=== PATIENT | male | born 1960 | race Caucasian/White ===

== ENCOUNTER 2025-01-05 17:29 | Inpatient (IN) | payer MEDICARE, SELFPAY ==
[2025-01-05] VITALS (30 sets, daily range): BP systolic 136–255; BP diastolic 70–127
[2025-01-05 12:20] LABS: % Basophils 0.9 % (0-2); % Eosinophils 4.6 % (0-6); % Immature Granulocytes 0.3 % (0-0.5); % Lymphocytes 21.1 % (20.5-51.1); % Monocytes 6.5 % (1.7-9.3); % Neutrophils 66.6 % (42.2-75.2); Absolute Basophils 0.1 10^3/uL (0-0.2); Absolute Eosinophils 0.3 10^3/uL (0-0.7); Absolute Lymphocytes 1.4 10^3/uL (1.2-3.4); Absolute Monocytes 0.4 10^3/uL (0.1-0.6); Absolute Neutrophils 4.3 10^3/uL (1.4-6.5); Hematocrit 41.5 % (39.0-52.0); Hemoglobin 14.1 g/dL (13.0-18.0); Mean Corpuscular Hgb 29.7 pg (27.0-31.0); Mean Corpuscular Volume 87.6 fL (80.0-94.0); Mean Platelet Volume 10.7 fL (7.4-10.4); Nucleated Red Blood Cells % 0 % (-); Platelet Count 291 10^3/uL (130-400); Red Blood Cell Count 4.74 10^6/uL (4.70-6.10); Red Cell Dist. Width 15.2 % (11.5-14.5); White Blood Cell Count 6.5 10^3/uL (4.8-10.8)
[2025-01-05 12:36] LABS: ALT (SGPT) 23 U/L (0-50); AST (SGOT) 24 U/L (17-59); Albumin 4.4 g/dl (3.5-5.0); Alkaline Phosphatase 91 U/L (38-126); Blood Urea Nitrogen 18 mg/dl (9-20); Calcium 10.2 mg/dl (8.4-10.2); Carbon Dioxide 32 mmol/L (22-30); Chloride 104 mmol/L (98-107); Glucose 105 mg/dl (70-99); Potassium 4.1 mmol/L (3.5-5.1); Sodium 144 mmol/L (135-145); Total Bilirubin 0.7 mg/dl (0.2-1.3); eGFR > 60.00
--- NOTE | 2025-01-05 15:07 | ED.GENMED ---
History of Present Illness
General
Chief Complaint: Failure to Thrive
Source: patient and family (Sons state he has had expressive aphasia for a little while commenting he had a stroke)
Exam Limitations: none
Time Seen by Provider: 01/05/25 14:52
Nursing documentation reviewed up to this point in time: agreed with
History of Present Illness
History of Present Illness:
64 yo male presents to the emergency department c/o declining health and cognition for the past several months, worse over the past several days. His son thinks he had a stroke. He is having trouble moving his right arm. He has not seen a doctor
in 10 to 12 years.
If applicable-neuro sx onset
Onset of symptoms known: No
Time pt last seen normal is known: No
Past History
Past History
ED Past Medical History: None
ED Past Surgical History: Orthopedic (back) and Tonsilectomy
Social History
Tobacco: Former smoker
Alcohol: None
Drug: None
Living: alone
Employment: Retired
Review of Systems
Review of Systems
Allergies reviewed?: Yes
All Other Systems: Not applicable
Constitutional: Reports no symptoms
EENT: Reports no symptoms
Respiratory: Reports no symptoms
Cardiac: Reports no symptoms
ABD/GI: Reports no symptoms
: Reports no symptoms
Musculoskeletal: Reports no symptoms
Skin: Reports no symptoms
Neurological: Reports weakness and other (difficulty speaking)
Endocrine: Reports no symptoms
Hematologic/Lymphatic: Reports no symptoms
Psychiatric: Reports no symptoms
Phy Exam
Physical Exam
Physical Exam:
Physical Exam
General: Blood pressure 214/115
Neck: supple. no meningeal signs. normal posterior pharynx
Heart: s1/s2 regular rate and rhythm, no murmur. equal radial
pulses.
HEENT: Pupils equal round reactive to light, EOMI
Lungs: no acute respiratory distress. clear bilaterally
Abdomen: normal bowel sounds. not tender. no CVAT
Neuro: alert and oriented to person and place. Right arm weakness, resting tremor right arm
Skin: no rash
Psychiatric: well kept. interactive and cooperative
Extremities: no edema. no calf tenderness. negative homans. good distal pulses
Course
Orders/Labs/Results
Orders:
Orders
01/05/25
Electrocardiogram (*1) Stat
Comment: ALREADY DONE
01/05/25 12:11
CMP [Comprehensive Metabolic Panel] Urgent
Complete Blood Count/With Diff Urgent
Folate Urgent
Comment: ADD WEI
Glycohemoglobin (HgbA1c) Urgent
TSH Reflex To Free T4 Urgent
Comment: ADD ON
Vitamin B12 Urgent
Comment: ADD ON
01/05/25 14:53
CT Head W/o Iv Contrast Urgent
Comment:
Reason For Exam: expressive aphasia
01/05/25 15:19
Electrocardiogram (*1) Urgent
Reason for Study: Hypertension, Benign
EKG- Treatment ONCE
01/05/25 15:23
Urinalysis Reflex To Culture Urgent
Date Specimen was Collected: 01/05/25
Time Specimen was Collected: 15:18
01/05/25 16:17
HydrALAZINE [Apresoline] 20 mg PO NOW STA
01/05/25 16:49
CT Head & Neck Angio W/wo IV Routine
Comment:
Reason For Exam: L MCA infarct
01/05/25 17:00
Aspirin Chewable [Low Strength Aspirin] 81 mg PO DAILY
01/05/25 17:04
Admit/Transfer Patient As Directed
Co-Sign Provider:
Level of Care: Inpatient admission
Assign to:: ICU
Physician / Group: Leonardo Og
Diagnosis: Hypertensive emergency; acute/subacute CVA
Reason for Hospitalization: Hypertensive emergency; acute/subacute CVA
Expected length of stay greater than two midnights?: Yes
ELOS- Estimated Length of Stay in days: 3
I certify the patient meets the requirements for IP care: Yes
PRN Pain Medication Management As Directed
May give lesser potent ordered pain med per pt: Yes
preference::
Protocol:: Medication orders for pain may be administered in a
manner that supports deferring to patient preference
when the pt is:
- Requesting an ordered lesser potent pain medication.
Least to most potent pain medications are defined
as: acetaminophen < NSAID < tramadol < opioids
(morphine, oxycodone, hydromorphone).
- Requesting a lesser dose of the same medication IF
ORDERED.
- Requesting a less intrusive route of administration
if both routes are prescribed by the provider (PO <
IV).
01/05/25 17:05
Code Status As Directed
Resuscitation Status: Full Code
01/05/25 17:08
Add On- LAB Routine
Tests Added?: TSH; T4
01/05/25 17:10
Aspirin Chewable [Low Strength Aspirin] 324 mg PO NOW STA
Nicardipine 40 mg/200 ml [Cardene] 40 mg in 200 ml IV NOW
Initial dose in mg/hr, then titrate:: 5
Titrate to keep:: SBP 140 - 160 mmHg
Titrate by mg/hr:: 2.5 mg/hr
Frequency of titrations (minutes):: 5-15 minutes
Maximum dose in mg/hr:: 15
Begin to taper infusion when:: Remained at goal for 2hrs
Taper by mg/hr:: 2.5 mg/hr
Frequency of taper (minutes) if patient maintains goal:: every 15-30 minutes
Taper to off?: Yes
If infusion off & no longer maintaining goal:: Contact Provider
01/05/25 19:33
Acetaminophen [Tylenol/Feverall] 650 mg RECTAL Q4HPRN PRN
Acetaminophen [Tylenol] 650 mg PO Q4HPRN PRN
Atorvastatin [Lipitor] 40 mg PO QPM
Enoxaparin Sodium [Lovenox] 40 mg SC QPM
01/05/25 19:33
Case Management Consult ONCE
Case Management Consult: Discharge Planning
Comment: stroke/tia
DIETARY IP CONSULT Routine
Reason for Consult: stroke/TIA
NEUROLOGY CONSULT Urgent
Consulting Provider: Di Arauz
Was physician already notified: Yes
Quality Assurance Engineer Urgent
Urinalysis Routine
Activity As Directed
Activity Level: Out of Bed-Early Mobility
NIH Stroke Scale As Directed
Directions: Per protocol
Comment: every shift and with any change in condition or mental status
Neurological Checks As Directed
Frequency: q4h
Additional Instructions:: q4h x 24h upon admission to the floor, then qshift & with any change in condition
and mental status
Patient Education As Directed
Type: Stroke education packet
Comment: provide to patient and family
Swallow Screening CVA/TIA ONLY As Directed
Comment: NPO until swallowing screening completed
If patient FAILS swallow screening:: NPO, Speech Therapy consult, Aspiration Precautions
If patient PASSES swallow screening, diet:: Sodium, 2 Gram
Vital Signs As Directed
Frequency: Per unit guidelines
Ot Eval And Treat Routine
Pt Eval And Treat Routine
Activity Level: As Tolerated
Speech Therapy Eval & Treat Routine
DX Deep Vein Thrombosis Video Routine
01/06/25 06:00
Echo 2D MMode Color/Doppler IN AM
Reason for Study: hypertensive emergency
Cardiovascular Evaluation IN AM
Complete Blood Count/No Diff IN AM
US Abdominal Aorta IN AM
Comment:
Reason For Exam: smoking;HTN emergency;intermittent abdominal pain
Abnormal Lab Results
01/05/25
12:11
RDW 15.2 H %
(11.5-14.5)
MPV 10.7 H fL
(7.4-10.4)
Carbon Dioxide 32 H mmol/L
(22-30)
Glucose 105 H mg/dl
(70-99)
01/05/25 12:11
01/05/25 12:11
Vital Signs
Initial and Last Documented VS:
Initial Vital Signs
Temp Pulse Resp BP Pulse Ox
98.3 F 72 20 214/115 97
01/05/25 11:59 01/05/25 11:59 01/05/25 11:59 01/05/25 11:59 01/05/25 11:59
Last Documented Vital Signs
Temp Pulse Resp BP Pulse Ox
97.9 F 82 10 174/92 97
01/05/25 16:17 01/05/25 19:15 01/05/25 19:15 01/05/25 19:15 01/05/25 19:15
MDM/Problems Addressed
Differential Diagnosis Includes:
CVA, Parkinson's, UTI
MDM/Problems Addressed:
64-year-old male with accelerated hypertension, CVA, likely Parkinson's. Admit to hospitalist for further workup. Froilan osorio initiated
Chronic conditions affecting care: HTN
*Radiology
Radiology exam reviewed: radiology read reviewed (CT head shows right frontoparietal infarct)
*Pulse Oximetry
Patient hypoxic: no
*EKG
Interpreted by ED Provider?: Yes
EKG Intrepretation Date: 01/05/25
EKG Intrepretation Time: 16:14
Interpretation: abnormal
Comparison EKG: changes noted
Heart Rate: 74
Rate: normal
Rhythm: sinus
Nickerson: normal axis
Interval: normal interval
QRS Pattern: normal QRS
Ischemia: T-wave inversion
*Machine Tool Designer Interpretation
Rate: normal
Interpretation: normal
Heart Rate: 75
Rhythm: sinus
*Critical Care Note
Total Time (30-74mins, 75-104mins- exclusive of procedures): 30
comment:
Critical care statement: A total of 30 minutes of critical care time was provided for this patient. This includes management of unstable vital signs, evaluation of the patient at bedside, reviewing the patient's pertinent medical records, discussion
with consultants, review of old EKGs and review of pertinent medical records. This time with separate from time utilized to perform the aforementioned documented procedures
Patient Management
Social determinants of health affecting care: Living situation
Discussion with other providers: Hospitalist
Escalation/DeEscalation of care consider admission/obs:
admit indicated
ED Attending Note
-
Portions of this chart may have been created with voice recognition software.� Occasional wrong word or��sound alike� substitutions may have occurred due to the inherent limitations of voice recognition software.
Discharge Plan
Departure
Patient Disposition: Admit
Date of Disposition: 01/05/25
Time of Disposition: 16:24
Admit to: IMU
Presentation/result/management discussed w/ accepting MD/DO: Hospitalist
Patient with high blood pressure during this ER visit?: Yes
Condition: Fair
Discharge Problem:
Acute CVA (cerebrovascular accident), Accelerated hypertension
Interventions
Interventions:
*General Assessment Last Done: 01/05/25 12:05
*Neglect/Abuse Screening Last Done: 01/05/25 15:41
*ED- Fall Risk Assessment Last Done: 01/05/25 15:41
[2025-01-05 15:46] LABS: Urine Albumin Negative (Neg - Trace); Urine Bilirubin Negative (Negative); Urine Character Clear (Clear); Urine Color Yellow; Urine Glucose Negative (Negative); Urine Ketone Negative (Negative); Urine Leukocyte Negative (Negative); Urine Nitrite Negative (Negative); Urine Occult Blood Negative (Negative); Urine Urobilinogen Negative (Neg - 1+)
[2025-01-05] MEDS: APRESOLINE 20 MG PO (16:25)
--- NOTE | 2025-01-05 16:44 | CON.NEURO ---
Consultation
Order
Date of Consultation: 01/05/25
Requesting Provider: Chester Kelley DO
Reason for Consult: Stroke
Neurology Consultation Note.
HPI: This is a 64-year-old RH man who presented to [facility] on 01/05/2025 with progressive cognitive and language dysfunction.
He has been experiencing gradual in onset progressive expressive aphasia for approximately one year, with worsening symptoms since his snf in June,.
Mr. Rosas has had a progressive ambulatory decline (shuffling gait, imbalance, falls) with intermittent right arm/hand resting tremor for at least a year and a half. His son has been driving and managing his finances for the last 2 years at his
request.
His sister has been helping with cooking. The patient finally 'let us(sons) bring him in' today when his sister left for family emergency
ER VS: 214/115-255/110, 72, afebrile
EKG: NSR, QTc Int : 417 ms
PDMP:none
Labs: Glucose�105, normal sodium, creatinine, WBCs, platelets.
CT head wo contrast-generalized atrophy, left MCA territory hypodensity
PMH: No prior medical care
PSH: Lumbar laminectomy
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
FH: DM
All:NKDA
ROS: Negative for headache, change in vision, positive for resting right hand tremor. Negative for hallucinations
General: Well developed. In no acute distress.
Cardio: Regular rate and rhythm without murmur. Extremities are without cyanosis or edema.
Neuro:
Mental Status: Alert, oriented to self, person. Severe nonfluent expressive aphasia. Follows simple requests consistently.
Cranial Nerves: Pupils are equally round and reactive to light. EOMs full. Visual nielson full to confrontation. No ptosis. No nystagmus. V1-V3 intact to light touch and pinprick bilaterally, symmetric. Face symmetric. Normal hearing AU. The
palate elevated well. SCMs and traps 5/5. Tongue midline. No dysarthria.
Motor: Normal bulk and tone. No pronator or arm drift. Strength 5/5 throughout. No clonus.
Reflexes: 2+ throughout the upper extremities and 3+ knees. Plantar responses flexor bilaterally.
Sensory: Limited exam due to aphasia
Coordination: Intermittent right hand resting tremor. No dysmetria
Gait: deferred
Assessment and Plan:
I. Parkinsonism, likely vascular
II. Progressive nonfluent aphasia.
III. Hypertensive urgency
IV. Left MCA territory hypodensity. Subacute versus chronic infarct
-Continue Telemetry monitoring
-Please obtain CTA head and neck
-Start ASA 81 mg QD
-Please check B12, TSH, HbA1C, LDL.
-PT.
-DVT prophylaxis.
I personally reviewed all radiology and labs along with past medical records pertinent to current medical problems. Total time spent in patient care is 60 minutes.
Thank you for allowing us to participate in the care of this patient. We will continue to follow. Please do not hesitate to contact us with any questions or concerns.
Subjective/Objective
Subjective Data
Date of Service: January 05, 2025
Objective Data
Vital Signs
Temp Pulse Resp BP Pulse Ox
36.6 C 71 16 255/110 98
01/05/25 16:17 01/05/25 16:25 01/05/25 16:17 01/05/25 16:25 01/05/25 16:17
Lab Results
01/05/25 12:11
01/05/25 12:11
Sodium 144 mmol/L (135-145) 01/05/25 12:11
Potassium 4.1 mmol/L (3.5-5.1) 01/05/25 12:11
BUN 18 mg/dl (9-20) 01/05/25 12:11
Glucose 105 mg/dl (70-99) H 01/05/25 12:11
Calcium 10.2 mg/dl (8.4-10.2) 01/05/25 12:11
Patient Allergies
No Known Allergies Allergy (Unverified 01/05/25 12:02)
Vital Signs and Labs
-
Vital Signs and Labs:
Vital Signs
Temp Pulse Resp BP Pulse Ox
36.6 C 71 16 255/110 98
01/05/25 16:17 01/05/25 16:25 01/05/25 16:17 01/05/25 16:25 01/05/25 16:17
Lab Results
01/05/25 12:11
01/05/25 12:11
Sodium 144 mmol/L (135-145) 01/05/25 12:11
Potassium 4.1 mmol/L (3.5-5.1) 01/05/25 12:11
BUN 18 mg/dl (9-20) 01/05/25 12:11
Glucose 105 mg/dl (70-99) H 01/05/25 12:11
Calcium 10.2 mg/dl (8.4-10.2) 01/05/25 12:11
[2025-01-05] MEDS: LOW STRENGTH ASPIRIN PO (17:18)
[2025-01-05] MEDS: LOW STRENGTH ASPIRIN 324 MG PO (17:24)
[2025-01-05] MEDS: CARDENE 200 IV ×2 (17:37→19:51)
--- NOTE | 2025-01-05 17:55 | HPS.HSE ---
Addendum entered and electronically signed by Leonardo Og MD 01/05/25 22:00:
64M no hx presenting with progressive cognitive decline and speech changes that has been ongoing of the last 2 years. Now found to have concerning finding on CT of subacute CVA along with a blood pressure of >230.
Subacute CVA with concern for Primary expressive (per Neuro) and Parkinson (seborrhoic dermatitis and resting pill roll tremor)
-MRI/MRA
-Asa
-HIStatin
-Obtain A1c and Lipid profile
-Neuro consult
HTN Emergency
-Recieved oral agents in the ED
-Strted on Cardene gtt with SBP/MAP reduction of 25% within 24hours
-Start low dose lisinopril and HCTZ
-Check 2d echo
-Check UA for protein
?Intention reported per son
-If BP still uncontrolled can trial low dose propanolol
LVH on EKG
-Likely related to long standing uncontrolled HTN
-Check 2d echo
Smoking hx - active
-Discussed cessation
-Give NRT
-Abdominal Ultraosund to R/o AAA
Original Note:
Family Physician
-
Family Physician: * NONE
Chief Complaint
-
Aphasia, per sons
History of Present Illness
Michael Rosas, 64-year-old male, who has not seen a physician in years is brought in by his sons for at least a year of expressive aphasia, worsening tremors, balancing and gait issues, recurrent falls and progressive cognitive decline. In the ED, he
was found to have blood pressure in 250s/110s and was given hydralazine PO. CT head consistent with acute/subacute CVA. Neurology saw in the ED; no indication for TNK. He is also a smoker and has complained of occasional abdominal pain generalized
for the past few years.
Medical History
Past Medical History
Past Medical History: Reports Other (chronic back pain; tobacco use disorder)
Past Surgical History: Reports Other (spine surgery)
Social History
Tobacco: Smoker (previous pack a day; 2-3 cigs per week now)
Alcohol: Occasional
Drug: None
Employment: Retired
Family History
Family History: Not pertinent
Allergies / Home Medications
Allergies reflects when Allergies were last updated in [facility] [employer].
Home Medications with original date entered in [employer]
Allergy/Medication List:
Allergies
Allergy/AdvReac Type Severity Reaction Status Date / Time
No Known Allergies Allergy Unverified 01/05/25 12:02
Home Medications
naproxen 220 mg-diphenhydramine 25 mg tablet (Aleve PM) 2 tab PO HS 01/05/25
naproxen sodium 220 mg tablet (Aleve) 440 mg PO BIDPRN PRN mild pain 01/05/25
Review of Systems
-
History Source: Patient
Constitutional: Reports No Symptoms
EENT: Reports No Symptoms
Respiratory: Reports No Symptoms
Cardiac: Reports No Symptoms
Abdomen/GI: Reports No Symptoms
: Reports No Symptoms
Musculoskeletal: Reports No Symptoms
Skin: Reports No Symptoms
Neurological: Reports No Symptoms
Endocrine: Reports No Symptoms
Hematologic/Lymphatic: Reports No Symptoms
Psych: Reports No Symptoms
Physical Exam
Vital Signs
Vital Signs
Temp Pulse Resp BP Pulse Ox
97.9 F 74 16 220/117 98
01/05/25 16:17 01/05/25 17:38 01/05/25 17:38 01/05/25 17:38 01/05/25 17:38
Physical Exam
General: No Apparent Distress and Comfortable
HEENT: NormoCephalic, Anicteric, Moist mucous membranes and No Ptosis
Respiratory: Clear and Non Labored Respirations
Cardiac: S1/S2 and Regular Rhythm; No Rub or Gallop
GI: Soft, Non Tender, Non Distended and No Hepatosplenomegaly
Genito-urinary: No costovertebral tender
Musculoskeletal: No Clubbing, No Cyanosis and No Edema
Skin: Warm, Dry, IV/Catheter Site and Other (excoriations generalized, changes consistent with seborrheic dermatitis)
Neuro: Awake, Alert, Oriented and Tremors (resting and intention tremor; pill-rolling tremor)
Hematologic/Lymphatic: No Lymphadenopathy
Psych: Calm and Anxious
Laboratory Results
-
01/05/25 12:11
01/05/25 12:11
Laboratory Results
Total Bilirubin 0.7 mg/dl (0.2-1.3) 01/05/25 12:11
AST 24 U/L (17-59) 01/05/25 12:11
ALT 23 U/L (0-50) 01/05/25 12:11
Alkaline Phosphatase 91 U/L (38-126) 01/05/25 12:11
Impression/Plan
-
Hypertensive emergency
- Status-post hydralazine 20 mg PO in ED.
- Nicardipine drip to keep SBP 180-200 mmHg in the first 24 hours.
- Start hydrochlorothiazide and lisinopril.
- Goal of lowering BP by only 25% in the first 24 hours.
- Suspect hypertension has been a chronic issue, and anticipate requiring a multi-drug regimen.
- Check echocardiogram and abdominal aorta ultrasound.
- Admit to the ICU for nicardipine drip management.
Subacute/chronic cerebrovascular accident
Expressive aphasia, likely secondary to above
- Neurology saw him in the ED.
- Start aspirin and high-intensity statin.
- MR without contrast in AM.
- Lipid panel, TSH with T4, A1c and B12 pending.
Suspected Parkinsonian disorder
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
- Needs further outpatient evaluation.
- Likely responsible for increased falls of late.
Tobacco use disorder
- Affects all aspects of health.
- Nicotine patch if needed.
Chronic back pain
- Analgesia as needed.
Thromboprophylaxis
- Enoxaparin.
Code status
- Full code.
- Medical POA: Kamaljit (son).
[2025-01-05 18:21] LABS: TSH Reflex To Free T4 1.98 uIU/ml (0.47-4.68)
[2025-01-05 19:36] LABS: Folate 9.6 ng/ml (2.76-20); Vitamin B12 249 pg/ml (239-931)
--- NOTE | 2025-01-05 19:45 | PTCARENOTE ---
Rec'd pt from ER via stretcher accomp by FARM FACILITY MANAGER, NIH done w/ FARM FACILITY MANAGER- NIH 2, pt awake, oriented, cooperative, slight exp aphasia, SINA at 3mm, arms tremulous, anxious, sons at bedside, Sinus rhythm cardene gtt started for bp 213/99- see flow sheet for
titrations-goal SBP 180-200, weak distal pulses, no edema, RA, lungs clear, sat 96, + bowel sounds,no bm, abdsoft/nontender,sharon fluids, #25 condom cath applied
--- NOTE | 2025-01-05 19:49 | PTCARENOTE ---
Pt transported to ICU by this RN in ed stretcher, monitored with family to ICU. report called prior to, to Mira ROJAS and additional verbal report provided at bedside. NIH preformed by receiving RN. plan of care continues to be followed.
[2025-01-05 19:54] LABS: Glucose - Point of Care 111 mg/dl (70-99)
[2025-01-05] MEDS: LIPITOR 40 MG PO (20:11)
[2025-01-05] MEDS: ZESTRIL 5 MG PO (20:11)
[2025-01-05] MEDS: ORETIC 12.5 MG PO (20:11)
[2025-01-05] MEDS: LOVENOX 40 MG SC (20:11)
[2025-01-05 20:22] LABS: Phosphorus 4.4 mg/dl (2.5-4.5)
[2025-01-05 20:28] LABS: INR 1.04; PT 13.9 Sec (11.4-14.6)
[2025-01-05 20:29] LABS: APTT 30.9 Sec (23.4-35.0)
--- NOTE | 2025-01-05 20:45 | PTCARENOTE ---
To CT for CT head/ neck angio via bed accomp by self
--- NOTE | 2025-01-05 21:15 | PTCARENOTE ---
returned from CT
2129 cardene gtt off for bp 162/82- K SYEDA Jones aware- will cont to monitor
[2025-01-05 21:46] LABS: Urine Albumin Negative (Neg - Trace); Urine Bilirubin Negative (Negative); Urine Character Clear (Clear); Urine Color Straw; Urine Glucose Negative (Negative); Urine Ketone Negative (Negative); Urine Leukocyte Negative (Negative); Urine Nitrite Negative (Negative); Urine Occult Blood Negative (Negative); Urine Urobilinogen Negative (Neg - 1+)
[2025-01-05] MEDS: MELATONIN 5 MG PO (22:21)
[2025-01-05 22:54] LABS: Protein/creatinine Ratio 0.6; Urine Protein 9 mg/dl
[2025-01-05] MEDS: NSS 500 IV (23:48)
--- NOTE | 2025-01-05 23:53 | PTCARENOTE ---
sys reviewed, José Miguel Jones NP aware of bp, 500ml nss bolus hung per order, no changes in neuro assessment
[2025-01-06] VITALS (31 sets, daily range): BP systolic 156–193; BP diastolic 84–161; PULSE 87–100; O2SAT 94–97; BMI 19.6
[2025-01-06 03:34] LABS: Hematocrit 42.3 % (39.0-52.0); Mean Corp Hgb Conc. 35.5 g/dL (33.0-37.0); Mean Corpuscular Volume 84.6 fL (80.0-94.0); Mean Platelet Volume 10.3 fL (7.4-10.4); Platelet Count 282 10^3/uL (130-400); Red Cell Dist. Width 15.1 % (11.5-14.5); White Blood Cell Count 7.7 10^3/uL (4.8-10.8)
--- NOTE | 2025-01-06 03:37 | PTCARENOTE ---
sys reviewed, neuro unch
[2025-01-06 03:56] LABS: ALT (SGPT) 21 U/L (0-50); AST (SGOT) 26 U/L (17-59); Albumin 3.8 g/dl (3.5-5.0); Alkaline Phosphatase 96 U/L (38-126); Blood Urea Nitrogen 13 mg/dl (9-20); Calcium 9.9 mg/dl (8.4-10.2); Carbon Dioxide 28 mmol/L (22-30); Chloride 104 mmol/L (98-107); Estimated Creatinine Clearance 86 ml/min; Glucose 105 mg/dl (70-99); HDL Cholesterol 69 mg/dl; LDL Cholesterol, Calculated 167 mg/dl; Potassium 3.8 mmol/L (3.5-5.1); Sodium 140 mmol/L (135-145); Total Bilirubin 0.8 mg/dl (0.2-1.3); Total Cholesterol 254 mg/dl (50-199); Total Protein 6.6 g/dl (6.3-8.2); Triglyceride 90 mg/dl (10-149); Very Low Density Lipoprotein 18 mg/dl (0-30); eGFR > 60.00
--- NOTE | 2025-01-06 08:20 | CON.INTV ---
Consultation
Consultation Request
Date/Time Consultation Requested: 01/05/20251739
Date/Time Consultation Performed: 01/06/2025817
Requesting Provider: Dr. Whatley
Performing Provider: Dr. Taylor
Reason for Consultation: HTN crisis on cardene drip
Medical History
-
Chief Complaint: Difficulty speaking with physical and cognitive decline
History of Present Illness:
64-year-old male with a past medical history of chronic back pain and tobacco use disorder who presents with difficulty answering questions and declining physical + cognitive health. Patient has not seen a doctor in the past 10-12 years. Family is
noticed this cognitive decline with speech changes over the last 2 years. Initially in the ER he was afebrile to 98.3 �F, pulse rate 72, respiratory rate 20, BP 214/115 and saturating 97% on room air. SBP sheldon to as high as 255 mmHg. Initial labs
showed Hb 14.[address] head showed suspected acute/subacute infarcts in the left frontal parietal lobe. CTA head/neck showed no significant vascular occlusion, aneurysm or dissection. CXR showed no acute cardiopulmonary process.
He was given aspirin 324 mg X1 + hydralazine in the ER and then required Cardene drip. He was then admitted to the ICU for further care and Site Head services consulted for additional management/recommendations.
When I saw the patient this morning, he was resting in a chair no acute distress. His son, Kamaljit, was at bedside and all questions were answered. Patient's heart rate was 86, BP 193/121 and saturating 94% on room air. Patient says he feels okay,
denying ROSALES, chest pain, abdominal pain, nausea, fevers or chills.
PMHx: Chronic back pain, tobacco use disorder
PSHx: Spine surgery
Past Medical History
Past Medical History: Other (Above as per HPI)
Past Surgical History: Other (Above as per HPI)
Social History
Tobacco: Smoker (Previously smoked 1 PPD; now 2 to 3 cigarettes last week)
Alcohol: Occasional
Drug: None
Employment: Retired
Family History
Family History: Reviewed & Not Pertinent
Allergies / Home Medications
Allergies
Allergy/AdvReac Type Severity Reaction Status Date / Time
No Known Allergies Allergy Unverified 01/05/25 12:02
Home Medications
�Medication �Instructions �Recorded �Confirmed �Last Taken �Type
naproxen 220 mg-diphenhydramine 25 2 tab PO HS 01/05/25 01/05/25 Unknown History
mg tablet (Aleve PM)
naproxen sodium 220 mg tablet 440 mg PO BIDPRN PRN mild pain 01/05/25 01/05/25 Unknown History
(Aleve)
Review of Systems
-
History Source: Patient
All other systems: Negative unless noted
Vitals / Labs / Diagnostic Testing
Vital Signs
Temp Pulse Resp BP Pulse Ox
98.1 F 63 14 156/90 96
01/06/25 07:30 01/06/25 06:00 01/06/25 06:00 01/06/25 06:00 01/06/25 06:00
Lab Data
01/06/25 03:22
01/06/25 03:22
Laboratory Results
01/05/25
20:06
PT 13.9
INR 1.04
APTT 30.9
Diagnostic Testing:
Physical Exam
-
HEENT: Normocephalic and Anicteric
Cardiovascular: S1/S2 and Peripheral Edema (negative)
Respiratory: Wheeze (negative), Rales (negative), Rhonchi (negative) and Non-Labored Respirations
GI: Soft, Non Distended, Non Tender and Normal Bowel Sounds
Neurology: AO x 3 and Tremors (negative)
Skin: Warm and Dry
General: Respiratory Distress (negative), Comfortable, Fever (negative), Chills (negative) and Other (Chronically ill appearing/deconditioned)
Assessment
-
Assessment: 64-year-old male with a past medical history of chronic back pain and tobacco use disorder who presents with difficulty answering questions and declining physical + cognitive health. Patient has not seen a doctor in the past 10-12
years. Family is noticed this cognitive decline with speech changes over the last 2 years. Initially in the ER he was afebrile to 98.3 �F, pulse rate 72, respiratory rate 20, BP 214/115 and saturating 97% on room air. SBP sheldon to as high as 255
mmHg. Initial labs showed Hb 14.[address] head showed suspected acute/subacute infarcts in the left frontal parietal lobe. CTA head/neck showed no significant vascular occlusion, aneurysm or dissection. CXR showed no acute
cardiopulmonary process. He was given aspirin 324 mg X1 + hydralazine in the ER and then required Cardene drip. He was then admitted to the ICU for further care and Site Head services consulted for additional management/recommendations.
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
Impression:
#Hypertensive crisis requiring Cardene drip --> now discontinued
#Hypercholesterolemia
#Active tobacco use disorder
#Progressive expressive aphasia with cognitive decline and progressive ambulatory dysfunction likely due to subacute left MCA infarct with parkinsonism
#Chronic back pain
Plan:
- Patient was admitted to the ICU, required Cardene drip which has been off since the evening of 01/05
- Lower SBP by 25% over the first 24 hours the goal SBP for today until 4 PM is 170-190, then can lower further from there to goal SBP<140-160mmHg
- Start PO anti-hypertensives to assure pt stays off cardene gtt
- Neurology consulted and recommendations appreciated
- MRI brain pending
- Neurology wants patient to be on baby aspirin once daily
- PT/OT/AIR CHIPPER
- Lipitor started given LDL is 167 (goal LDL<70)
- Patient has a low B12 level despite it being in normal range; would check MMA and homocysteine levels
- Hospitalist team has started supplemental B12
- Maintain SpO2 >90-94% using supplemental O2 if needed
- Aspiration precautions
- prn nebulized bronchodilators - not currently bronchospastic
- Nicotine patch
- Incentive spirometer encouraged 10x per hour for at least 4 hrs a day
- Outpatient PFTs to assess for an obstructive or restrictive lung defect
- Maintain MAP>65
- Replete electrolytes with K>4, Mg>2
- Maintain euglycemia with goal BG 140-180
- Trend H/H and transfuse if needed to keep Hb>7g/dL; keep plt>100k
- DVT ppx: [facility]
Outpatient pulmonary office evaluation will be arranged for lung cancer screening given his significant tobacco use history.
Patient is now stable to be downgraded to telemetry. No additional recommendations at this time. Site Head/Pulmonary service will now sign off. Thank you for allowing us to be involved in the care of this patient. Please reconsult if there are
any additional questions/concerns, or if patient's respiratory status deteriorates.
Data:
CT head 01/05/2025: Possible small areas of acute/subacute infarcts in the left frontoparietal lobe. MRI would be of greater sensitivity.
CTA Head/Neck 01/05/2025: No significant vascular occlusion, aneurysm or dissection.
--- NOTE | 2025-01-06 09:00 | PTCARENOTE ---
Rec'd pt at 0700- Neuro check and NIH completed with offgoing shift. Rec't pt awake alert and overall oriented resting in bed. Converstation is appropriate but pt still with some expressive aphasia especially when asking how old his is, the month or
his birthdate. NIH is a 3.Speech is clear. Smile is even. Tongue protrudes midline. NOLAND. Pt with resting arm tremors. Denies pain. Denies dizziness or headache. Skin is pink wm and dry. Respirs are unlabored on RA with sats of 97%. BS are clear.
Monitor SR. VS as documented. + pulses. No edema. Abd is soft with + BS. Denies nausea. #[address] and pt voiding yellow urine. Capped ints intact L and R arms sites wnl. Pt able to help reposition himself. Plan of care reviewed with
pt. Call puente in reach.
[2025-01-06] MEDS: LOW STRENGTH ASPIRIN 81 MG PO (09:33)
[2025-01-06] MEDS: ORETIC 12.5 MG PO (09:33)
[2025-01-06] MEDS: ZESTRIL 5 MG PO (09:33)
--- NOTE | 2025-01-06 09:55 | W.PN.NEURO.1 ---
Today's Communication / Plan
-
.
Subjective/Objective
Subjective Data
Date of Service: January 06, 2025
Neurology follow-up note
24-hour events: Blood pressure has improved. Afebrile.
Mr. Rosas reports no complaints. He denies headache, change in vision or strength.
Brain MRI is pending
Labs: Vitamin B12�249, TSH�normal
CT head wo contrast-generalized atrophy, left MCA territory hypodensity
CTA head and neck�no hemodynamically significant stenosis
PMH: No prior medical care
PSH: Lumbar laminectomy
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
FH: DM
All:NKDA
ROS: Negative for headache, change in vision, positive for resting right hand tremor. Negative for hallucinations
General: Well developed. In no acute distress.
Cardio: Regular rate and rhythm without murmur. Extremities are without cyanosis or edema.
Neuro:
Mental Status: Alert, oriented to self, person. nonfluent expressive aphasia (slightly improved). Follows simple requests consistently.
Cranial Nerves: Pupils are equally round and reactive to light. EOMs full. Visual nielson full to confrontation. No ptosis. No nystagmus. V1-V3 intact to light touch and pinprick bilaterally, symmetric. Face symmetric. Normal hearing AU. The
palate elevated well. SCMs and traps 5/5. Tongue midline. No dysarthria.
Motor: Normal bulk and tone. No pronator or arm drift. Strength 5/5 throughout. No clonus.
Reflexes: 2+ throughout the upper extremities and 3+ knees. Plantar responses flexor bilaterally.
Sensory: Limited exam due to aphasia
Coordination: Intermittent right hand resting tremor. No dysmetria
Gait: deferred
Assessment and Plan:
I. Parkinsonism, likely vascular
II. Progressive nonfluent aphasia.
III. Hypertensive urgency
IV. Left MCA territory hypodensity. Subacute versus chronic infarct
V. Vitamin B12 insufficiency
-Continue Telemetry monitoring
-Continue ASA 81 mg QD
-Start cyanocobalamin 1000 mcg once a day
-Will follow-up brain MRI result
-DVT prophylaxis.
I personally reviewed all radiology and labs along with past medical records pertinent to current medical problems. Total time spent in patient care is 35 minutes.
Thank you for allowing us to participate in the care of this patient. We will continue to follow. Please do not hesitate to contact us with any questions or concerns
Objective Data
Vital Signs
Temp Pulse Resp BP Pulse Ox
36.7 C 63 14 156/90 96
01/06/25 07:30 01/06/25 06:00 01/06/25 06:00 01/06/25 06:00 01/06/25 06:00
Lab Results
01/06/25 03:22
01/06/25 03:22
PT 13.9 Sec (11.4-14.6) 01/05/25 20:06
INR 1.04 01/05/25 20:06
APTT 30.9 Sec (23.4-35.0) 01/05/25 20:06
Sodium 140 mmol/L (135-145) 01/06/25 03:22
Potassium 3.8 mmol/L (3.5-5.1) 01/06/25 03:22
BUN 13 mg/dl (9-20) 01/06/25 03:22
Glucose 105 mg/dl (70-99) H 01/06/25 03:22
Calcium 9.9 mg/dl (8.4-10.2) 01/06/25 03:22
Phosphorus 4.4 mg/dl (2.5-4.5) 01/05/25 12:11
LDL Cholesterol, Calc 167 mg/dl 01/06/25 03:22
Vitamin B12 249 pg/ml (239-931) 01/05/25 12:11
Patient Allergies
No Known Allergies Allergy (Unverified 01/05/25 12:02)
Vital Signs and Labs
-
Vital Signs and Labs:
Vital Signs
Temp Pulse Resp BP Pulse Ox
36.7 C 63 14 156/90 96
01/06/25 07:30 01/06/25 06:00 01/06/25 06:00 01/06/25 06:00 01/06/25 06:00
Lab Results
01/06/25 03:22
01/06/25 03:22
PT 13.9 Sec (11.4-14.6) 01/05/25 20:06
INR 1.04 01/05/25 20:06
APTT 30.9 Sec (23.4-35.0) 01/05/25 20:06
Sodium 140 mmol/L (135-145) 01/06/25 03:22
Potassium 3.8 mmol/L (3.5-5.1) 01/06/25 03:22
BUN 13 mg/dl (9-20) 01/06/25 03:22
Glucose 105 mg/dl (70-99) H 01/06/25 03:22
Calcium 9.9 mg/dl (8.4-10.2) 01/06/25 03:22
Phosphorus 4.4 mg/dl (2.5-4.5) 01/05/25 12:11
LDL Cholesterol, Calc 167 mg/dl 01/06/25 03:22
Vitamin B12 249 pg/ml (239-931) 01/05/25 12:11
Medications
-
Medications:
Generic Name Dose Route Start Last Admin
Trade Name Freq PRN Reason Stop Dose Admin
Acetaminophen 650 mg 01/05/25 19:33
Acetaminophen 650 Mg Rectal Suppository RECTAL 02/02/25 19:32
Q4HPRN PRN
ROSALES, mild pain, or temp >100.4F
Acetaminophen 650 mg 01/05/25 19:33
Acetaminophen 325 Mg Tablet PO 02/02/25 19:32
Q4HPRN PRN
ROSALES, mild pain, or temp >100.4F
Aspirin 81 mg 01/05/25 17:00 01/06/25 09:33
Aspirin 81 Mg Chewable Tablet PO 02/02/25 16:59 81 mg
DAILY MARTIN Administration
Atorvastatin Calcium 40 mg 01/05/25 19:33 01/05/25 20:11
Atorvastatin (Lipitor) 40 Mg Tablet PO 02/02/25 19:32 40 mg
QPM MARTIN Administration
Cyanocobalamin 1,000 mcg 01/06/25 09:00
Cyanocobalamin 1,000 Mcg Tablet PO 02/03/25 08:59
DAILY MARTIN
Enoxaparin Sodium 40 mg 01/05/25 20:00 01/05/25 20:11
Enoxaparin Sodium 40 Mg/0.4 Ml Syringe SC 02/02/25 19:59 40 mg
QPM MARTIN Administration
Hydrochlorothiazide 12.5 mg 01/05/25 20:00 01/06/25 09:33
Hydrochlorothiazide 12.5 Mg Tablet PO 02/02/25 19:59 12.5 mg
BID MARTIN Administration
Nicardipine/Sodium Chloride 40 mg in 200 mls @ 0 mls/hr 01/05/25 19:33 01/05/25 19:51
Cardene IV 200 mls
PER PROTOCOL MARTIN Administration
Protocol
Per Protocol
Lisinopril 5 mg 01/05/25 20:00 01/06/25 09:33
Lisinopril 5 Mg Tablet PO 02/02/25 19:59 5 mg
BID MARTIN Administration
Melatonin 5 mg 01/05/25 22:00 01/05/25 22:21
Melatonin 5 Mg Tablet PO 02/02/25 21:59 5 mg
HS MARTIN Administration
Sodium Chloride 0 flush 01/05/25 20:00
Sodium Chloride 0.9% (Flush) Syringe IV 02/02/25 19:59
PER PROTOCOL MARTIN
Home Medications
-
Home Medications
naproxen 220 mg-diphenhydramine 25 mg tablet (Aleve PM) 2 tab PO HS 01/05/25
naproxen sodium 220 mg tablet (Aleve) 440 mg PO BIDPRN PRN mild pain 01/05/25
--- NOTE | 2025-01-06 10:00 | PTCARENOTE ---
ECHO done. Pt resting. VS as documented. AM meds given as ordered at 0935
[2025-01-06 10:25] LABS: Glycohemoglobin (HgbA1c) 5.5 % (4.0-5.6)
[2025-01-06 10:27] LABS: Vitamin B12 262 pg/ml (239-931)
--- NOTE | 2025-01-06 11:07 | PTCARENOTE ---
US of aorta being done currently. BP is elevated in the 160-190's despite am meds. Will update Dr. Og. No other changes
--- NOTE | 2025-01-06 11:22 | CM ---
Addendum entered by Tee Ruelas 01/06/25 16:07:
PT and OT evaluations noted -rehab level of care recommended. CM discussed it with the pt and son Kamaljit and they requested [facility].
A referral to [facility] made
Original Note:
CM following rte: discharge planning.
Reviewed pt's chart, met with pt.
Pt is a 64 year old male, admitted with primary dx of TIA/CVA. CT head consistent with acute/subacute CVA. Per sons, pt has been experiencing for the past 2 years expressive aphasia, worsening tremors, balancing and gait issues, recurrent falls and
progressive cognitive decline.
Pt reports he lives alone 2SH, 1 step to enter, has 2 sons. 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 No DME, VN or SNF history.
PT, OT and ST will evaluate the pt to determine a level of care at discharge.
PCP: pt stated he does not have PCP.
Pharmacy: [facility]
D/C plan: uncertain at this time. Awaiting PT/OT/D -ST recommendations.
CM will follow with discharge plan updates as hospitalization progresses
--- NOTE | 2025-01-06 11:24 | W.PN.HOSP.TC ---
Today's Communication/Plan
-
* Echocardiogram, abdominal aorta ultrasound, and MR brain W/O contrast today.
* Transfer to telemetry.
* Optimize PO antihypertensives.
Assessment / Plan
Assessment / Plan
Assessment
Michael Rosas, 64-year-old male, who has not seen a physician in years is brought in by his sons for at least a year of expressive aphasia, worsening tremors, balancing and gait issues, recurrent falls and progressive cognitive decline. In the ED, he
was found to have blood pressure in 250s/110s and was given hydralazine PO. CT head consistent with acute/subacute CVA. Neurology saw in the ED; no indication for TNK. He is also a smoker and has complained of occasional abdominal pain generalized
for the past few years.
Impression and plan
Hypertensive emergency
- Status-post hydralazine 20 mg PO in ED, and nicardipine drip in the ICU.
- Increase hydrochlorothiazide and lisinopril dosing.
- Goal SBP of 140-160 after 4 PM today.
- Suspect hypertension has been a chronic issue, and anticipate requiring a multi-drug regimen.
- Echocardiogram and abdominal aorta ultrasound today.
- Transfer to telemetry.
- Anticipate requiring additional antihypertensive agents.
- Needs to establish with a primary; will discuss options, including the residency clinic.
Subacute/chronic cerebrovascular accident
Expressive aphasia, likely secondary to above
- Neurology saw him in the ED.
- Continue aspirin and high-intensity statin indefinitely.
- MR without contrast today.
- TSH normal, LDL 167 (not at goal of <70).
Elevated ejection fraction
Stage I diastolic dysfunction
- Would recommend a repeat echocardiogram as outpatient eventually.
- Discuss with primary.
Suspected Parkinsonian disorder
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
- Needs further outpatient evaluation.
- Likely responsible for increased falls of late.
- Will need pharmacotherapy, and neurology consultation as outpatient.
B12 deficiency
- Replete with 1000 mg PO daily for now.
Tobacco use disorder
- Affects all aspects of health.
- Nicotine patch if needed.
Chronic back pain
- Analgesia as needed.
Thromboprophylaxis
- Enoxaparin.
Code status
- Full code.
- Medical POA: Kamaljit (son).
Anticipated Discharge: Within 24 hours
Subjective/Interval History
-
Date of Service: January 06, 2025
Stable overnight. Feeling better.
Objective Data
-
Labs:
Laboratory Results
01/06/25
03:22
WBC 7.7
Hgb 15.0
Hct 42.3
Plt Count 282
Sodium 140
Potassium 3.8
Chloride 104
Carbon Dioxide 28
BUN 13
Creatinine 0.7
Glucose 105 H
Calcium 9.9
Total Bilirubin 0.8
AST 26
ALT 21
Alkaline Phosphatase 96
Vital Signs:
Vital Signs
Temp Pulse Resp BP Pulse Ox
97.5 F 90 16 192/108 96
01/06/25 11:21 01/06/25 11:00 01/06/25 11:00 01/06/25 11:00 01/06/25 11:00
I&O
01/05/25 01/06/25 01/07/25
06:59 06:59 06:59
Intake Total 612.5 / 612.5 0 / 0
Output Total 1850 / 185
Balance -1237.5 / -1237.5 0 / 0
Review of Systems
-
History Source: Patient
Constitutional: Reports No Symptoms
EENT: Reports No Symptoms Reported
Respiratory: Reports No Symptoms
Cardiac: Reports No Symptoms
Abdomen/GI: Reports No Symptoms
Genitourinary: Reports No Symptoms
Musculoskeletal: Reports No Symptoms
Skin: Reports No Symptoms
Neuro: Reports No Symptoms
Endocrine: Reports No Symptoms
Hematologic / Lymphatic: Reports No Symptoms
Allergy / Immunology: Reports No Symptoms
Physical Exam
-
General: No Apparent Distress and Comfortable
HEENT: Normocephalic, Atraumatic, Moist Mucous Membranes, Anicteric and No Ptosis
Respiratory: Clear to Auscultation and Non Labored Respirations
Cardiac: Regular Rhythm and S1/S2
GI: Soft, Nontender, Nondistended and No Hepatosplenomegaly
Genito-urinary: No Costovertebral Tender
Musculoskeletal: No Clubbing, No Cyanosis and No Edema
Skin: Warm, Dry and IV Access / Catheter Site
Neuro: Awake, Alert, Oriented, No Motor Deficits and No Sensory Deficits
Hematologic / Lymphatic: No Lymphadenopathy
Psych: Calm
--- NOTE | 2025-01-06 11:30 | PTCARENOTE ---
Pt anxious and c/o being uncomfortable in the bed. Assisted oob to the chair with assist of 1. Gait is weak and a little unsteady/shaky. Chair alarm placed and pt reminded that he needs to use the call puente if he wants to stand up. Wanted to keep
the condom cath on. Skin care given. Pt did own mouth care. Visitor in with pt.
--- NOTE | 2025-01-06 12:00 | PTCARENOTE ---
Pt on toilet then BSC - had large brown BM on BSC. Assessment overall is unchanged. Overall conversation is appropriate but still has some expressive aphasia. Needs direction for some activity - especially when assisting to the bathroom for bsc.
Very shaky with his gait. VS as documented. Son in to see pt and updated. Call puente in reach
[2025-01-06] MEDS: VITAMIN B-12 1000 MCG PO (13:39)
--- NOTE | 2025-01-06 14:00 | PTCARENOTE ---
PT/OT and speech all in to see pt. Eating lunch currently. Report called to the 3rd floor will transfer pt after he finishes lunch.
[2025-01-06 14:03] LABS: NT-proBNP 441 pg/ml
--- NOTE | 2025-01-06 15:20 | PTCARENOTE ---
Pt transferred via wheelchair to RM 336-2- Neuro check and NIH completed with 3 Gordo RN
--- NOTE | 2025-01-06 15:55 | PTOTSP ---
WELFARE DIRECTOR Evaluations
Patient with dysphagia risk factors (i.e., CVA, Parkinsonism) but oral/pharyngeal swallowing suspected to be WFL to continue regular, thin liquid diet.
QAB overall =7.64 concerning for a mild aphasia with expressive language deficits greater than receptive language deficits.
Mild hypophonia/hypokinetic dysarthria.
Recommend:
1. Regular, Thin
2. General aspiration and reflux precautions
3. Speech/language cognitive evaluation and tx at the acute care level and after D/C
[2025-01-06] MEDS: LIPITOR 40 MG PO (18:25)
[2025-01-06] MEDS: LOVENOX 40 MG SC (18:25)
--- NOTE | 2025-01-06 18:32 | PTCARENOTE ---
Resident doctor following patient made aware of patients blood pressure upon admission 192/113, no new orders. Son at bedside. Bed and chair alarm in place. NIH 3. Denies pain/discomfort. No attempts to ambulate without assistance. Call puente within
reach.
[2025-01-06] MEDS: MELATONIN 5 MG PO (21:04)
[2025-01-06] MEDS: NORVASC 5 MG PO (21:04)
[2025-01-06] MEDS: ORETIC 25 MG PO (21:05)
[2025-01-06] MEDS: ZESTRIL 10 MG PO (21:05)
[2025-01-07] VITALS (7 sets, daily range): BP systolic 135–171; BP diastolic 87–104; PULSE 85; O2SAT 93
[2025-01-07 06:39] LABS: Blood Urea Nitrogen 20 mg/dl (9-20); Calcium 10.9 mg/dl (8.4-10.2); Carbon Dioxide 30 mmol/L (22-30); Chloride 98 mmol/L (98-107); Estimated Creatinine Clearance 59 ml/min; Glucose 98 mg/dl (70-99); Potassium 4.3 mmol/L (3.5-5.1); Sodium 138 mmol/L (135-145); eGFR > 60.00
[2025-01-07] MEDS: VITAMIN B-12 1000 MCG PO (08:17)
[2025-01-07] MEDS: ORETIC 25 MG PO ×2 (08:17→20:33)
[2025-01-07] MEDS: NORVASC 5 MG PO ×2 (08:17→20:32)
[2025-01-07] MEDS: LOW STRENGTH ASPIRIN 81 MG PO (08:17)
[2025-01-07] MEDS: ZESTRIL 10 MG PO ×2 (08:17→20:33)
--- NOTE | 2025-01-07 09:20 | W.PN.NEURO.1 ---
Addendum entered and electronically signed by Leonardo Og MD 01/08/25 13:46:
NAD, sitting in bedside chair
Scleral Anicteric
MMM
No JVD
CTABL
RRR, S1/S2
Soft, NT, ND, BS+
Warm, Dry
AAOx3
Calm
Uncontrolled hypertension
Now improved
Received lisinopril hydrochlorothiazide and Norvasc
-Developed SAMIR
-Hydrochlorothiazide discontinued
-Lisinopril dosing reduced
CVA
-ASA and Statin
?Parkinson
-Neuro started Sinemet
SAMIR
-Can expect a 30 to 40% increase in renal function started on CATHLEEN inhibitor/HCTZ
-Renal bladder ultrasound with Doppler
-Avoid nephrotoxins hypotension
-Monitor urinary output
-IV fluids
Hypercalcemia
-IV fluids
-Vitamin D level
-Pending PTH
B12 insufficiency
-Continue B12 supplementation
Dispo: [facility] once renal function stable
Original Note:
Today's Communication / Plan
-
.
Subjective/Objective
Subjective Data
Date of Service: January 07, 2025
Neurology follow-up note
Mr. Rosas reports no complaints. He continues to be hypertensive. No reports of headaches, change in vision or strength. Continues to have right hand and arm resting tremor.
He denies headache, change in vision or strength.
Brain MRI is pending
Labs: Vitamin B12�249, TSH�normal
CT head wo contrast-generalized atrophy, left MCA territory hypodensity
CTA head and neck�no hemodynamically significant stenosis
PMH: No prior medical care
PSH: Lumbar laminectomy
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
FH: DM
All:NKDA
ROS: Negative for headache, change in vision, positive for resting right hand tremor. Negative for hallucinations
General: Well developed. In no acute distress.
Cardio: Regular rate and rhythm without murmur. Extremities are without cyanosis or edema.
Neuro:
Mental Status: Alert, oriented to self, person. Nonfluent expressive aphasia (stable). Follows simple requests consistently.
Cranial Nerves: Pupils are equally round and reactive to light. EOMs full. Visual nielson full to confrontation. No ptosis. No nystagmus. V1-V3 intact to light touch and pinprick bilaterally, symmetric. Face symmetric. Normal hearing AU. The
palate elevated well. SCMs and traps 5/5. Tongue midline. No dysarthria.
Motor: Normal bulk and tone. No pronator or arm drift. Strength 5/5 throughout. No clonus.
Reflexes: 2+ throughout the upper extremities and 3+ knees. Plantar responses flexor bilaterally.
Sensory: Limited exam due to aphasia
Coordination: Intermittent right hand resting tremor. No dysmetria
Gait: deferred
Assessment and Plan:
I. Parkinsonism, likely vascular
II. Progressive nonfluent aphasia.
III. Hypertensive urgency
IV. Left MCA territory hypodensity. Subacute versus chronic infarct
V. Vitamin B12 insufficiency
-Continue Telemetry monitoring
-Continue ASA 81 mg QD
Continue cyanocobalamin 1000 mcg once a day
-Will follow-up brain MRI result
-DVT prophylaxis.
I personally reviewed all radiology and labs along with past medical records pertinent to current medical problems. Total time spent in patient care is 35 minutes.
Thank you for allowing us to participate in the care of this patient. We will continue to follow. Please do not hesitate to contact us with any questions or concerns
Objective Data
Vital Signs
Temp Pulse Resp BP Pulse Ox
36.4 C 82 16 160/103 97
01/07/25 07:33 01/07/25 08:17 01/07/25 07:33 01/07/25 08:17 01/07/25 07:33
Lab Results
01/06/25 03:22
01/07/25 05:33
PT 13.9 Sec (11.4-14.6) 01/05/25 20:06
INR 1.04 01/05/25 20:06
APTT 30.9 Sec (23.4-35.0) 01/05/25 20:06
Sodium 138 mmol/L (135-145) 01/07/25 05:33
Potassium 4.3 mmol/L (3.5-5.1) 01/07/25 05:33
BUN 20 mg/dl (9-20) 01/07/25 05:33
Glucose 98 mg/dl (70-99) 01/07/25 05:33
Calcium 10.9 mg/dl (8.4-10.2) H 01/07/25 05:33
Phosphorus 4.4 mg/dl (2.5-4.5) 01/05/25 12:11
Bro-N-Ygdujurioyg Pept 441 pg/ml 01/06/25 03:22
LDL Cholesterol, Calc 167 mg/dl 01/06/25 03:22
Vitamin B12 262 pg/ml (239-931) 01/06/25 03:22
Patient Allergies
No Known Allergies Allergy (Unverified 01/05/25 12:02)
Vital Signs and Labs
-
Vital Signs and Labs:
Vital Signs
Temp Pulse Resp BP Pulse Ox
36.4 C 82 16 160/103 97
01/07/25 07:33 01/07/25 08:17 01/07/25 07:33 01/07/25 08:17 01/07/25 07:33
Lab Results
01/06/25 03:22
01/07/25 05:33
PT 13.9 Sec (11.4-14.6) 01/05/25 20:06
INR 1.04 01/05/25 20:06
APTT 30.9 Sec (23.4-35.0) 01/05/25 20:06
Sodium 138 mmol/L (135-145) 01/07/25 05:33
Potassium 4.3 mmol/L (3.5-5.1) 01/07/25 05:33
BUN 20 mg/dl (9-20) 01/07/25 05:33
Glucose 98 mg/dl (70-99) 01/07/25 05:33
Calcium 10.9 mg/dl (8.4-10.2) H 01/07/25 05:33
Phosphorus 4.4 mg/dl (2.5-4.5) 01/05/25 12:11
Bde-A-Adoqynyyoyl Pept 441 pg/ml 01/06/25 03:22
LDL Cholesterol, Calc 167 mg/dl 01/06/25 03:22
Vitamin B12 262 pg/ml (239-931) 01/06/25 03:22
Medications
-
Medications:
Generic Name Dose Route Start Last Admin
Trade Name Freq PRN Reason Stop Dose Admin
Acetaminophen 650 mg 01/05/25 19:33
Acetaminophen 325 Mg Tablet PO 02/02/25 19:32
Q4HPRN PRN
ROSALES, mild pain, or temp >100.4F
Amlodipine Besylate 5 mg 01/06/25 20:00 01/07/25 08:17
Amlodipine 5 Mg Tablet PO 02/03/25 19:59 5 mg
BID MARTIN Administration
Aspirin 81 mg 01/05/25 17:00 01/07/25 08:17
Aspirin 81 Mg Chewable Tablet PO 02/02/25 16:59 81 mg
DAILY MARTIN Administration
Atorvastatin Calcium 40 mg 01/05/25 19:33 01/06/25 18:25
Atorvastatin (Lipitor) 40 Mg Tablet PO 02/02/25 19:32 40 mg
QPM MARTIN Administration
Cyanocobalamin 1,000 mcg 01/06/25 13:00 01/07/25 08:17
Cyanocobalamin 1,000 Mcg Tablet PO 02/03/25 12:59 1,000 mcg
DAILY MARTIN Administration
Enoxaparin Sodium 40 mg 01/05/25 20:00 01/06/25 18:25
Enoxaparin Sodium 40 Mg/0.4 Ml Syringe SC 02/02/25 19:59 40 mg
QPM MARTIN Administration
Hydralazine HCl 10 mg 01/06/25 18:36
Hydralazine 20 Mg/Ml Vial IV 02/03/25 18:35
Q4HPRN PRN
ONLY for SBP >200
Hydrochlorothiazide 25 mg 01/06/25 20:00 01/07/25 08:17
Hydrochlorothiazide 25 Mg Tablet PO 02/03/25 19:59 25 mg
BID MARTIN Administration
Lisinopril 10 mg 01/06/25 20:00 01/07/25 08:17
Lisinopril 10 Mg Tablet PO 02/03/25 19:59 10 mg
BID MARTIN Administration
Melatonin 5 mg 01/05/25 22:00 01/06/25 21:04
Melatonin 5 Mg Tablet PO 02/02/25 21:59 5 mg
HS MARTIN Administration
Sodium Chloride 0 flush 01/05/25 20:00
Sodium Chloride 0.9% (Flush) Syringe IV 02/02/25 19:59
PER PROTOCOL MARTIN
Home Medications
-
Home Medications
naproxen 220 mg-diphenhydramine 25 mg tablet (Aleve PM) 2 tab PO HS 01/05/25
naproxen sodium 220 mg tablet (Aleve) 440 mg PO BIDPRN PRN mild pain 01/05/25
--- NOTE | 2025-01-07 11:24 | W.PN.HOSP.TC ---
Addendum entered and electronically signed by Leonardo Og MD 01/07/25 15:21:
continue antihyeprtensives
pt rec snf, he is agreeable
outpt neuro follow up
will encourage fluid intake for the hypercalcemia
-check ionized, vit d and pth tomorrow AM
Original Note:
Today's Communication/Plan
-
* MR today.
* Continue antihypertensives.
* SBP goal >140-160.
* Pending SNF placement.
Assessment / Plan
Assessment / Plan
Assessment
Michael Rosas, 64-year-old male, who has not seen a physician in years is brought in by his sons for at least a year of expressive aphasia, worsening tremors, balancing and gait issues, recurrent falls and progressive cognitive decline. In the ED, he
was found to have blood pressure in 250s/110s and was given hydralazine PO. CT head consistent with acute/subacute CVA. Neurology saw in the ED; no indication for TNK. He is also a smoker and has complained of occasional abdominal pain generalized
for the past few years.
Impression and plan
Hypertensive emergency
- Status-post hydralazine 20 mg PO in ED, and nicardipine drip in the ICU.
- Continue hydrochlorothiazide, lisinopril and amlodipine; can augment dosing based on renal function.
- Goal SBP of >140-160.
- Suspect hypertension has been a chronic issue, and anticipate requiring a multi-drug regimen.
- Echocardiogram and abdominal aorta ultrasound today.
- Transfer to telemetry.
- Will be establishing with me at our residency practice.
Subacute/chronic cerebrovascular accident
Expressive aphasia, likely secondary to above
- Neurology saw him in the ED.
- Continue aspirin and high-intensity statin indefinitely.
- MR without contrast today.
- TSH normal, LDL 167 (not at goal of <70).
- SNF for rehab; pending placement.
Elevated ejection fraction
Stage I diastolic dysfunction
- Would recommend a repeat echocardiogram as outpatient eventually.
- Discuss with primary.
Suspected Parkinsonian disorder
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
- Needs further outpatient evaluation.
- Likely responsible for increased falls of late.
- SNF for rehab; pending placement.
- Will need pharmacotherapy, and neurology consultation as outpatient.
B12 deficiency
- Replete with 1000 mg PO daily for now.
Tobacco use disorder
- Affects all aspects of health.
- Nicotine patch if needed.
Chronic back pain
- Analgesia as needed.
Thromboprophylaxis
- Enoxaparin.
Code status
- Full code.
- Medical POA: Kamaljit (son).
Anticipated Discharge: 24 - 48 hours
Subjective/Interval History
-
Date of Service: January 07, 2025
Stable overnight.
Objective Data
-
Labs:
Laboratory Results
01/07/25
05:33
Sodium 138
Potassium 4.3
Chloride 98
Carbon Dioxide 30
BUN 20
Creatinine 1.0
Glucose 98
Calcium 10.9 H
Vital Signs:
Vital Signs
Temp Pulse Resp BP Pulse Ox
98.4 F 86 14 167/104 99
01/07/25 10:35 01/07/25 10:35 01/07/25 10:35 01/07/25 10:35 01/07/25 10:35
I&O
01/06/25 01/07/25 01/08/25
06:59 06:59 06:59
Intake Total 612.5 / 612.5 250 / 250
Output Total 1850 / 1850 625 / 625
Balance -1237.5 / -1237.5 -375 / -375
Review of Systems
-
History Source: Patient
Constitutional: Reports No Symptoms
EENT: Reports No Symptoms Reported
Respiratory: Reports No Symptoms
Cardiac: Reports No Symptoms
Abdomen/GI: Reports No Symptoms
Genitourinary: Reports No Symptoms
Musculoskeletal: Reports No Symptoms
Skin: Reports No Symptoms
Neuro: Reports No Symptoms
Endocrine: Reports No Symptoms
Hematologic / Lymphatic: Reports No Symptoms
Allergy / Immunology: Reports No Symptoms
Physical Exam
-
General: No Apparent Distress and Comfortable
HEENT: Normocephalic, Atraumatic, Moist Mucous Membranes, Anicteric and No Ptosis
Respiratory: Clear to Auscultation and Non Labored Respirations
Cardiac: Regular Rhythm and S1/S2
GI: Soft, Nontender, Nondistended and No Hepatosplenomegaly
Genito-urinary: No Costovertebral Tender
Musculoskeletal: No Clubbing, No Cyanosis and No Edema
Skin: Warm, Dry and IV Access / Catheter Site
Neuro: Awake, Alert, Oriented, No Motor Deficits and No Sensory Deficits
Hematologic / Lymphatic: No Lymphadenopathy
Psych: Calm
[2025-01-07] MEDS: SINEMET 25-100 0.5 TABLET PO ×2 (16:53→20:34)
[2025-01-07] MEDS: LOVENOX 40 MG SC (16:53)
[2025-01-07] MEDS: LIPITOR 40 MG PO (16:53)
[2025-01-07] MEDS: MELATONIN 5 MG PO (20:34)
[2025-01-08] VITALS (7 sets, daily range): BP systolic 113–138; BP diastolic 65–99; PULSE 71; O2SAT 96
[2025-01-08 05:38] LABS: Ionized Calcium 1.22 mMOL/L (1.15-1.33)
[2025-01-08 06:42] LABS: Blood Urea Nitrogen 36 mg/dl (9-20); Calcium 10.7 mg/dl (8.4-10.2); Carbon Dioxide 30 mmol/L (22-30); Chloride 98 mmol/L (98-107); Estimated Creatinine Clearance 42 ml/min; Glucose 100 mg/dl (70-99); Potassium 3.8 mmol/L (3.5-5.1); Sodium 137 mmol/L (135-145); eGFR 55.78
[2025-01-08 06:58] LABS: Vitamin D, 25-OH*** 14.9 ng/mL (30-80)
[2025-01-08] MEDS: SINEMET 25-100 0.5 TABLET PO ×3 (07:59→21:11)
[2025-01-08] MEDS: VITAMIN B-12 1000 MCG PO (07:59)
[2025-01-08] MEDS: NORVASC 5 MG PO ×2 (07:59→19:53)
[2025-01-08] MEDS: LOW STRENGTH ASPIRIN 81 MG PO (07:59)
[2025-01-08] MEDS: ORETIC 25 MG PO (07:59)
[2025-01-08] MEDS: ZESTRIL PO ×2 (08:04→19:53)
[2025-01-08] MEDS: NSS 1000 IV (10:15)
--- NOTE | 2025-01-08 11:54 | W.PN.HOSP.TC ---
Addendum entered and electronically signed by Leonardo Og MD 01/08/25 13:48:
NAD, sitting in bedside chair
Scleral Anicteric
MMM
No JVD
CTABL
RRR, S1/S2
Soft, NT, ND, BS+
Warm, Dry
AAOx3
Calm
Uncontrolled hypertension
Now improved
Received lisinopril hydrochlorothiazide and Norvasc
-Developed SAMIR
-Hydrochlorothiazide discontinued
-Lisinopril dosing reduced
CVA
-ASA and Statin
?Parkinson
-Neuro started sinemet
SAMIR
-Can expect a 30 to 40% increase in renal function started on CATHLEEN inhibitor/HCTZ
-Renal bladder ultrasound with Doppler
-Avoid nephrotoxins hypotension
-Monitor urinary output
-IV fluids
Hypercalcemia
-IV fluids
-Vitamin D level
-Pending PTH
B12 insufficiency
-Continue B12 supplemenation
Dispo: [facility] once renal function stable
Original Note:
Today's Communication/Plan
-
* US renal artery.
* Encourage oral hydration.
* Stop HCTZ; reduce lisinopril.
* Pending placement.
Assessment / Plan
Assessment / Plan
Assessment
Michael Rosas, 64-year-old male, who has not seen a physician in years is brought in by his sons for at least a year of expressive aphasia, worsening tremors, balancing and gait issues, recurrent falls and progressive cognitive decline. In the ED, he
was found to have blood pressure in 250s/110s and was given hydralazine PO. CT head consistent with acute/subacute CVA. Neurology saw in the ED; no indication for TNK. He is also a smoker and has complained of occasional abdominal pain generalized
for the past few years.
Impression and plan
Hypertensive emergency
- Status-post hydralazine 20 mg PO in ED, and nicardipine drip in the ICU.
- Continue lisinopril and amlodipine; stop hydrochlorothiazide per below.
- Goal SBP of <140-160.
- Suspect hypertension has been a chronic issue, and anticipate requiring a multi-drug regimen.
- Echocardiogram and abdominal aorta ultrasound today.
- Monitor on telemetry.
- Will be establishing with me at our residency practice.
Subacute/chronic cerebrovascular accident
Expressive aphasia, likely secondary to above
- Neurology saw him in the ED.
- Continue aspirin and high-intensity statin indefinitely.
- MR without contrast today.
- TSH normal, LDL 167 (not at goal of <70).
- Acute rehab vs. SNF for rehab; pending placement.
Acute kidney injury
- Some amount of worsening of renal function is expected with initiation of CATHLEEN/ARB (up-to 30%, and that is over the first few days-a couple of weeks).
- The acute bump can possibly be from high-dose initiation (especially with concomitant HCTZ), ATN from relative hypotension (a combination of both), and less likely from an anatomical issue.
- Will check a renal artery US.
- Reduce lisinopril dosing to 5 mg; discontinue hydrochlorothiazide.
- Encourage oral hydration; gentle IV hydration with 1 bag NSS.
- Follow BMP.
Elevated ejection fraction
Stage I diastolic dysfunction
- Would recommend a repeat echocardiogram as outpatient eventually.
- Discuss with primary.
Suspected Parkinsonian disorder
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
- Needs further outpatient evaluation.
- Likely responsible for increased falls of late.
- SNF for rehab; pending placement.
- Will need pharmacotherapy, and neurology consultation as outpatient.
B12 deficiency
- Replete with 1000 mg PO daily for now.
Tobacco use disorder
- Affects all aspects of health.
- Nicotine patch if needed.
Chronic back pain
- Analgesia as needed.
Thromboprophylaxis
- Enoxaparin.
Code status
- Full code.
- Medical POA: Kamaljit (son).
Anticipated Discharge: Within 24 hours
Subjective/Interval History
-
Date of Service: January 08, 2025
No complaints overnight. Doing well.
Objective Data
-
Labs:
Laboratory Results
01/08/25 01/08/25
05:23 16:00
Sodium 137 Cancelled
Potassium 3.8 Cancelled
Chloride 98 Cancelled
Carbon Dioxide 30 Cancelled
BUN 36 H Cancelled
Creatinine 1.4 H Cancelled
Glucose 100 H Cancelled
Calcium 10.7 H Cancelled
Vital Signs:
Vital Signs
Temp Pulse Resp BP Pulse Ox
98 F 73 14 113/65 97
01/08/25 11:05 01/08/25 11:05 01/08/25 11:05 01/08/25 11:05 01/08/25 11:05
I&O
01/07/25 01/08/25 01/09/25
06:59 06:59 06:59
Intake Total 250 / 250 1020 / 1020
Output Total 625 / 625 450 / 450
Balance -375 / -375 570 / 570
Review of Systems
-
History Source: Patient
Constitutional: Reports No Symptoms
EENT: Reports No Symptoms Reported
Respiratory: Reports No Symptoms
Cardiac: Reports No Symptoms
Abdomen/GI: Reports No Symptoms
Genitourinary: Reports No Symptoms
Musculoskeletal: Reports No Symptoms
Skin: Reports No Symptoms
Neuro: Reports No Symptoms
Endocrine: Reports No Symptoms
Hematologic / Lymphatic: Reports No Symptoms
Allergy / Immunology: Reports No Symptoms
Physical Exam
-
General: No Apparent Distress and Comfortable
HEENT: Normocephalic, Atraumatic, Moist Mucous Membranes, Anicteric and No Ptosis
Respiratory: Clear to Auscultation and Non Labored Respirations
Cardiac: Regular Rhythm and S1/S2
GI: Soft, Nontender, Nondistended and No Hepatosplenomegaly
Genito-urinary: No Costovertebral Tender
Musculoskeletal: No Clubbing, No Cyanosis and No Edema
Skin: Warm, Dry and IV Access / Catheter Site
Neuro: Awake, Alert, Oriented, No Motor Deficits and No Sensory Deficits
Hematologic / Lymphatic: No Lymphadenopathy
Psych: Calm
--- NOTE | 2025-01-08 12:10 | PTOTSP ---
Speech Therapy Cognitive Screen:
Given acute/subacute CVA with progressive cognitive decline, the SLUMS was administered. Pt earned an adjusted score of 5/24, indicative of significant cognitive deficits per parameters of this assessment. Of note, 2 subtests of SLUMS not
administered d/t pt inability to write. He demonstrated deficits in orientation, mathematical problem solving, verbal fluency, STM, digit recall reverse order (working memory), and story recall.
Pt would benefit from ongoing services at acute care level and following d/c to target functional cognitive skills given level of independence [employer]UE[employer]PECT[employer].
--- NOTE | 2025-01-08 13:17 | W.PN.NEURO.1 ---
Today's Communication / Plan
-
.
Subjective/Objective
Subjective Data
Date of Service: January 08, 2025
Neurology follow-up note
Mr. Rosas believes that his right hand tremor is slightly better following initiation of Sinemet. No reports of nausea.
Brain MRI�moderate to severe T2/FLAIR white matter hyperintensities, advanced for the patient's age. No evidence of acute infarcts.
PMH: No prior medical care
PSH: Lumbar laminectomy
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
FH: DM
All:NKDA
ROS: Negative for headache, change in vision, positive for resting right hand tremor. Negative for hallucinations
General: Well developed. In no acute distress.
Cardio: Regular rate and rhythm without murmur. Extremities are without cyanosis or edema.
Neuro:
Mental Status: Alert, oriented to self, person. Nonfluent expressive aphasia (stable). Follows simple requests consistently.
Cranial Nerves: Pupils are equally round and reactive to light. EOMs full. Visual nielson full to confrontation. No ptosis. No nystagmus. V1-V3 intact to light touch and pinprick bilaterally, symmetric. Face symmetric. Normal hearing AU. The
palate elevated well. SCMs and traps 5/5. Tongue midline. No dysarthria.
Motor: Normal bulk and tone. No pronator or arm drift. Strength 5/5 throughout. No clonus.
Reflexes: 2+ throughout the upper extremities and 3+ knees. Plantar responses flexor bilaterally.
Sensory: Limited exam due to aphasia
Coordination: Intermittent right hand resting tremor. No dysmetria
Gait: deferred
Assessment and Plan:
I. Parkinsonism/encephalopathy. LBD?
II. Multifactorial encephalopathy (vascular, neurodegenerative)
III. Vitamin B12 insufficiency
IV. Cervical DJD
-Continue Telemetry monitoring
-Continue ASA 81 mg QD
-Titrate Sinemet to 1 tablet 3 times a day in 2-3 days
-Continue cyanocobalamin 1000 mcg once a day
-Will follow-up brain MRI result
-Outpatient neurology follow-up
-Please recall neurology services any questions or concerns
I personally reviewed all radiology and labs along with past medical records pertinent to current medical problems. Total time spent in patient care is 35 minutes.
Thank you for allowing us to participate in the care of this patient. We will continue to follow. Please do not hesitate to contact us with any questions or concerns
Objective Data
Vital Signs
Temp Pulse Resp BP Pulse Ox
36.6 C 73 14 113/65 97
01/08/25 11:05 01/08/25 11:05 01/08/25 11:05 01/08/25 11:05 01/08/25 11:05
Lab Results
01/06/25 03:22
01/08/25 16:00
PT 13.9 Sec (11.4-14.6) 01/05/25 20:06
INR 1.04 01/05/25 20:06
APTT 30.9 Sec (23.4-35.0) 01/05/25 20:06
Sodium Cancelled 01/08/25 16:00
Potassium Cancelled 01/08/25 16:00
BUN Cancelled 01/08/25 16:00
Glucose Cancelled 01/08/25 16:00
Calcium Cancelled 01/08/25 16:00
Phosphorus 4.4 mg/dl (2.5-4.5) 01/05/25 12:11
Xzj-A-Uskosctsure Pept 441 pg/ml 01/06/25 03:22
LDL Cholesterol, Calc 167 mg/dl 01/06/25 03:22
Vitamin B12 262 pg/ml (239-931) 01/06/25 03:22
Patient Allergies
No Known Allergies Allergy (Unverified 01/05/25 12:02)
Vital Signs and Labs
-
Vital Signs and Labs:
Vital Signs
Temp Pulse Resp BP Pulse Ox
36.6 C 73 14 113/65 97
01/08/25 11:05 01/08/25 11:05 01/08/25 11:05 01/08/25 11:05 01/08/25 11:05
Lab Results
01/06/25 03:22
01/08/25 16:00
PT 13.9 Sec (11.4-14.6) 01/05/25 20:06
INR 1.04 01/05/25 20:06
APTT 30.9 Sec (23.4-35.0) 01/05/25 20:06
Sodium Cancelled 01/08/25 16:00
Potassium Cancelled 01/08/25 16:00
BUN Cancelled 01/08/25 16:00
Glucose Cancelled 01/08/25 16:00
Calcium Cancelled 01/08/25 16:00
Phosphorus 4.4 mg/dl (2.5-4.5) 01/05/25 12:11
Ydi-C-Uodnqjgzaim Pept 441 pg/ml 01/06/25 03:22
LDL Cholesterol, Calc 167 mg/dl 01/06/25 03:22
Vitamin B12 262 pg/ml (239-931) 01/06/25 03:22
Medications
-
Medications:
Generic Name Dose Route Start Last Admin
Trade Name Freq PRN Reason Stop Dose Admin
Acetaminophen 650 mg 01/05/25 19:33
Acetaminophen 325 Mg Tablet PO 02/02/25 19:32
Q4HPRN PRN
ROSALES, mild pain, or temp >100.4F
Amlodipine Besylate 5 mg 01/06/25 20:00 01/08/25 07:59
Amlodipine 5 Mg Tablet PO 02/03/25 19:59 5 mg
BID MARTIN Administration
Aspirin 81 mg 01/05/25 17:00 01/08/25 07:59
Aspirin 81 Mg Chewable Tablet PO 02/02/25 16:59 81 mg
DAILY MARTIN Administration
Atorvastatin Calcium 40 mg 01/05/25 19:33 01/07/25 16:53
Atorvastatin (Lipitor) 40 Mg Tablet PO 02/02/25 19:32 40 mg
QPM MARTIN Administration
Carbidopa/Levodopa 0.5 tablet 01/07/25 16:00 01/08/25 07:59
Carbidopa (25 Mg)/Levodopa (100 Mg) Regular Release Tablet PO 02/04/25 15:59 0.5 tablet
TID MARTIN Administration
Cyanocobalamin 1,000 mcg 01/06/25 13:00 01/08/25 07:59
Cyanocobalamin 1,000 Mcg Tablet PO 02/03/25 12:59 1,000 mcg
DAILY MARTIN Administration
Enoxaparin Sodium 40 mg 01/05/25 20:00 01/07/25 16:53
Enoxaparin Sodium 40 Mg/0.4 Ml Syringe SC 02/02/25 19:59 40 mg
QPM MARTIN Administration
Hydralazine HCl 10 mg 01/06/25 18:36
Hydralazine 20 Mg/Ml Vial IV 02/03/25 18:35
Q4HPRN PRN
ONLY for SBP >200
Sodium Chloride 1,000 mls @ 80 mls/hr 01/08/25 08:15 01/08/25 10:15
Nss IV 01/08/25 20:20 1,000 mls
[id number] MARTIN Administration
Lisinopril 5 mg 01/08/25 11:27
Lisinopril 10 Mg Tablet PO 02/03/25 19:59
BID MARTIN
Melatonin 5 mg 01/05/25 22:00 01/07/25 20:34
Melatonin 5 Mg Tablet PO 02/02/25 21:59 5 mg
HS MARTIN Administration
Sodium Chloride 0 flush 01/05/25 20:00
Sodium Chloride 0.9% (Flush) Syringe IV 02/02/25 19:59
PER PROTOCOL MARTIN
Home Medications
-
Home Medications
naproxen 220 mg-diphenhydramine 25 mg tablet (Aleve PM) 2 tab PO HS sleep 01/05/25
naproxen sodium 220 mg tablet (Aleve) 440 mg PO BIDPRN PRN mild pain 01/05/25
--- NOTE | 2025-01-08 15:53 | CM ---
Rosangela Pa can accept at [facility] Sat if medically stable.
amalia pa rep [phone].
[facility]
report [phone]
fax [phone] [facility]
[2025-01-08] MEDS: LOVENOX 40 MG SC (17:07)
[2025-01-08] MEDS: LIPITOR 40 MG PO (17:07)
[2025-01-08] MEDS: MELATONIN 5 MG PO (21:11)
[2025-01-09 07:25] LABS: Hematocrit 44.8 % (39.0-52.0); Hemoglobin 15.6 g/dL (13.0-18.0); Mean Corp Hgb Conc. 34.8 g/dL (33.0-37.0); Mean Corpuscular Hgb 29.7 pg (27.0-31.0); Mean Corpuscular Volume 85.2 fL (80.0-94.0); Platelet Count 280 10^3/uL (130-400); Red Blood Cell Count 5.26 10^6/uL (4.70-6.10); Red Cell Dist. Width 14.9 % (11.5-14.5); White Blood Cell Count 6.6 10^3/uL (4.8-10.8)
[2025-01-09 07:40] LABS: Blood Urea Nitrogen 38 mg/dl (9-20); Calcium 10.7 mg/dl (8.4-10.2); Carbon Dioxide 28 mmol/L (22-30); Chloride 99 mmol/L (98-107); Estimated Creatinine Clearance 54 ml/min; Glucose 91 mg/dl (70-99); Potassium 4.2 mmol/L (3.5-5.1); Sodium 138 mmol/L (135-145); eGFR > 60.00
[2025-01-09 07:48] VITALS: BP 118/80
[2025-01-09] MEDS: LOW STRENGTH ASPIRIN 81 MG PO (08:20)
[2025-01-09] MEDS: SINEMET 25-100 0.5 TABLET PO (08:20)
[2025-01-09] MEDS: VITAMIN B-12 1000 MCG PO (08:21)
[2025-01-09] MEDS: NORVASC 5 MG PO (08:21)
[2025-01-09] MEDS: ZESTRIL 5 MG PO (08:21)
[2025-01-09 09:14] LABS: Intact PTH 12.9 pg/ml (13.6-85.8)
--- NOTE | 2025-01-09 09:30 | CM ---
Per attening pt is med stable for dc.
Spoke with [facility] ph # [phone], OK to accept today. REPORT # is [phone].
Transport requested for 1pm pick out hand.
Nursing aware. Spoke with Kd Mari on phone, aware and in agreement.
Discharge dispo: [facility] at 1pm today.
--- NOTE | 2025-01-09 11:15 | W.PN.HOSP.TC ---
Today's Communication/Plan
-
dc mos rehab
Assessment / Plan
Assessment / Plan
NAD, sitting in bedside chair
Scleral Anicteric
MMM
No JVD
CTABL
RRR, S1/S2
Soft, NT, ND, BS+
Warm, Dry
AAOx3
Calm
Uncontrolled hypertension
Now improved
Received lisinopril hydrochlorothiazide and Norvasc
-Developed SAMIR
-Hydrochlorothiazide discontinued
-Lisinopril dosing reduced
CVA
-ASA and Statin
?Parkinson
-Neuro started sinemet
SAMIR, at baseline
-Can expect a 30 to 40% increase in renal function started on CATHLEEN inhibitor/HCTZ
-Renal bladder ultrasound with Doppler
-Avoid nephrotoxins hypotension
-Monitor urinary output
Hypercalcemia
-IV fluids
-Vitamin D level
-Pending PTH
B12 insufficiency
-Continue B12 supplementation
Dispo: [facility]
More than 30 minutes spent in discharge including
Final examination of the patient
Summarizing hospital stay
Instructions for continuing care to all relevant caregivers
Preparation of discharge records, prescriptions, and referral forms
Total time spent (in minutes):33mins
Anticipated Discharge: Today
Subjective/Interval History
-
Date of Service: January 09, 2025
Seen and examined. No new complaints. No acute overnight events.
Objective Data
-
Labs:
Laboratory Results
01/09/25
06:50
WBC 6.6
Hgb 15.6
Hct 44.8
Plt Count 280
Sodium 138
Potassium 4.2
Chloride 99
Carbon Dioxide 28
BUN 38 H
Creatinine 1.1
Glucose 91
Calcium 10.7 H
Vital Signs:
Vital Signs
Temp Pulse Resp BP Pulse Ox
97.6 F 69 22 118/80 99
01/09/25 07:48 01/09/25 07:48 01/09/25 07:48 01/09/25 07:48 01/09/25 07:48
I&O
01/08/25 01/09/25 01/10/25
06:59 06:59 06:59
Intake Total 1020 / 1020 1440 / 1440
Output Total 450 / 450 675 / 675
Balance 570 / 570 765 / 765
--- NOTE | 2025-01-09 11:24 | W.DCSUMMARY ---
Discharge Summary
Discharge Data
Date of Admission: 01/05/25
Date of Discharge: 01/09/25
-
Pending Results: No
Hospital Course
64 M with no pmhx
Presented with progressive cognitive decline and speech changes that has been ongoing of the last 2 years. Now found to have concerning finding on CT of acute/subacute CVA in the left frontoparietal lobe along with a blood pressure of >230.
Admitted to ICU started on a Cardene drip along with oral antihypertensives. Evaluated by neurology concerned that there could be a new onset of Parkinson's/Lewy body dementia therefore started on Sinemet. Additionally, neurology was concerned
about primary expressive aphasia and will need continued outpatient speech therapy. Was evaluated by physical therapy recommended ARU with DC to [facility].
Hospitalization was complicated by a slight bump in renal function however the day of discharge was 1.1 coming down to baseline after adjustments were made to antihypertensives and was provided with some IV fluids.
Discharge Plan
-
Patient Disposition: Acute Rehab Facility
Discharge Diagnosis/Procedures: Hypertensive crisis
Subacute CVA
Parkinson
Condition: Good
Diet: As tolerated
Activity: As tolerated
Driving Restrictions: No driving
Activity Restrictions/Additional Instructions:
Presented with progressive cognitive decline and speech changes that has been ongoing of the last 2 years. Now found to have concerning finding on CT of acute/subacute CVA in the left frontoparietal lobe along with a blood pressure of >230.
Admitted to ICU started on a Cardene drip along with oral antihypertensives. Evaluated by neurology concerned that there could be a new onset of Parkinson's/Lewy body dementia therefore started on Sinemet. Additionally, neurology was concerned
about primary expressive aphasia and will need continued outpatient speech therapy. Was evaluated by physical therapy recommended SNF.
Hospitalization was complicated by a slight bump in renal function however the day of discharge was 1.19 coming down to baseline after adjustments were made to antihypertensives and was provided with some IV fluids.
Referrals:
Andrés Taylor MD [Active] - in four to six weeks (To discuss lung cancer screening given significant tobacco smoking history; check full PFTs on day of office visit)
Di Arauz MD [Active] - in two weeks
NONE,* [Family Provider] -
Prescriptions:
New
atorvastatin 40 mg Tablet
40 mg PO QPM Qty: 30 0RF
cyanocobalamin (vitamin B-12) [Vitamin B-12] 1,000 mcg Tablet
1,000 mcg PO DAILY Qty: 30 0RF
amlodipine 5 mg Tablet
5 mg PO BID Qty: 30 0RF
lisinopril 10 mg Tablet
5 mg PO BID Qty: 60 0RF
aspirin 81 mg Tablet,Chewable
81 mg PO DAILY Qty: 30 0RF
carbidopa-levodopa 25-100 mg Tablet
0.5 tab PO TID Qty: 90 0RF
melatonin 5 mg Tablet
5 mg PO HS Qty: 30 0RF
Discontinued
naproxen sodium [Aleve] 220 mg Tablet
440 mg PO BIDPRN PRN (Reason: mild pain)
Aleve PM 220-25 mg Tablet
2 tab PO HS
Discharge Orders:
Discharge Patient (As Directed); Ordered 01/09/25
Ordered By: Leonardo Og
Discharge Date and Time
Print Language: BANGLADESHI
[2025-01-09 12:30] VITALS: BP 126/74
[2025-01-09 12:58] VITALS: BP 136/74
== END 2025-01-09 13:18 | DRG 56 ==
LOC: 3 WEST ACU 17:29
PROVIDERS: Emergency Medicine; Student in an Organized Health Care Education/Training Program; ADMITTING PHYSICIAN Hospitalist; CONSULT PHYSICIAN Internal Medicine Critical Care Medicine; CONSULT PHYSICIAN Psychiatry & Neurology Neurology; EMERGENCY PHYSICIAN Emergency Medicine
DX: G21.4 Vascular parkinsonism (principal); I63.512 Cerebral infarction due to unspecified occlusion or stenosis of left middle cerebral artery; I16.1 Hypertensive emergency; N17.9 Acute kidney failure, unspecified; R47.01 Aphasia; I10 Essential (primary) hypertension; G89.29 Other chronic pain; E78.00 Pure hypercholesterolemia, unspecified; E83.52 Hypercalcemia; E53.8 Deficiency of other specified B group vitamins; R62.7 Adult failure to thrive; L21.9 Seborrheic dermatitis, unspecified; F17.200 Nicotine dependence, unspecified, uncomplicated; Z79.82 Long term (current) use of aspirin
CPT/HCPCS: 70450; 70496; 70498; 70551; 71045; 76770; 80048; 80053; 80061; 81003; 82306; 82330; 82570; 82607; 82746; 82962; 83036; 83735; 83880; 83970; 84100; 84156; 84443; 85025; 85027; 85610; 85730; 92507; 92523; 92610; 93005; 93306; 93975; 97116; 97163; 97167; 97535; 99291; Q9967

== ENCOUNTER 2025-06-25 12:41 | Inpatient (IN) | payer MEDICARE, SELFPAY ==
[2025-06-25] VITALS (9 sets, daily range): BP systolic 94–128; BP diastolic 57–78; BMI 17.9; BMI 18.4
--- NOTE | 2025-06-25 10:12 | EDRN ---
Dr. Stanton in room w/pt at this time.
--- NOTE | 2025-06-25 10:13 | ED.GENMED ---
History of Present Illness
General
Chief Complaint: Failure to Thrive
Source: patient
Exam Limitations: none
Time Seen by Provider: 06/25/25 10:12
Nursing documentation reviewed up to this point in time: agreed with
History of Present Illness
History of Present Illness:
65-year-old male with a past medical history of hypertension, prior stroke with reportedly mild residual right-sided weakness and dysphagia, chronic back pain, concern for Parkinson's disease as well who presents to the ER with his son for
evaluation of increasing fatigue and failure to thrive. Patient had recent stroke and was in [facility] about 6 months ago and released home where he currently lives independently and is able to ambulate according to son and perform most of his
ADLs. Son does help with groceries and food. Son says that over the past few days patient has had very poor appetite�son says that he has brought him food every day but patient not eating. He has had increasing weakness and fatigue and son says
that he has had multiple minor falls. Fortunately no serious injuries�patient is insistent that he did not hit his head at any point and denies headache, neck pain, back pain, rib pain or pain in his extremities. He is on aspirin but no other
blood thinners. Son was concerned with worsening functional state and brought him to the ER for assessment. He has had a mild cough recently. Patient denies feeling short of breath. No recent fever noted. No vomiting or diarrhea noted. No
abdominal discomfort noted. No other acute complaints.
Past History
Past History
ED Past Medical History: None
ED Past Surgical History: Orthopedic (back) and Tonsilectomy
Social History
Tobacco: Former smoker
Alcohol: None
Drug: None
Living: alone
Employment: Retired
Review of Systems
Review of Systems
All Other Systems: ROS reviewed and negative except as documented in HPI and ROS
Constitutional: Reports fatigue; Denies fever
Respiratory: Reports cough; Denies trouble breathing
Cardiac: Denies chest pain
ABD/GI: Reports anorexia; Denies abdominal pain, nausea, vomiting or diarrhea
: Denies flank pain
Musculoskeletal: Denies neck pain or back pain
Neurological: Reports weakness (Generalized); Denies headache or numbness
Phy Exam
Physical Exam
Physical Exam:
General: Awake, alert, generally unkempt but not in distress
Head: Normocephalic, atraumatic
Eyes: Conjunctiva normal, pupils equal round and reactive to light bilaterally
Throat: Airway intact, handling secretions
Neck: Trachea midline, no cervical spine tenderness
Back: No signs of trauma the back or flank and no tenderness in the thoracic or lumbar spine
Lungs: Breath sounds somewhat diminished at the lung bases, low normal pulse ox 93%, respiratory rate 18-20
Heart: Tachycardia with regular rhythm, no murmurs, gallops, or rubs; no chest wall tenderness
Abd: Soft, non distended, nontender
Neuro: Speech is generally slow but no dysarthria noted, cranial nerves are grossly intact, motor and sensory appears symmetric throughout
Skin: Minor abrasion of the dorsum of the left hand but no other signs of acute trauma
Extremities: Minor abrasion to the dorsum of the hand but no tenderness in the area and rest of extremities are atraumatic, no pain on passive range of motion of all large joints of the arms and legs; no edema in extremities, equal pulses in all
extremities
Scores
Heart Failure Risk
Heart Failure Risk Score: Not Applicable
Heart Score for Chest Pain Patients
STEMI patient?: Not applicable
Withdrawal Assessment of Alcohol
Withdrawal Assessment Completed?: Not applicable
Sepsis
Sepsis Screening
Sepsis Assessment: Severe Sepsis
Sepsis Screening: Lactate >2mmol/L
Sepsis Screen
Sepsis Screen: Severe Sepsis
Date: 06/25/25
Time: 18:15
Course
Orders/Labs/Results
Orders:
Orders
06/25/25 10:13
Electrocardiogram (*1) Urgent
Reason for Study: Fatigue / Weakness
EKG- Treatment ONCE
06/25/25 10:19
0.9% Sodium Chloride 1000 ml [Nss] 1,000 ml IV BOLUS
06/25/25 10:20
CR Chest Portable - 1 View Urgent
Comment:
Reason For Exam: weakness, hypotension
Reason Study Needs to be Portable: Unable to Transport
06/25/25 10:36
COVID-19 Antigen Urgent
Source: Nasal Swab
CPK [Creatine Phosphokinase] Urgent
Complete Blood Count/With Diff Urgent
Comprehensive Metabolic Panel Urgent
Lactate Level [Lactic Acid] Urgent
Magnesium Urgent
PTT Urgent
Prothrombin Time Urgent
Serum Osmolality Urgent
Comment: ADD VON
TSH Reflex To Free T4 Urgent
Troponin I Urgent
Blood Culture Q30M
JONATHAN Source: Blood/Venous
Specimen Description:
Influenza A+B Rapid Molecular Urgent
JONATHAN Source: Nasal Swab
Specimen Description:
06/25/25 10:46
Blood Culture Q30M
JONATHAN Source: Blood/Venous
Specimen Description:
06/25/25 11:22
Piperacillin/Tazo 3.375 Gram [Zosyn] 3.375 gram in 50 ml IV NOW
06/25/25 11:30
0.9% Sodium Chloride 1000 ml [Nss] 1,000 ml IV 2,000 mls/hr
06/25/25 11:41
Doxycycline Hyclate [Vibramycin] 100 mg 0.9% Sodium Chloride 250 ml [Nss] 250 ml IV NOW
06/25/25 12:11
Urinalysis Reflex To Culture Urgent
Date Specimen was Collected: 06/25/25
Time Specimen was Collected: 12:05
Urine Microscopic Reflex Cult Urgent
06/25/25 12:12
Add On- LAB Routine
Tests Added?: serum osmolality
06/25/25 12:15
0.9% Sodium Chloride 1000 ml [Nss] 1,000 ml IV 75 mls/hr
06/25/25 12:18
Admit/Transfer Patient As Directed
Co-Sign Provider:
Level of Care: Inpatient admission
Assign to:: Telemetry
Physician / Group: cara kearns
Diagnosis: sepsis, PNA
Reason for Telemetry: Medication for Arrhythmia
Date to Stop Telemetry: 06/27/25
Time to Stop Telemetry: 11:00
Reason for Hospitalization: sepsis, PNA
Expected length of stay greater than two midnights?: Yes
ELOS- Estimated Length of Stay in days: 2
I certify the patient meets the requirements for IP care: Yes
PRN Pain Medication Management As Directed
May give lesser potent ordered pain med per pt: Yes
preference::
Protocol:: Medication orders for pain may be administered in a
manner that supports deferring to patient preference
when the pt is:
- Requesting an ordered lesser potent pain medication.
Least to most potent pain medications are defined
as: acetaminophen < NSAID < tramadol < opioids
(morphine, oxycodone, hydromorphone).
- Requesting a lesser dose of the same medication IF
ORDERED.
- Requesting a less intrusive route of administration
if both routes are prescribed by the provider (PO <
IV).
06/25/25 12:20
Code Status As Directed
Resuscitation Status: Do not resuscitate
Reached after discussion with pt or family/Healthcare POA: Yes
06/25/25 12:21
DNR Bracelet Application ONCE
06/25/25 13:42
Urine Creatinine Routine
Date Specimen was Collected: 06/25/25
Time Specimen was Collected: 13:39
Urine Osmolality Random [Osmolality, Random Urine] Routine
Date Specimen was Collected: 06/25/25
Time Specimen was Collected: 13:39
Urine Sodium Routine
Date Specimen was Collected: 06/25/25
Time Specimen was Collected: 13:39
Legionella Urinary Antigen Routine
JONATHAN Source: Urine
Specimen Description:
Strep pneumoniae Antigen Routine
JONATHAN Source: Urine
Specimen Description:
06/25/25 14:58
Acetaminophen [Tylenol] 650 mg PO Q6HPRN PRN
Ipratropium/Albuterol Sulfate [Duoneb] 3 ml INH R Q4HPRN PRN
Ondansetron Injectable [Zofran] 4 mg IV Q6HPRN PRN
Oxycodone [Roxicodone] 5 mg PO Q4HPRN PRN
06/25/25 14:58
EKG [Electrocardiogram (*1)] Routine
Reason for Study: Other
Other Reason for Exam: eleva trop
Respiratory Culture/Gram Stain Urgent
JONATHAN Source: Sputum
Specimen Description:
Activity As Directed
Activity Level: Out of Bed-Early Mobility
Intake/ Output As Directed
Frequency: Per unit guidelines
Vital Signs As Directed
Frequency: Per unit guidelines
Weight As Directed
Frequency: Once
Comment: on admission
Ot Eval And Treat Routine
Pt Eval And Treat Routine
Activity Level: Ambulate
Speech Therapy Eval & Treat Routine
DX Deep Vein Thrombosis Video Routine
06/25/25 16:00
Carbidopa/Levodopa [Sinemet 10-100] 1 tablet PO TID
06/25/25 16:15
Basic Metabolic Panel Routine
Lactic Acid Routine
Troponin I Routine
Vancomycin MRSA PCR Screen Routine
JONATHAN Source: Nose
Specimen Description:
06/25/25 18:00
Atorvastatin [Lipitor] 40 mg PO QPM
Enoxaparin Sodium [Lovenox] 40 mg SC QPM
Piperacillin/Tazo 3.375 Gram [Zosyn] 3.375 gram in 50 ml IV Q6H
06/25/25 20:00
Guaifenesin [Mucinex] 600 mg PO Q12
06/26/25 00:00
Doxycycline Hyclate [Vibramycin] 100 mg 0.9% Sodium Chloride 250 ml [Nss] 250 ml IV Q12H
06/26/25 06:00
B12 [Vitamin B12] IN AM
BMP [Basic Metabolic Panel] IN AM
Complete Blood Count/No Diff IN AM
Creatine Phosphokinase IN AM
Magnesium IN AM
Troponin I IN AM
06/27/25 06:00
Complete Blood Count/No Diff IN AM
Creatine Phosphokinase IN AM
06/27/25 11:00
DC Protocol for Telemetry ONCE
06/28/25 06:00
Complete Blood Count/No Diff IN AM
Creatine Phosphokinase IN AM
06/29/25 06:00
Creatine Phosphokinase IN AM
06/30/25 06:00
Creatine Phosphokinase IN AM
Abnormal Lab Results
06/25/25 06/25/25
10:36 12:11
WBC 21.0 H 10^3/uL
(4.8-10.8)
MCV 77.1 L fL
(80.0-94.0)
MCH 26.7 L pg
(27.0-31.0)
Plt Count 409 H 10^3/uL
(130-400)
Abs Immat Gran (auto) 0.1 H 10^3/uL
(0-0.05)
Absolute Neuts (auto) 19.6 H 10^3/uL
(1.4-6.5)
Absolute Lymphs (auto) 0.4 L 10^3/uL
(1.2-3.4)
Immature Gran % 0.6 H %
(0-0.5)
Neutrophils % 93.4 H %
(42.2-75.2)
Lymphocytes % 2.1 L %
(20.5-51.1)
PT 17.2 H Sec
(11.4-14.6)
APTT 36.5 H Sec
(23.4-35.0)
Sodium 128 L mmol/L
(135-145)
Chloride 94 L mmol/L
(98-107)
Glucose 168 H mg/dl
(70-99)
Serum Osmolality 274 L mOsm/kg
(275-300)
Lactic Acid 3.4 H mmol/L
(0.7-2.0)
AST 101 H U/L
(17-59)
Creatine Kinase 1473 H U/L
(55-170)
Troponin I 0.545 H* ng/ml
Ur Occult Blood Reflex 4+ A
(Negative)
Urine Albumin (Reflex) 2+ A
(Neg - Trace)
06/25/25 10:36
06/25/25 10:36
Vital Signs
Initial and Last Documented VS:
Initial Vital Signs
Temp Pulse Resp BP Pulse Ox
36.6 C 146 18 94/64 93
06/25/25 09:58 06/25/25 09:58 06/25/25 09:58 06/25/25 09:58 06/25/25 09:58
Last Documented Vital Signs
Temp Pulse Resp BP Pulse Ox
36.9 C 85 18 128/71 100
06/25/25 15:52 06/25/25 15:52 06/25/25 15:52 06/25/25 15:52 06/25/25 16:40
MDM/Problems Addressed
Differential Diagnosis Includes:
Wide differential diagnosis includes but not limited to: Dehydration, electrolyte derangement/uremia, anemia, bacterial infection including UTI or pneumonia, viral syndrome
MDM/Problems Addressed:
65-year-old male presents for evaluation of increasing weakness and poor p.o. intake over the past few days. Multiple falls but no serious injuries. Mildly hypotensive blood pressure 94/64, tachycardic heart rate 140s, low normal pulse ox 93% on
room air, no fever, no significant tachypnea or respiratory distress. Physical exam is as noted. Patient brought to room and placed on quality assurance monitor final. Will obtain EKG. Check labs including a CBC and a CMP, lactate and blood cultures, thyroid
studies, coags. Will check urinalysis. Check viral swabs. Will check a chest x-ray. No significant injuries on trauma survey�no indication for emergent trauma imaging. Will provide IV fluid resuscitation. Monitor very closely and plan likely
for admission pending initial assessment and resuscitation.
Labs reviewed: CBC shows leukocytosis to 21; chemistry shows hyponatremia likely hypovolemic. Lactate elevated 3.4. Mild rhabdomyolysis with CPK 1473. COVID and flu swabs negative. Chest x-ray shows left lower lobe pneumonia. Overall clinical
picture concerning for sepsis secondary to pneumonia. Given his history of chronic aspiration should cover for aspiration pneumonia. Will treat with Zosyn and Doxy. Given 30 cc/kg IV fluid bolus. Case discussed with hospitalist for admission.
Chronic conditions affecting care:
Parkinson's, stroke
*Radiology
Radiology exam reviewed: preliminary read by ED provider
*Pulse Oximetry
SaO2: 93
Oxygen Mode of Delivery: Room air
Patient hypoxic: no (93%)
*Critical Care Note
Total Time (30-74mins, 75-104mins- exclusive of procedures): 30
comment:
Critical care statement: A total of 30 minutes of critical care time was provided for this patient. This includes management of unstable vital signs, evaluation of the patient at bedside, frequent reassessment, discussion with
consultants/hospitalist, and review of pertinent medical records. This time was separate from time utilized to perform any aforementioned documented procedures
Data Reviewed
Review of Other/Old Records Reveals: Labs, Records and Discharge Summary
Source: patient, records and family
Patient Management
Social determinants of health affecting care: Living situation (Lives independently)
Discussion with other providers: Hospitalist (Discussed with hospitalist)
Escalation/DeEscalation of care consider admission/obs:
Admission indicated
ED Attending Note
-
Portions of this chart may have been created with voice recognition software.� Occasional wrong word or��sound alike� substitutions may have occurred due to the inherent limitations of voice recognition software.
Discharge Plan
Departure
Patient Disposition: Admit
Date of Disposition: 06/25/25
Time of Disposition: 11:29
Admit to doctor: Adeel
Presentation/result/management discussed w/ accepting MD/DO: Hospitalist
Discharge Problem:
Pneumonia, Sepsis, Rhabdomyolysis
Interventions
Interventions:
*Risk Screen - Suicide Last Done: 06/25/25 16:10
*General Assessment Last Done: 06/25/25 10:02
*Neglect/Abuse Screening Last Done: 06/25/25 10:48
*ED- Fall Risk Assessment Last Done: 06/25/25 10:03
*ED COVID-19 Vaccine History Last Done: 06/25/25 10:03
*Nursing Disposition Last Done: 06/25/25 14:51
Discharge Date and Time
Discharge Date/Time: 06/25/25 14:52
[2025-06-25] MEDS: NSS 1000 IV ×4 (10:35→21:35)
[2025-06-25 10:51] LABS: Hematocrit 40.4 % (39.0-52.0); Hemoglobin 14.0 g/dL (13.0-18.0); Mean Corp Hgb Conc. 34.7 g/dL (33.0-37.0); Mean Corpuscular Volume 77.1 fL (80.0-94.0); Nucleated Red Blood Cells % 0 % (-); Platelet Count 409 10^3/uL (130-400); Red Cell Dist. Width 12.9 % (11.5-14.5)
[2025-06-25 11:01] LABS: INR 1.38; PT 17.2 Sec (11.4-14.6)
[2025-06-25 11:02] LABS: APTT 36.5 Sec (23.4-35.0)
[2025-06-25 11:08] LABS: ALT (SGPT) 11 U/L (0-50); AST (SGOT) 101 U/L (17-59); Albumin 3.6 g/dl (3.5-5.0); Alkaline Phosphatase 104 U/L (38-126); Blood Urea Nitrogen 19 mg/dl (9-20); Calcium 9.2 mg/dl (8.4-10.2); Carbon Dioxide 23 mmol/L (22-30); Chloride 94 mmol/L (98-107); Estimated Creatinine Clearance 56 ml/min; Glucose 168 mg/dl (70-99); Magnesium 1.9 mg/dl (1.6-2.3); Potassium 4.3 mmol/L (3.5-5.1); Sodium 128 mmol/L (135-145); Total Protein 6.7 g/dl (6.3-8.2); eGFR > 60.00
[2025-06-25 11:10] LABS: COVID-19 Antigen Negative (Negative)
[2025-06-25 11:27] LABS: Troponin I 0.545 ng/ml
[2025-06-25] MEDS: ZOSYN 50 IV ×3 (11:32→23:12)
--- NOTE | 2025-06-25 11:34 | EDRN ---
Pt to get a total of 2000 mL and 1000 mL already infused.
--- NOTE | 2025-06-25 11:40 | EDRN ---
Pt attempting urine spec in urinal at this time.
--- NOTE | 2025-06-25 11:55 | HPS.HSE ---
Family Physician
-
Family Physician: Nasra Tipton MD, Resident
Chief Complaint
-
weakness, fall
History of Present Illness
65-year-old male with a past medical history of hypertension, hyperlipidemia, Parkinson's disease, stroke, and dysphagia who presents with weakness. Per son, patient fell out of bed, he could not get up. He started feeling weak for the last few
days, with poor oral intake. He had a stroke in December 2024, and was noted to have dysphagia. He was discharged from [facility] on a regular diet. Son reports that patient complained about difficulty swallowing the last few days. Patient also
complains of a stomachache. Patient denies shortness of breath, denies cough. Denies chest pain. No fever, no vomiting. Patient lives alone, and his son checks in on him.
Medical History
Past Medical History
Past Medical History: Reports Other
Additional Past Medical History:
Chronic back pain
Stroke
Hypertension
Hyperlipidemia
Dysphagia
Past Surgical History: Reports Other (spine surgery)
Social History
Tobacco: Former Smoker (previous pack a day; 2-3 cigs per week now)
Alcohol: None
Drug: None
Employment: Retired
Family History
Family History: Not pertinent
Allergies / Home Medications
Allergies reflects when Allergies were last updated in [facility].
Home Medications with original date entered in [facility]
Allergy/Medication List:
Allergies
Allergy/AdvReac Type Severity Reaction Status Date / Time
No Known Allergies Allergy Verified 06/25/25 09:58
Home Medications Table - record
�Medication �Instructions �Recorded �Confirmed
amlodipine 5 mg tablet 5 mg PO BID #30 tabs 01/09/25 06/25/25
atorvastatin 40 mg tablet 40 mg PO QPM #30 tabs 01/09/25 06/25/25
carbidopa 10 mg-levodopa 100 mg 1 tab PO TID 06/25/25 06/25/25
tablet
lisinopril 5 mg tablet 5 mg PO BID 06/25/25 06/25/25
Review of Systems
-
A 12 point ROS was completed and negative except as noted: Yes
Physical Exam
Vital Signs
Vital Signs
Temp Pulse Resp BP Pulse Ox
97.8 F 89 24 108/75 97
06/25/25 09:58 06/25/25 10:45 06/25/25 10:45 06/25/25 10:21 06/25/25 10:49
Physical Exam
General: No Apparent Distress and Other (Appears weak and disheveled)
HEENT: NormoCephalic, Anicteric and Moist mucous membranes
Respiratory: Decreased Breath Sounds
Cardiac: S1/S2 and Regular Rhythm
GI: Soft, Non Tender, Non Distended and Normal Bowel Sounds
Musculoskeletal: No Clubbing, No Cyanosis and No Edema
Skin: Warm and Dry
Neuro: Awake, Alert and Oriented
Psych: Calm
Laboratory Results
-
06/25/25 10:36
06/25/25 10:36
Laboratory Results
PT 17.2 Sec (11.4-14.6) H 06/25/25 10:36
INR 1.38 06/25/25 10:36
APTT 36.5 Sec (23.4-35.0) H 06/25/25 10:36
Lactic Acid 3.4 mmol/L (0.7-2.0) H 06/25/25 10:36
Total Bilirubin 0.9 mg/dl (0.2-1.3) 06/25/25 10:36
AST 101 U/L (17-59) H 06/25/25 10:36
ALT 11 U/L (0-50) 06/25/25 10:36
Alkaline Phosphatase 104 U/L (38-126) 06/25/25 10:36
Troponin I 0.545 ng/ml H* 06/25/25 10:36
Impression/Plan
-
HPI: 65-year-old male with a past medical history of hypertension, hyperlipidemia, Parkinson's disease, stroke, and dysphagia who presents with weakness. Per son, patient fell out of bed, he could not get up. He started feeling weak for the last
few days, with poor oral intake. He had a stroke in December 2024, and was noted to have dysphagia. He was discharged from [facility] on a regular diet. Son reports that patient complained about difficulty swallowing the last few days. Patient also
complains of a stomachache. Patient denies shortness of breath, denies cough. Denies chest pain. No fever, no vomiting. Patient lives alone, and his son checks in on him.
#Sepsis
#Pneumonia, likely aspiration
Covid/flu neg, urine Legionella/strep antigen negative
Continue Zosyn, doxycycline, follow-up on blood cultures
Add Mucinex and bronchodilators, trend fever and WBC
#History of dysphagia
Seen by [facility], cleared for regular diet with thin liquids
#Hypovolemic hyponatremia
Due to poor oral intake, continue gentle normal saline
#Weakness/mechanical fall
Consult PT/OT
#Rhabdomyolysis
IV fluids, trend CK
#Nonischemic myocardial injury troponin elevation
Due to sepsis and pneumonia, trend troponins
#History of stroke
Continue statin, unclear why he is not on aspirin, will add
#Essential hypertension
Hold home amlodipine 5 mg twice a day, and hold home lisinopril 5 mg twice a day as blood pressure in the ED is soft
#Probable Parkinson's disease
Continue Sinemet
DVT prophylaxis�subcu Lovenox
DNR
Updated son at bedside 06/25
Total time spent to see the patient on the floor, examine the patient, review data and lab results, discuss treatment plan with patient, nursing staff around 77 minutes.
[2025-06-25] MEDS: VIBRAMYCIN 260 MG IV (12:09)
--- NOTE | 2025-06-25 12:20 | EDRN ---
Dr. Rodgers said to stop IV fluid bolus and decrease rate to 75 mL per hour. Done at this time.
[2025-06-25 12:30] LABS: Urine Character Clear (Clear)
[2025-06-25 13:04] LABS: Urine Red Blood Cell 0-2 /HPF (0-2); Urine Urothelial Cell 0-2 /LPF (FEW)
[2025-06-25] MEDS: NSS IV (13:22)
--- NOTE | 2025-06-25 13:36 | EDRN ---
POX 85-88% on RA and pt placed on oxygen at 2lpm via NC at this time.
--- NOTE | 2025-06-25 14:00 | EDRN ---
POX in 80's w/ oxygen increased to 3lpm via NC.
--- NOTE | 2025-06-25 14:48 | EDRN ---
Lactic #2 drawn and sent at this time.
--- NOTE | 2025-06-25 16:35 | PTCARENOTE ---
pt presents from ED via stretcher. pt is AAO*2, dis to time. pt confused unaware of year, month and birthday. difficulty following commands. pt on bed alarm, call puente within the reach. son at the bedside updated. labs & EKG done. plan of care
ongoing.
[2025-06-25 16:41] LABS: Blood Urea Nitrogen 16 mg/dl (9-20); Calcium 8.3 mg/dl (8.4-10.2); Carbon Dioxide 25 mmol/L (22-30); Chloride 97 mmol/L (98-107); Estimated Creatinine Clearance 67 ml/min; Glucose 116 mg/dl (70-99); Potassium 3.6 mmol/L (3.5-5.1); Sodium 130 mmol/L (135-145); eGFR > 60.00
--- NOTE | 2025-06-25 16:43 | PTOTSP ---
Speech-Language Therapy Evaluation
Pt seen for bedside swallow evaluation with son present. Pt at an elevated risk of aspiration given prior stroke (12/2024) with residual right sided weakness and expressive aphasia along with concern for Parkinson's Disease. Pt managed regular solids
and thin liquids with no overt s/sx of aspiration, clear vocal quality, but with mildly increased breath sounds. Pt edu on diet recommendation and general aspiration precautions.�
Recommend:
1. IDDSI 7 Regular Solids, IDDSI 0 Thin liquids
2. Standard aspiration precautions
3. Medication as best tolerated
4. CHIEF CLINICAL DIETITIAN to follow to ensure diet tolerance
[2025-06-25 16:57] LABS: Troponin I 0.626 ng/ml
[2025-06-25] MEDS: LOVENOX 40 MG SC (17:07)
[2025-06-25] MEDS: KCL 20 MEQ PO (17:09)
[2025-06-25] MEDS: LOW STRENGTH ASPIRIN 81 MG PO (17:09)
[2025-06-25] MEDS: LIPITOR 40 MG PO (17:09)
[2025-06-25] MEDS: SINEMET 10-100 1 TABLET PO ×2 (17:15→23:12)
[2025-06-25] MEDS: MUCINEX 600 MG PO (19:48)
[2025-06-26] VITALS (7 sets, daily range): BP systolic 90–112; BP diastolic 52–72; PULSE 90–106; O2SAT 92; BMI 18.4
[2025-06-26] MEDS: VIBRAMYCIN 260 MG IV ×2 (00:23→12:20)
[2025-06-26] MEDS: ZOSYN 50 IV ×4 (05:47→22:54)
[2025-06-26] MEDS: LOW STRENGTH ASPIRIN 81 MG PO (07:52)
[2025-06-26] MEDS: MUCINEX 600 MG PO ×2 (07:53→19:28)
[2025-06-26] MEDS: SINEMET 10-100 1 TABLET PO ×3 (07:53→22:54)
--- NOTE | 2025-06-26 08:59 | W.PN.HOSP.TC ---
Today's Communication/Plan
-
see bold
Assessment / Plan
Assessment / Plan
HPI: 65-year-old male with a past medical history of hypertension, hyperlipidemia, Parkinson's disease, stroke, and dysphagia who presents with weakness. Per son, patient fell out of bed, he could not get up. He started feeling weak for the last
few days, with poor oral intake. He had a stroke in December 2024, and was noted to have dysphagia. [facility]. Son reports that patient complained about difficulty swallowing the last few days. Patient also
complains of a stomachache. Patient denies shortness of breath, denies cough. Denies chest pain. No fever, no vomiting. Patient lives alone, and his son checks in on him.
#Sepsis
#Pneumonia, likely aspiration
#Acute hypoxic respiratory insufficiency
Covid/flu neg, urine Legionella/strep antigen negative
Continue Zosyn/doxycycline D2, follow-up on blood cultures
Continue Mucinex and bronchodilators, trend fever and WBC
Currently requiring 3 L of oxygen, wean as tolerated,
#History of dysphagia
Seen by SPL, cleared for regular diet with thin liquids
#Hypovolemic hyponatremia
TSH normal, f/u am cortisol
Suspect due to poor oral intake
Continue gentle normal saline, fluid restriction, trend sodium
#Weakness/mechanical fall
Patient lives alone, son checks in on him
PT/OT rec STR
#Rhabdomyolysis
Due to fall
IV fluids, trend CK
#Nonischemic myocardial injury troponin elevation
Due to sepsis and pneumonia
#History of stroke
Continue statin, unclear why he is not on aspirin, added upon admission
#Essential hypertension
Hold home amlodipine 5 mg twice a day, and hold home lisinopril 5 mg twice a day as blood pressure is soft
#Probable Parkinson's disease
Continue Sinemet
DVT prophylaxis�subcu Lovenox
DNR
Updated son at bedside 06/25
Total time spent to see the patient on the floor, examine the patient, review data and lab results, discuss treatment plan with patient, nursing staff around 50 minutes.
Physical Exam
General: No Apparent Distress and Other (Appears weak and disheveled)
HEENT: NormoCephalic, Anicteric and Moist mucous membranes
Respiratory: Decreased Breath Sounds
Cardiac: S1/S2 and Regular Rhythm
GI: Soft, Non Tender, Non Distended and Normal Bowel Sounds
Musculoskeletal: No Clubbing, No Cyanosis and No Edema
Skin: Warm and Dry
Neuro: Awake, Alert and Oriented
Psych: Calm
Anticipated Discharge: > 48 hours
Subjective/Interval History
-
Date of Service: June 26, 2025
Patient reports coughing, nonproductive. Denies shortness of breath. No abdominal pain. No fever, no vomiting.
Objective Data
-
Labs:
Laboratory Results
06/26/25
07:57
WBC Pending
Hgb Pending
Hct Pending
Plt Count Pending
Sodium Pending
Potassium Pending
Chloride Pending
Carbon Dioxide Pending
BUN Pending
Creatinine Pending
Glucose Pending
Calcium Pending
Vital Signs:
Vital Signs
Temp Pulse Resp BP Pulse Ox
98.2 F 87 22 95/63 92
06/26/25 07:55 06/26/25 07:55 06/26/25 07:55 06/26/25 07:55 06/26/25 07:55
I&O
06/25/25 06/26/25 06/27/25
06:59 06:59 06:59
Intake Total 120 / 120
Balance 120 / 120
[2025-06-26 09:36] LABS: Hematocrit 38.0 % (39.0-52.0); Hemoglobin 12.7 g/dL (13.0-18.0); Mean Corp Hgb Conc. 33.4 g/dL (33.0-37.0); Mean Corpuscular Volume 79.5 fL (80.0-94.0); Platelet Count 357 10^3/uL (130-400); Red Cell Dist. Width 13.2 % (11.5-14.5)
[2025-06-26 09:57] LABS: Troponin I 0.325 ng/ml
[2025-06-26 09:59] LABS: Blood Urea Nitrogen 16 mg/dl (9-20); Calcium 7.9 mg/dl (8.4-10.2); Carbon Dioxide 22 mmol/L (22-30); Chloride 99 mmol/L (98-107); Estimated Creatinine Clearance 76 ml/min; Glucose 76 mg/dl (70-99); Magnesium 2.0 mg/dl (1.6-2.3); Potassium 3.4 mmol/L (3.5-5.1); Sodium 130 mmol/L (135-145); eGFR > 60.00
[2025-06-26 10:43] LABS: Vitamin B12 269 pg/ml (239-931)
[2025-06-26] MEDS: KCL 40 MEQ PO (12:20)
[2025-06-26 13:00] LABS: Cortisol, Random 48.2 ug/dl
--- NOTE | 2025-06-26 14:42 | CM ---
Patient sleeping. Initial assessment completed with son in room. Patient lives alone in a 2 story home plus basement with B/B on main level, 14 steps to enter home and 11 steps to get to main level. 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
ambulation, does not drive. In the home he has a w/ch, RW, SPC, quad cane and standard walker. He used the DME S/P CVA. In the past he had in-home services for PT and speech. Patient stopped the sessions. Son does not recall the name of agency.
He had no in-home services [employer]. Son assists with food shopping, paying bills and maintaining the property. Does have HC-POA. No VA benefits. No psychiatric hospitalizations. PCP is Dr. Nasra Tipton. Pharmacy is [facility] on [address] in [place].
Discharge POC: Therapy recommendation for SNF. Will need to get preferences.
[2025-06-26] MEDS: NSS 1000 IV (15:02)
[2025-06-26] MEDS: TYLENOL 650 MG PO (15:59)
[2025-06-26] MEDS: LIPITOR 40 MG PO (17:08)
[2025-06-26] MEDS: LOVENOX 40 MG SC (17:08)
[2025-06-27] MEDS: VIBRAMYCIN 260 MG IV ×2 (00:12→11:51)
[2025-06-27] MEDS: ROXICODONE 5 MG PO ×2 (00:18→05:12)
[2025-06-27 03:10] VITALS: BP 103/60
[2025-06-27] MEDS: NSS 1000 IV ×2 (03:49→17:10)
[2025-06-27] MEDS: ZOSYN 50 IV ×3 (05:01→17:11)
[2025-06-27] MEDS: LOW STRENGTH ASPIRIN 81 MG PO (07:27)
[2025-06-27] MEDS: SINEMET 10-100 1 TABLET PO ×3 (07:27→22:08)
[2025-06-27] MEDS: MUCINEX 600 MG PO ×2 (07:27→20:26)
[2025-06-27 07:55] VITALS: BP 144/66
--- NOTE | 2025-06-27 09:06 | W.PN.HOSP.TC ---
Today's Communication/Plan
-
see bold
Assessment / Plan
Assessment / Plan
HPI: 65-year-old male with a past medical history of hypertension, hyperlipidemia, Parkinson's disease, stroke, and dysphagia who presents with weakness. Per son, patient fell out of bed, he could not get up. He started feeling weak for the last
few days, with poor oral intake. He had a stroke in December 2024, and was noted to have dysphagia. [facility]. Son reports that patient complained about difficulty swallowing the last few days. Patient also
complains of a stomachache. Patient denies shortness of breath, denies cough. Denies chest pain. No fever, no vomiting. Patient lives alone, and his son checks in on him.
#Sepsis
#Pneumonia, likely aspiration
#Acute hypoxic respiratory insufficiency
Covid/flu neg, urine Legionella/strep antigen negative, blood cultures NTD
Continue Zosyn/doxycycline D3
Continue Mucinex and bronchodilators, trend fever and WBC
Currently requiring 2 L of oxygen, wean as tolerated, wean as tolerated
#History of dysphagia
Seen by SPL, cleared for regular diet with thin liquids
#Hypovolemic hyponatremia
TSH normal, cortisol normal
Suspect due to poor oral intake
Continue gentle normal saline for 1 more day, fluid restriction, trend sodium
#Weakness/mechanical fall
Patient lives alone, son checks in on him
PT/OT rec STR
Patient declines, but son is trying to convince him to go
#Rhabdomyolysis
Due to fall, CK trending down
IV fluids for 1 more day, trend CK
#Hypokalemia
Magnesium normal, continue to replete, repeat a.m. labs
#Nonischemic myocardial injury troponin elevation
Due to sepsis and pneumonia
#History of stroke
Continue statin, unclear why he is not on aspirin, added upon admission
#Essential hypertension
Hold home amlodipine 5 mg twice a day due to soft BP upon admission
Blood pressure trending up, resume home lisinopril 5 mg twice a day
#Probable Parkinson's disease
Continue Sinemet
DVT prophylaxis�subcu Lovenox
DNR
Updated son 06/27
Total time spent to see the patient on the floor, examine the patient, review data and lab results, discuss treatment plan with patient, nursing staff around 51 minutes.
Physical Exam
General: No Apparent Distress and Other (Appears weak and disheveled)
HEENT: NormoCephalic, Anicteric and Moist mucous membranes
Respiratory: Decreased Breath Sounds
Cardiac: S1/S2 and Regular Rhythm
GI: Soft, Non Tender, Non Distended and Normal Bowel Sounds
Musculoskeletal: No Clubbing, No Cyanosis and No Edema
Neuro: Awake, Alert and Oriented
Anticipated Discharge: 24 - 48 hours
Subjective/Interval History
-
Date of Service: June 27, 2025
Patient denies shortness of breath. He does have a dry cough. Denies nausea, denies vomiting. No abdominal pain. No fever.
Objective Data
-
Labs:
Laboratory Results
06/27/25
08:41
WBC Pending
Hgb Pending
Hct Pending
Plt Count Pending
Vital Signs:
Vital Signs
Temp Pulse Resp BP Pulse Ox
99.7 F 93 20 144/66 98
06/27/25 07:55 06/27/25 07:55 06/27/25 07:55 06/27/25 07:55 06/27/25 07:55
I&O
06/26/25 06/27/25 06/28/25
06:59 06:59 06:59
Intake Total 120 / 120 2049
Balance 120 / 120 2049
[2025-06-27 09:16] LABS: Hematocrit 33.0 % (39.0-52.0); Hemoglobin 11.4 g/dL (13.0-18.0); Mean Corp Hgb Conc. 34.5 g/dL (33.0-37.0); Mean Corpuscular Volume 76.9 fL (80.0-94.0); Platelet Count 295 10^3/uL (130-400); Red Cell Dist. Width 13.4 % (11.5-14.5)
[2025-06-27 09:51] LABS: Blood Urea Nitrogen 15 mg/dl (9-20); Calcium 7.4 mg/dl (8.4-10.2); Carbon Dioxide 20 mmol/L (22-30); Chloride 104 mmol/L (98-107); Estimated Creatinine Clearance 89 ml/min; Glucose 129 mg/dl (70-99); Potassium 3.4 mmol/L (3.5-5.1); Sodium 131 mmol/L (135-145); eGFR > 60.00
[2025-06-27] MEDS: MIRALAX 17 GRAMS PO (11:01)
[2025-06-27] MEDS: KCL 40 MEQ PO ×2 (11:01→17:11)
[2025-06-27 11:15] VITALS: BP 146/77
--- NOTE | 2025-06-27 15:36 | CM ---
Spoke to son, Kamaljit, regarding therapy recommendation for SNF for STR. Placed [employer] lists in patient's room. Kamaljit will visit patient tomorrow and choose at least 5 preferences. Also explained to patient.
[2025-06-27 15:55] VITALS: BP 149/103
[2025-06-27] MEDS: LOVENOX 40 MG SC (17:11)
[2025-06-27] MEDS: LIPITOR 40 MG PO (17:11)
[2025-06-27 19:15] VITALS: BP 106/66
[2025-06-27] MEDS: VIBRAMYCIN 100 MG PO (20:26)
[2025-06-27] MEDS: SENOKOT-S PO (22:08)
[2025-06-27 23:11] VITALS: BP 133/78
[2025-06-28] MEDS: ZOSYN 50 IV ×3 (00:02→12:23)
[2025-06-28] MEDS: ROXICODONE 5 MG PO (02:52)
[2025-06-28 03:18] VITALS: BP 122/71
[2025-06-28] MEDS: NSS 1000 IV (06:04)
[2025-06-28 06:59] LABS: Hematocrit 32.7 % (39.0-52.0); Hemoglobin 11.1 g/dL (13.0-18.0); Mean Corp Hgb Conc. 33.9 g/dL (33.0-37.0); Mean Corpuscular Volume 78.8 fL (80.0-94.0); Platelet Count 324 10^3/uL (130-400); Red Cell Dist. Width 13.6 % (11.5-14.5)
[2025-06-28 07:29] LABS: Blood Urea Nitrogen 14 mg/dl (9-20); Calcium 7.9 mg/dl (8.4-10.2); Carbon Dioxide 21 mmol/L (22-30); Chloride 108 mmol/L (98-107); Estimated Creatinine Clearance 76 ml/min; Glucose 102 mg/dl (70-99); Magnesium 2.2 mg/dl (1.6-2.3); Potassium 4.2 mmol/L (3.5-5.1); Sodium 134 mmol/L (135-145); eGFR > 60.00
[2025-06-28 08:20] VITALS: BP 130/77
[2025-06-28] MEDS: SINEMET 10-100 1 TABLET PO ×3 (09:01→21:01)
[2025-06-28] MEDS: LOW STRENGTH ASPIRIN 81 MG PO (09:01)
[2025-06-28] MEDS: MUCINEX 600 MG PO ×2 (09:01→20:41)
[2025-06-28] MEDS: VIBRAMYCIN 100 MG PO (09:01)
[2025-06-28] MEDS: MIRALAX PO (09:01)
[2025-06-28 09:39] VITALS: BP 138/71; PULSE 87; O2SAT 93
--- NOTE | 2025-06-28 09:57 | CM ---
Addendum entered by Isela Hernandez RN 06/28/25 13:13:
Spoke with Kamaljit he provided SN[facility] picks:[facility].All entered in care port.
As per wire roller will need air mattress. Info Included in referral.
Original Note:
PT OT indicate pt requires SNF at dc.
Prior CM provided PAC data .
Obtained SNF choice and enter in care port.
Pt has medicare.
PLAN To SNf at dc after locating
[2025-06-28 11:45] VITALS: BP 123/73
--- NOTE | 2025-06-28 12:39 | WOUNDNOTE ---
[facility] RN note: Patient admitted with sepsis, pneumonia, rhabdomyolysis, fall at home, poor appetite. Patient lives alone. SNF/rehab planned when discharged.
See H&P for complete history.
PMH: HTN, Parkinson's, CVA, dysphagia, spine surgery.
Wound Location and type/assessment: Patient admitted with: R upper back skin tear, pink with yellow fibrin and local erythema. Slow to xiao sacrum. R lateral ankle blanchable mild red. Heels blanchable red. L hand small dermal skin tear.
Penis/scotal mild MASD. Penis tip denuded skin suspect r/t moisture.
Appetite: poor. Patient is very thin.
Pressure redistribution devices in place: [facility] Air bed. Patient cannot turn self in bed.
Plan: Sacral shaped silicone border foam applied to sacrum. Silicone border foam changed on back. Haley care given. Calazime applied to penis tip by PCT Bradley. Patient turned to R semi side lying position with help from PCT Bradley. Heels off bed with
pillow. Air chair cushion given. Foam dressing maintained on elbows. Protective foam dressing changed on heels. t/c SPD and ordered TruVue lite boots. Discussed with RN Lorena. Instructed son can take air chair cushion for patient on day of
discharge.
Will confirm orders with Dr. Leiva and discussed with RN.
Care plan to be updated and will follow as needed.
Note to case management of equipment requested for discharge: Air mattress.
Recommend follow up at wound care center upon discharge if needed.
--- NOTE | 2025-06-28 13:00 | WOUNDNOTE ---
W[facility] RN note: shannen Hernandez re: recommend an air mattress at SNF. Patient is high risk for a pressure injury (he is very thin, poor appetite, limited mobility).
--- NOTE | 2025-06-28 13:08 | W.PN.HOSP.TC ---
Today's Communication/Plan
-
unasyn
check BNP, DDimer, trop
Echo
Wean off O2
Assessment / Plan
Assessment / Plan
65yo M with cognitive impairment, parkinsons, HTN, HLD, CVA with residual R sided weakness and dysphagia brought by son due to declining status after his recent stroke 6 months ago. Found possible aspiration pneumonia
A/P:
#Acute hypoxic insufficiency probably 2/2 CAP, cannot exclude aspiration
#Leukocytosis
XR showed Hazy opacity within the left lung base suspicious for pneumonia, should not be cause of hypoxia
MRSA screen neg -stop Doxy
switch to Unasyn on 06/28/25
follow CBC
check proBNP, DDImer
wean off O2
#HX of CVA with residual R sided weakness and dysphagia
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
ASA, statin
#Elevated troponin
thought to be 2/2 non-ischemic myocardial injury
cannot exclude 2/2 hypoxia
follow trop
EKG with no overt TWI or ST changes concerning for ACS
Echo
#Cognitive impairment vs dementia
poor historian
#Hyponatremia
suspect 2/2 pulmonary disease
Improved on FR - liberalize fluid intake
cont to follow BMP
#Ambulatory deficiency
PT/OT recommended STR
#Hx of essential HTN, now with episode of hypotension
BP acceptable with cessation of Norvasc
#Rhabdomyolysis
2/2 falls
improved
stop IVF
#microcytic anemia
check iron, TIBC, ferritin
#Relative b12 deficiency
supplement
#HLD
#parkinsons
cont statin, sinemet
DVT ppx Lovenox
DNR/DNI
I have spent at least 56min reviewing chart, test results providing direct patient care
Anticipated Discharge: > 48 hours
Subjective/Interval History
-
Date of Service: June 28, 2025
Objective Data
-
Labs:
Laboratory Results
06/28/25
06:26
WBC 16.2 H
Hgb 11.1 L
Hct 32.7 L
Plt Count 324
Sodium 134 L
Potassium 4.2
Chloride 108 H
Carbon Dioxide 21 L
BUN 14
Creatinine 0.7
Glucose 102 H
Calcium 7.9 L
Vital Signs:
Vital Signs
Temp Pulse Resp BP Pulse Ox
98.2 F 78 20 123/73 94
06/28/25 11:45 06/28/25 11:45 06/28/25 11:45 06/28/25 11:45 06/28/25 11:45
I&O
06/27/25 06/28/25 06/29/25
06:59 06:59 06:59
Intake Total 2049 960 / 960
Balance 2049 960 / 960
Review of Systems
-
Unable to obtain full review of systems at this time due to: Dementia
History Source: Patient
Physical Exam
-
General: No Apparent Distress
HEENT: Normocephalic
Cardiac: Regular Rhythm
GI: Soft, Nontender and Nondistended
Musculoskeletal: No Clubbing, No Cyanosis and No Edema
Skin: Warm
Neuro: Awake and Alert
Psych: Calm
[2025-06-28 13:49] LABS: D-Dimer 2.31 ug/mlFEU (0.00-0.50)
[2025-06-28 13:59] LABS: Iron < 20 ug/dl (49-181); Total Iron Binding Capacity 144 ug/dl (261-462)
[2025-06-28 14:13] LABS: Troponin I 0.041 ng/ml
[2025-06-28] MEDS: UNASYN IV ×2 (15:53→20:42)
[2025-06-28 16:15] VITALS: BP 120/75
[2025-06-28 16:42] LABS: Ferritin 1070.0 ng/ml (17.9-464.0)
[2025-06-28] MEDS: CYANOCOBALAMIN 1000 MCG IM (17:35)
[2025-06-28] MEDS: LIPITOR 40 MG PO (17:41)
[2025-06-28] MEDS: LOVENOX 40 MG SC (17:41)
[2025-06-28] MEDS: SENOKOT-S PO (20:42)
[2025-06-28 23:16] VITALS: BP 130/72
[2025-06-29] VITALS (9 sets, daily range): BP systolic 60–143; BP diastolic 64–85
[2025-06-29] MEDS: UNASYN IV ×4 (02:08→19:56)
[2025-06-29 07:12] LABS: ALT (SGPT) 14 U/L (0-50); AST (SGOT) 68 U/L (17-59); Albumin 2.4 g/dl (3.5-5.0); Alkaline Phosphatase 84 U/L (38-126); Blood Urea Nitrogen 12 mg/dl (9-20); Calcium 7.7 mg/dl (8.4-10.2); Carbon Dioxide 20 mmol/L (22-30); Chloride 108 mmol/L (98-107); Estimated Creatinine Clearance 89 ml/min; Glucose 100 mg/dl (70-99); Potassium 3.5 mmol/L (3.5-5.1); Sodium 135 mmol/L (135-145); Total Protein 5.2 g/dl (6.3-8.2); eGFR > 60.00
[2025-06-29 07:18] LABS: LDH 331 U/L (120-246)
[2025-06-29 07:27] LABS: Hematocrit 31.5 % (39.0-52.0); Hemoglobin 10.9 g/dL (13.0-18.0); Mean Corp Hgb Conc. 34.6 g/dL (33.0-37.0); Mean Corpuscular Volume 79.1 fL (80.0-94.0); Nucleated Red Blood Cells % 0 % (-); Platelet Count 364 10^3/uL (130-400); Red Cell Dist. Width 13.8 % (11.5-14.5)
--- NOTE | 2025-06-29 07:32 | PN.CDI ---
CDI
- -
CDI:
Physician Documentation Request
Admit Date: 06/25/25 12:41
Dear Doctor Cali,
Please review the following and provide your response in the progress notes.
Clinical Indicators:
The diagnosis of sepsis was documented on 06/27 PN but is not consistently noted in subsequent documentation.
- On admission: WBC 21.0, HR 146, RR 20s
- 8L IVF
- IV abx Vibramycin, Zosyn
- 06/27 PN 'Sepsis...pneumonia, likely aspiration'
- 06/28 PN 'CAP, cannot exclude aspiration'
Please clarify the following:
____ - Sepsis was present on admission and is now resolved.
____ - Sepsis was present on admission and is still being monitored, evaluated or treated
____ - Sepsis was ruled out
____ - Sepsis is still a likely, suspected, probable diagnosis
____ - Other (please specify)
Use of terms such as suspected, likely, concern for, or probable (associated with a specific diagnosis that is being evaluated, monitored, or treated as if it exists) are acceptable and can be coded in the inpatient setting, when documented at the
time of discharge.
Thank you,
Vinod Cotto RN
CDI Specialist
Please use your independent medical judgment in providing your response.
--- NOTE | 2025-06-29 07:37 | PN.CDI ---
CDI
- -
CDI:
Physician Documentation Request
Admit Date: 06/25/25 12:41
Dear Doctor Cali,
Please review the following and provide your response in the progress notes.
Clinical Indicators:
- RN skin assessments indicate:
- Stage 1 sacrum pressure injury, POA
- Stage 1 bilateral heels pressure injury, POA
Physician documentation of the type and location of wounds is required for compliant documentation. Based on the above clinical findings and your assessment, please provide the following in your progress note:
1. Location of the ulcer/wound, including laterality.
2. Type (etiology) of ulcer/wound:
- Diabetic ulcer
- Arterial (ischemic) ulcer
- Traumatic wound
- Venous stasis ulcer
- Pressure (decubitus) ulcer
- Other
Use of terms such as suspected, likely, concern for, or probable (associated with a specific diagnosis that is being evaluated, monitored, or treated as if it exists) are acceptable and can be coded in the inpatient setting, when documented at the
time of discharge.
Thank you,
Vinod Cotto RN
CDI Specialist
Please use your independent medical judgment in providing your response.
*Source: National Pressure Ulcer Advisory Panel (NPUAP)
[2025-06-29] MEDS: SINEMET 10-100 1 TABLET PO ×3 (07:53→21:13)
[2025-06-29] MEDS: LOW STRENGTH ASPIRIN 81 MG PO (07:54)
[2025-06-29] MEDS: CYANOCOBALAMIN 1000 MCG IM (07:55)
[2025-06-29] MEDS: MUCINEX 600 MG PO ×2 (07:55→19:57)
--- NOTE | 2025-06-29 10:08 | CON.PUL ---
Consultation
Consultation Request
Date/Time Consultation Requested: 06/29/25
Date/Time Consultation Performed: 06/29/25
Performing Provider: Julieta
Reason for Consultation: PNA/chest tube
Medical History
-
History of Present Illness:
Patient is a 65-year-old male with a past medical history of hypertension, hyperlipidemia, Parkinson's disease, stroke, and dysphagia who presents with generalized weakness and decreased PO intake. He had reportedly fall out of bed and could not
get up. He had a stroke in December 2024, and was noted to have dysphagia. He was discharged from [facility] on a regular diet. Son reports that patient complained about difficulty swallowing the last few days. CXR completed on arrival with large L
sided PNA, chest tube placed by IR on 06/29/25.
Past Medical History
Past Medical History: Other (see list below)
Social History
Tobacco: Former Smoker (30 pack years, quit this past December)
Alcohol: None
Drug: None
Family History
Family History: Reviewed & Not Pertinent
Allergies / Home Medications
Allergies
Allergy/AdvReac Type Severity Reaction Status Date / Time
No Known Allergies Allergy Verified 06/25/25 09:58
Home Medications
�Medication �Instructions �Recorded �Confirmed �Last Taken �Type
atorvastatin 40 mg tablet 40 mg PO QPM #30 tabs 01/09/25 06/25/25 06/24/25 Rx
carbidopa 10 mg-levodopa 100 mg 1 tab PO TID Neurological Condition 06/25/25 06/25/25 06/25/25 History
tablet
lisinopril 5 mg tablet 5 mg PO BID Blood Pressure 06/25/25 06/25/25 06/25/25 History
amlodipine 5 mg tablet 5 mg PO BID Blood Pressure 06/26/25 06/25/25 06/25/25 History
Review of Systems
-
History Source: Patient
All other systems: Negative unless noted
Vitals / Labs / Diagnostic Testing
Vital Signs
Temp Pulse Resp BP Pulse Ox
98 F 60 16 143/80 96
06/29/25 08:43 06/29/25 08:43 06/29/25 08:43 06/29/25 08:43 06/29/25 08:43
Lab Data
06/29/25 06:20
06/29/25 06:20
Microbiology
06/25/25 10:46 Blood/Venous Blood Culture - Preliminary
No Growth in 72 hours- Final report to follow
06/25/25 10:36 Blood/Venous Blood Culture - Preliminary
No Growth in 72 hours- Final report to follow
Diagnostic Testing:
Physical Exam
-
HEENT: Normocephalic, Anicteric and Moist Mucous Membranes
Cardiovascular: S1/S2 and Regular Rhythm
Respiratory: Rales (L), Non-Labored Respirations and Other (chest tube on L)
GI: Soft, Non Distended and Non Tender
Neurology: Awake, Alert and Other (R gaze preference, L sided weakness)
Skin: Warm and Dry
General: Comfortable and Other (chronically ill appearing)
Assessment
-
Patient is a 65-year-old male with a past medical history of hypertension, hyperlipidemia, Parkinson's disease, stroke, and dysphagia who presents with generalized weakness and decreased PO intake. He had reportedly fall out of bed and could not
get up. He had a stroke in December 2024, and was noted to have dysphagia. He was discharged from [facility] on a regular diet. Son reports that patient complained about difficulty swallowing the last few days. CXR completed on arrival with large L
sided PNA, chest tube placed by IR on 06/29/25. We are consulted for evaluation 06/29/25.
Large R pleural effusion w/ loculations s/p chest tube placement 06/29/25
Suspect chronic aspiration PNA
Leukocytosis
Anemia, acute--likely iron deficiency
Metabolic acidosis
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
DH adm 12/2024--Hypertensive crisis requiring Cardene drip
Hypercholesterolemia
Active tobacco use disorder
Progressive expressive aphasia with cognitive decline and progressive ambulatory dysfunction likely due to subacute left MCA infarct with parkinsonism
Chronic back pain
Plan
No oxygen was needed on admission, currently saturating >90% on RA
Prior history of lung disease is NOT noted--was a former smoker, of 30 PY quit in december
At risk for COPD, never had PFTs
Suspect patient has severe aspiration PNA given recent CVA
CXR/CT obtained indicating large pleural effusion
s/p chest tube placement by IR
Await culture/cyto, chemistry results
Other imaging reviewed
Agree with IV abx
Speech eval noted, last seen 06/25
Will order VSE as his level of risk is high but this was not determined formally with diet changes/recs
Aspiration precautions
Follow up diet recs per team
Prior ECHO results are reviewed indicating stable function
Will await chemistry results to classify fluid
Smoking history noted--30 pack years noted
At risk for lung disease, await path from fluid as well
Smoking cessation encouraged
Poor PO intake, will need nutrition consult likely
We will follow
Diagnostic Data
Chest X-Ray:
CT head 01/05/2025: Possible small areas of acute/subacute infarcts in the left frontoparietal lobe. MRI would be of greater sensitivity.
CTA Head/Neck 01/05/2025: No significant vascular occlusion, aneurysm or dissection.
CHEST 06/28/25- No CTA evidence for an acute pulmonary thromboembolism. Large left pleural effusion with complete opacification of the left hemithorax. Compressive atelectasis of the entire left lung.
Mildly enlarged right hilar and subcarinal lymph nodes, nonspecific.
Echo: 06/28/25- 1. TDS. In limited views. Normal biventricular size and function without regional wall motion abnormalities.
2. LVEF is 60-65% by visual estimation. Diastolic function indeterminate.
3. No significant valvular disease. Normal estimated PASP at 24 mmHg.
4. Small pericardial effusion. Large pleural effusions.
5. Compared to prior from January 06, 2025, new small pericardial effusion and new large pleural effusions.
PFT's:
Reports and relevant images were personally reviewed.
Total time spent on this consultation __55__ minutes which includes review of history, physical exam, medications, laboratory data, personal review of imaging, extensive review of outpatient records, discussion with care team and respiratory therapy.
--- NOTE | 2025-06-29 10:16 | W.PN.UPDATE ---
Update Note
Progress Note Update
US shows a highly loculated left pleural effusion, decision made to place left chest tube rather than do thoracentesis. 16 Fr thal quik chest tube placed, wire used to disrupt as many loculations as possible. Drained clear serous fluid, sent for
analysis.
Patient tolerated well.
--- NOTE | 2025-06-29 11:14 | PTCARENOTE ---
Patient returned from IR with chest tube to L side. Connected chest tube to suction. Dressing CDI. VSS.
[2025-06-29] MEDS: MIRALAX 17 GRAMS PO (11:19)
[2025-06-29 11:54] LABS: Body Fluid Second Tech AP
--- NOTE | 2025-06-29 12:39 | W.PN.HOSP.TC ---
Today's Communication/Plan
-
cont Unasyn, pending Cx
VSE as perpulm
chest tube to low intermittent suction
Assessment / Plan
Assessment / Plan
65yo M with cognitive impairment, parkinsons, HTN, HLD, CVA with residual R sided weakness and dysphagia brought by son due to declining status after his recent stroke 6 months ago. Found possible aspiration pneumonia and loculated L large pleural
effusion
A/P:
#sepsis on admission with Acute hypoxic insufficiency probably 2/2 complicated pneumonia with unspecified organism, possible aspiration
#Parapneumonic effusion, empyema
#Leukocytosis
CT with large L effusion: s/p chest tube on 06/29/25, Cx pending
ph <6.8, large amount of WBC and high LDH - empyema by definition
MRSA screen neg - stop Doxy
Bcx NTD
switch to Unasyn on 06/28/25
Pulm consult
wean off O2
ProBNP low
#Dysphagia
with concern for aspiration pneumonia - VSE
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
#Elevated ddimer
#Elevated ferritin
acute phase reactant 2/2 pneumonia
#HX of CVA with residual R sided weakness and dysphagia
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
ASA, statin
#Elevated troponin
thought to be 2/2 non-ischemic myocardial injury
cannot exclude 2/2 hypoxia
follow trop - decreased to minimal 0.545-0.626-0.325-0.041
EKG with no overt TWI or ST changes concerning for ACS
Echo:Normal biventricular size and function without regional wall motion abnormalities, EF 60-65%, minimal pericardial effusion
#Stage 1 sacrum pressure injury, POA
#Stage 1 bilateral heels pressure injury, POA
Wound care
#Cognitive impairment vs dementia
poor historian
#Hyponatremia
suspect 2/2 pulmonary disease
Improved on FR - liberalize fluid intake
cont to follow BMP
#Ambulatory deficiency
PT/OT recommended STR
#Hx of essential HTN, now with episode of hypotension
BP acceptable with cessation of Norvasc
#Rhabdomyolysis
2/2 falls
improved
stop IVF
#microcytic anemia
check iron, TIBC, ferritin
#Relative b12 deficiency
supplement
#HLD
#parkinsons
cont statin, sinemet
DVT ppx Lovenox
DNR/DNI
I have spent at least 55min reviewing chart, test results, communication with consultants and family and providing direct patient care
Anticipated Discharge: > 48 hours
Subjective/Interval History
-
Date of Service: June 29, 2025
Objective Data
-
Labs:
Laboratory Results
06/29/25
06:20
WBC 15.2 H
Hgb 10.9 L
Hct 31.5 L
Plt Count 364
Sodium 135
Potassium 3.5
Chloride 108 H
Carbon Dioxide 20 L
BUN 12
Creatinine 0.6 L
Glucose 100 H
Calcium 7.7 L
Total Bilirubin 0.7
AST 68 H
ALT 14
Alkaline Phosphatase 84
Vital Signs:
Vital Signs
Temp Pulse Resp BP Pulse Ox
98.7 F 76 18 127/64 95
06/29/25 11:45 06/29/25 11:45 06/29/25 11:45 06/29/25 11:45 06/29/25 11:45
I&O
06/28/25 06/29/25 06/30/25
06:59 06:59 06:59
Intake Total 960 / 960 720 / 720
Balance 960 / 960 720 / 720
Review of Systems
-
History Source: Patient
All other systems: Reviewed and negative
Physical Exam
-
General: No Apparent Distress
HEENT: Normocephalic
Respiratory: Decreased Breath Sounds (L)
Cardiac: Regular Rhythm
GI: Soft
Musculoskeletal: No Clubbing, No Cyanosis and No Edema
Neuro: Awake, Alert, Oriented and AO x 3
Psych: Calm
[2025-06-29] MEDS: FERRLECIT 110 MG IV (12:40)
--- NOTE | 2025-06-29 16:18 | PTOTSP ---
Video Swallow Examination
Patient presents with a grossly functional oral/pharyngeal swallow despite mild lingual and pharyngeal weakness and disorganized initiation with oral transfer. No persistent laryngeal penetration or aspiration identified but risk elevated given risk
factors including but not limited to Parkinson's disease, current respiratory illness and deconditioning. Trace to minimal pharyngeal stasis cleared with secondary swallow. Esophagus with retained contrast mostly cleared following liquid wash.
Recommend
1. Regular solids and thin liquids. Avoid overly dense solids.
2. Meds with liquid as tolerated
3. Intersperse sip of liquid after every 2-3 bites of solid
4. Aspiration and Reflux precautions.
5. Remain upright for at least 30 minutes after meals.
6. Oral care at least 3 times daily
--- NOTE | 2025-06-29 16:18 | CM ---
Pt has chest tube.
Spoke with Kamaljit son he requested [facility] at discharge.
LOM with [facility], [facility].that patient went in another direction And would reconsult if needed.
As per supervisor counseling and guidance will need air mattress. Info Included in referral.
PLAN To [facility] when medically ready
[2025-06-29] MEDS: LOVENOX 40 MG SC (17:03)
[2025-06-29] MEDS: LIPITOR 40 MG PO (17:04)
[2025-06-29] MEDS: SENOKOT-S PO (19:57)
[2025-06-29] MEDS: ROXICODONE 5 MG PO (21:13)
--- NOTE | 2025-06-30 02:52 | DOWNTIME ---
There was a [employer] Medical Physics Professor Downtime on 06/30/2025 from 0100 to 06/30/2025 at 0215. Downtime documentation of patient's care, including medication administrations, has been reconciled in the electronic record per guidelines. Refer to the
patient's paper chart under the miscellaneous tab to see printed paper medication records and downtime forms.
[2025-06-30] MEDS: UNASYN IV ×4 (02:55→20:26)
[2025-06-30 07:03] LABS: Hematocrit 30.8 % (39.0-52.0); Hemoglobin 10.3 g/dL (13.0-18.0); Mean Corp Hgb Conc. 33.4 g/dL (33.0-37.0); Mean Corpuscular Volume 78.6 fL (80.0-94.0); Nucleated Red Blood Cells % 0 % (-); Platelet Count 425 10^3/uL (130-400); Red Cell Dist. Width 14.0 % (11.5-14.5)
[2025-06-30 07:11] VITALS: BP 131/73
[2025-06-30 07:30] LABS: ALT (SGPT) 14 U/L (0-50); AST (SGOT) 62 U/L (17-59); Albumin 2.4 g/dl (3.5-5.0); Alkaline Phosphatase 88 U/L (38-126); Blood Urea Nitrogen 13 mg/dl (9-20); Calcium 8.0 mg/dl (8.4-10.2); Carbon Dioxide 23 mmol/L (22-30); Chloride 107 mmol/L (98-107); Estimated Creatinine Clearance 89 ml/min; Glucose 105 mg/dl (70-99); Potassium 3.6 mmol/L (3.5-5.1); Sodium 137 mmol/L (135-145); Total Protein 5.2 g/dl (6.3-8.2); eGFR > 60.00
[2025-06-30] MEDS: LOW STRENGTH ASPIRIN 81 MG PO (09:21)
[2025-06-30] MEDS: MUCINEX 600 MG PO ×2 (09:21→20:25)
[2025-06-30] MEDS: SINEMET 10-100 1 TABLET PO ×3 (09:21→20:25)
[2025-06-30] MEDS: MIRALAX PO (09:24)
[2025-06-30] MEDS: CYANOCOBALAMIN 1000 MCG IM (09:24)
--- NOTE | 2025-06-30 09:34 | W.PN.PUL3 ---
Today's Communication / Plan
-
Remains with chest tube and large output--chemistry consistent w/ empyema
Continue IV abx
Repeat CXR showing still with significant effusion, continue on suction
Speech following, VSE reviewed, diet modification
Assessment
-
Patient is a 65-year-old male with a past medical history of hypertension, hyperlipidemia, Parkinson's disease, stroke, and dysphagia who presents with generalized weakness and decreased PO intake. He had reportedly fall out of bed and could not
get up. He had a stroke in December 2024, and was noted to have dysphagia. He was discharged from [facility] on a regular diet. Son reports that patient complained about difficulty swallowing the last few days. CXR completed on arrival with large L
sided PNA, chest tube placed by IR on 06/29/25. We are consulted for evaluation 06/29/25.
Large R pleural effusion w/ loculations s/p chest tube placement 06/29/25
Suspect chronic aspiration PNA
Leukocytosis
Anemia, acute--likely iron deficiency
Metabolic acidosis
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
Hypercholesterolemia
Active tobacco use disorder
Progressive expressive aphasia with cognitive decline and progressive ambulatory dysfunction likely due to subacute left MCA infarct with parkinsonism
Chronic back pain
Plan
No oxygen was needed on admission, currently saturating >90% on RA
Prior history of lung disease is NOT noted--was a former smoker, of 30 PY quit in december
At risk for COPD, never had PFTs
Suspect patient has severe aspiration PNA given recent CVA
CXR/CT obtained indicating large pleural effusion
s/p chest tube placement by IR
Chemistry: pH <6.8 - wbc 3953 - glu <30 - ldh 2796--consistent with empyema
Culture negative, cyto pending
Other imaging reviewed for comparison, not present on CXR 06/25 to the same degree
Repeat CXR showing mild improvement but still remains large
Output >1L thus far
Agree with IV abx
Speech following
VSE 06/29/25- Patient presents with a grossly functional oral/pharyngeal swallow despite mild lingual and pharyngeal weakness and disorganized initiation with oral transfer. No persistent laryngeal penetration or aspiration identified but risk
elevated given risk factors including but not limited to Parkinson's disease, current respiratory illness and deconditioning. Trace to minimal pharyngeal stasis cleared with secondary swallow. Esophagus with retained contrast mostly cleared
following liquid wash.
Aspiration precautions
Follow up diet recs per team
Prior ECHO results are reviewed indicating stable function
Chemistry suggestive of infection
Smoking history noted--30 pack years noted
At risk for lung disease, await path from fluid as well
Smoking cessation encouraged
Poor PO intake, will need nutrition consult likely
We will follow
Diagnostic Data
Chest X-Ray:
CT head 01/05/2025: Possible small areas of acute/subacute infarcts in the left frontoparietal lobe. MRI would be of greater sensitivity.
CTA Head/Neck 01/05/2025: No significant vascular occlusion, aneurysm or dissection.
CHEST 06/28/25- No CTA evidence for an acute pulmonary thromboembolism. Large left pleural effusion with complete opacification of the left hemithorax. Compressive atelectasis of the entire left lung.
Mildly enlarged right hilar and subcarinal lymph nodes, nonspecific.
Echo: 06/28/25- 1. TDS. In limited views. Normal biventricular size and function without regional wall motion abnormalities.
2. LVEF is 60-65% by visual estimation. Diastolic function indeterminate.
3. No significant valvular disease. Normal estimated PASP at 24 mmHg.
4. Small pericardial effusion. Large pleural effusions.
5. Compared to prior from January 06, 2025, new small pericardial effusion and new large pleural effusions.
PFT's:
Reports and relevant images were personally reviewed.
Total time spent on this consultation __51__ minutes which includes review of history, physical exam, medications, laboratory data, personal review of imaging, extensive review of outpatient records, discussion with care team and respiratory therapy.
Subjective Data
-
Date of Service:
Date of Service: June 30, 2025
Chief Complaint: Pulmonary Follow Up
Subjective:
Remains the same, no changes in his SOB
No new complaints
Objective Data
Data Reviewed
Vital Signs / I&O / Oxygen:
Vital Signs
Temp Pulse Resp BP Pulse Ox
97.6 F 73 18 123/67 94
06/29/25 23:20 06/29/25 23:20 06/29/25 23:20 06/29/25 23:20 06/29/25 23:20
Intake and Output
06/29/25 06/30/25 07/01/25
06:59 06:59 06:59
Intake Total 720 / 720 420 / 420
Output Total 1040 / 1040
Balance 720 / 720 -620 / -620
SaO2 94
Nasal Cannula flow liters per 2
minute
Physical Exam
General: Comfortable and Other (NAD, thin/chronically ill appearing)
HEENT: Normocephalic, Anicteric and Moist Mucous Membranes
Cardiovascular: S1-S2 and Regular Rhythm
Respiratory: Clear, Non-Labored Respirations and Other (decreased BS on the L)
GI: Soft, Non Distended and Non Tender
Neurology: Awake, Alert, Oriented and Other (L sided weakness, gaze preference on R)
Skin: Warm, Dry and Good Color
Labs/Micro/Reports
Lab Data
06/30/25 06:12
06/30/25 06:12
Microbiology
06/29/25 07:06 Pleural Fluid Gram Stain - Preliminary
06/25/25 10:46 Blood/Venous Blood Culture - Preliminary
No Growth in 4 days- Final report to follow
06/25/25 10:36 Blood/Venous Blood Culture - Preliminary
No Growth in 4 days- Final report to follow
--- NOTE | 2025-06-30 11:32 | W.PN.HOSP.TC ---
Today's Communication/Plan
-
cont Abx
cont chest tube
Assessment / Plan
Assessment / Plan
65yo M with cognitive impairment, parkinsons, HTN, HLD, CVA with residual R sided weakness and dysphagia brought by son due to declining status after his recent stroke 6 months ago. Found possible aspiration pneumonia and loculated L large pleural
effusion
A/P:
#sepsis on admission with Acute hypoxic insufficiency probably 2/2 complicated pneumonia with unspecified organism, possible aspiration
#Parapneumonic effusion, empyema
#Leukocytosis
CT with large L effusion: s/p chest tube on 06/29/25, Cx pending
ph <6.8, large amount of WBC and high LDH - empyema by definition
MRSA screen neg - stop Doxy
Bcx NTD
switch to Unasyn on 06/28/25
Pulm consult
wean off O2
ProBNP low
#Dysphagia
with concern for aspiration pneumonia - VSE
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
#Elevated ddimer
#Elevated ferritin
acute phase reactant 2/2 pneumonia
#HX of CVA with residual R sided weakness and dysphagia
PLANER OPERATOR advised regular diet
ASA, statin
#Elevated troponin
thought to be 2/2 non-ischemic myocardial injury
cannot exclude 2/2 hypoxia
follow trop - decreased to minimal 0.545-0.626-0.325-0.041
EKG with no overt TWI or ST changes concerning for ACS
Echo:Normal biventricular size and function without regional wall motion abnormalities, EF 60-65%, minimal pericardial effusion
#Stage 1 sacrum pressure injury, POA
#Stage 1 bilateral heels pressure injury, POA
Wound care
#Cognitive impairment vs dementia
poor historian
#Hyponatremia
suspect 2/2 pulmonary disease
Improved on FR - liberalize fluid intake
cont to follow BMP
#Ambulatory deficiency
PT/OT recommended STR
#Hx of essential HTN, now with episode of hypotension
BP acceptable with cessation of Norvasc
#Rhabdomyolysis
2/2 falls
improved
stop IVF
#microcytic anemia
check iron, TIBC, ferritin
#Relative b12 deficiency
supplement
#HLD
#parkinsons
cont statin, sinemet
DVT ppx Lovenox
DNR/DNI
I have spent at least 55min reviewing chart, test results, communication with consultants and family and providing direct patient care
Anticipated Discharge: > 48 hours
Subjective/Interval History
-
Date of Service: June 30, 2025
Objective Data
-
Labs:
Laboratory Results
06/30/25
06:12
WBC 9.2
Hgb 10.3 L
Hct 30.8 L
Plt Count 425 H
Sodium 137
Potassium 3.6
Chloride 107
Carbon Dioxide 23
BUN 13
Creatinine 0.6 L
Glucose 105 H
Calcium 8.0 L
Total Bilirubin 0.6
AST 62 H
ALT 14
Alkaline Phosphatase 88
Vital Signs:
Vital Signs
Temp Pulse Resp BP Pulse Ox
98.5 F 79 16 131/73 93
06/30/25 07:11 06/30/25 07:11 06/30/25 07:11 06/30/25 07:11 06/30/25 07:11
I&O
06/29/25 06/30/25 07/01/25
06:59 06:59 06:59
Intake Total 720 / 720 420 / 420
Output Total 1040 / 1040
Balance 720 / 720 -620 / -620
Review of Systems
-
History Source: Patient
All other systems: Reviewed and negative
Physical Exam
-
General: No Apparent Distress
HEENT: Normocephalic, Atraumatic and Moist Mucous Membranes
Respiratory: Decreased Breath Sounds (L)
Cardiac: Regular Rhythm
Musculoskeletal: No Clubbing, No Cyanosis and No Edema
Neuro: Awake, Alert, Oriented and AO x 3
Psych: Calm
--- NOTE | 2025-06-30 11:34 | CM ---
Patient seen at bedside on . Patient continues with chest tube and per physician not medically appropriate for SNF. CM will need to send updated clinicals to [facility] when closer to discharge to confirm bed availability. CM will continue to follow
for discharge planning needs.
Plan; SNF; [facility] when medically appropriate
[2025-06-30] MEDS: FERRLECIT 110 MG IV (14:46)
[2025-06-30 15:26] VITALS: BP 152/79
[2025-06-30] MEDS: LOVENOX 40 MG SC (17:22)
[2025-06-30] MEDS: LIPITOR 40 MG PO (17:24)
[2025-06-30] MEDS: SENOKOT-S 2 TABLET PO (20:26)
[2025-06-30 23:40] VITALS: BP 141/80
[2025-07-01] MEDS: UNASYN IV ×4 (02:13→20:21)
[2025-07-01 07:05] VITALS: BP 129/83
[2025-07-01 08:28] LABS: ALT (SGPT) 23 U/L (0-50); AST (SGOT) 52 U/L (17-59); Albumin 2.6 g/dl (3.5-5.0); Alkaline Phosphatase 91 U/L (38-126); Blood Urea Nitrogen 10 mg/dl (9-20); Calcium 7.8 mg/dl (8.4-10.2); Carbon Dioxide 23 mmol/L (22-30); Chloride 107 mmol/L (98-107); Estimated Creatinine Clearance 89 ml/min; Glucose 107 mg/dl (70-99); Potassium 3.5 mmol/L (3.5-5.1); Sodium 137 mmol/L (135-145); Total Protein 5.6 g/dl (6.3-8.2); eGFR > 60.00
[2025-07-01] MEDS: CYANOCOBALAMIN 1000 MCG IM (08:30)
[2025-07-01] MEDS: MUCINEX 600 MG PO ×2 (08:31→20:31)
[2025-07-01] MEDS: SINEMET 10-100 1 TABLET PO ×3 (08:31→21:29)
[2025-07-01] MEDS: FLUSH (NSS) 1 FLUSH IV ×2 (08:32→13:25)
[2025-07-01] MEDS: LOW STRENGTH ASPIRIN 81 MG PO (08:32)
[2025-07-01] MEDS: MIRALAX PO (08:33)
[2025-07-01 08:47] LABS: Hematocrit 31.4 % (39.0-52.0); Hemoglobin 10.8 g/dL (13.0-18.0); Mean Corp Hgb Conc. 34.4 g/dL (33.0-37.0); Mean Corpuscular Volume 78.1 fL (80.0-94.0); Nucleated Red Blood Cells % 0 % (-); Platelet Count 534 10^3/uL (130-400); Red Cell Dist. Width 14.1 % (11.5-14.5)
--- NOTE | 2025-07-01 09:07 | W.PN.HOSP.TC ---
Today's Communication/Plan
-
no fevers, WBC normalized, fluid Cx still neg - cont empiric Unasyn
regular diet
Assessment / Plan
Assessment / Plan
65yo M with cognitive impairment, Parkinson, HTN, HLD, CVA with residual R sided weakness and dysphagia brought by son due to declining status after his recent stroke 6 months ago. Found possible aspiration pneumonia and loculated L large pleural
effusion
A/P:
#sepsis on admission with Acute hypoxic insufficiency probably 2/2 complicated pneumonia with unspecified organism, possible aspiration
#Parapneumonic effusion, empyema
#Leukocytosis
CT with large L effusion: s/p chest tube on 06/29/25, Cx pending
ph <6.8, large amount of WBC and high LDH - empyema by definition
MRSA screen neg - stop Doxy
Bcx NTD
switch to Unasyn on 06/28/25
Pulm consult
wean off O2
ProBNP low
#Dysphagia
with concern for aspiration pneumonia - VSE - no signs of aspiration, cont regular diet as agreed with PRODUCTION EDITOR
#Elevated ddimer
#Elevated ferritin
acute phase reactant 2/2 pneumonia
#HX of CVA with residual R sided weakness and dysphagia
PRODUCTION EDITOR advised regular diet
ASA, statin
#Reactive thrombocytosis
follow CBC
#Elevated troponin
thought to be 2/2 non-ischemic myocardial injury
cannot exclude 2/2 hypoxia
follow trop - decreased to minimal 0.545-0.626-0.325-0.041
EKG with no overt TWI or ST changes concerning for ACS
Echo:Normal biventricular size and function without regional wall motion abnormalities, EF 60-65%, minimal pericardial effusion
#Stage 1 sacrum pressure injury, POA
#Stage 1 bilateral heels pressure injury, POA
Wound care
#Cognitive impairment vs dementia
poor historian
#Hyponatremia
suspect 2/2 pulmonary disease
Improved on FR - liberalize fluid intake
cont to follow BMP
#Ambulatory deficiency
PT/OT recommended STR
#Hx of essential HTN, now with episode of hypotension
BP acceptable with cessation of Norvasc
#Rhabdomyolysis
2/2 falls
improved
stop IVF
#microcytic anemia
check iron, TIBC, ferritin
#Relative b12 deficiency
supplement
#HLD
#parkinsons
cont statin, sinemet
DVT ppx Lovenox
DNR/DNI
I have spent at least 51min reviewing chart, test results, communication with consultants and family and providing direct patient care
Anticipated Discharge: > 48 hours
Subjective/Interval History
-
Date of Service: July 01, 2025
Objective Data
-
Labs:
Laboratory Results
07/01/25
06:57
WBC 8.3
Hgb 10.8 L
Hct 31.4 L
Plt Count 534 H D
Sodium 137
Potassium 3.5
Chloride 107
Carbon Dioxide 23
BUN 10
Creatinine 0.5 L
Glucose 107 H
Calcium 7.8 L
Total Bilirubin 0.5
AST 52
ALT 23
Alkaline Phosphatase 91
Vital Signs:
Vital Signs
Temp Pulse Resp BP Pulse Ox
99 F 77 21 141/80 94
06/30/25 23:40 06/30/25 23:40 06/30/25 23:40 06/30/25 23:40 07/01/25 08:28
I&O
06/30/25 07/01/25 07/02/25
06:59 06:59 06:59
Intake Total 420 / 420 1080 / 1080
Output Total 1040 / 1040 450 / 450
Balance -620 / -620 630 / 630
Review of Systems
-
History Source: Patient
All other systems: Reviewed and negative
Physical Exam
-
General: No Apparent Distress
HEENT: Normocephalic
Respiratory: Clear to Auscultation
GI: Soft, Nontender and Nondistended
Neuro: Awake, Alert, Oriented and AO x 3
Psych: Calm
--- NOTE | 2025-07-01 09:14 | W.PN.PUL3 ---
Today's Communication / Plan
-
Output diminished overnight, will consult IR for lytic therapy application
He otherwise remains stable, no new complaints
Continue IV abx, likey to need PICC and 6 week course
Will recheck CXR in AM
Assessment
-
Patient is a 65-year-old male with a past medical history of hypertension, hyperlipidemia, Parkinson's disease, stroke, and dysphagia who presents with generalized weakness and decreased PO intake. He had reportedly fall out of bed and could not
get up. He had a stroke in December 2024, and was noted to have dysphagia. He was discharged from [facility] on a regular diet. Son reports that patient complained about difficulty swallowing the last few days. CXR completed on arrival with large L
sided PNA, chest tube placed by IR on 06/29/25. We are consulted for evaluation 06/29/25.
Large R pleural effusion w/ loculations s/p chest tube placement 06/29/25
Suspect chronic aspiration PNA
Leukocytosis
Anemia, acute--likely iron deficiency
Metabolic acidosis
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
Hypercholesterolemia
Active tobacco use disorder
Progressive expressive aphasia with cognitive decline and progressive ambulatory dysfunction likely due to subacute left MCA infarct with parkinsonism
Chronic back pain
Plan
No oxygen was needed on admission, currently saturating >90% on RA
Prior history of lung disease is NOT noted--was a former smoker, of 30 PY quit in december
At risk for COPD, never had PFTs
Suspect patient has severe aspiration PNA given recent CVA
CXR/CT obtained indicating large pleural effusion
s/p chest tube placement by IR
Chemistry: pH <6.8 - wbc 3953 - glu <30 - ldh 2796--consistent with empyema
Culture negative, cyto pending
Other imaging reviewed for comparison, not present on CXR 06/25 to the same degree
Repeat CXR showing mild improvement but still remains large
Output >1L thus far, overnight diminished output, will apply lytics today
Agree with IV abx --may eventually need PICC placement with 6 week course
Consider ID consult
Speech following
VSE 06/29/25- Patient presents with a grossly functional oral/pharyngeal swallow despite mild lingual and pharyngeal weakness and disorganized initiation with oral transfer. No persistent laryngeal penetration or aspiration identified but risk
elevated given risk factors including but not limited to Parkinson's disease, current respiratory illness and deconditioning. Trace to minimal pharyngeal stasis cleared with secondary swallow. Esophagus with retained contrast mostly cleared
following liquid wash.
Aspiration precautions
Follow up diet recs per team
Prior ECHO results are reviewed indicating stable function
Chemistry suggestive of infection
Smoking history noted--30 pack years noted
At risk for lung disease, await path from fluid as well
Smoking cessation encouraged
Poor PO intake, will need nutrition consult likely
We will follow
Diagnostic Data
Chest X-Ray:
CT head 01/05/2025: Possible small areas of acute/subacute infarcts in the left frontoparietal lobe. MRI would be of greater sensitivity.
CTA Head/Neck 01/05/2025: No significant vascular occlusion, aneurysm or dissection.
CHEST 06/28/25- No CTA evidence for an acute pulmonary thromboembolism. Large left pleural effusion with complete opacification of the left hemithorax. Compressive atelectasis of the entire left lung.
Mildly enlarged right hilar and subcarinal lymph nodes, nonspecific.
Echo: 06/28/25- 1. TDS. In limited views. Normal biventricular size and function without regional wall motion abnormalities.
2. LVEF is 60-65% by visual estimation. Diastolic function indeterminate.
3. No significant valvular disease. Normal estimated PASP at 24 mmHg.
4. Small pericardial effusion. Large pleural effusions.
5. Compared to prior from January 06, 2025, new small pericardial effusion and new large pleural effusions.
PFT's:
Reports and relevant images were personally reviewed.
Total time spent on this consultation __51__ minutes which includes review of history, physical exam, medications, laboratory data, personal review of imaging, extensive review of outpatient records, discussion with care team and respiratory therapy.
Subjective Data
-
Date of Service:
Date of Service: July 01, 2025
Chief Complaint: Pulmonary Follow Up
Subjective:
Output minimal overnight, he has no new complaints
Remains stable on RA
Sitting in chair today
Objective Data
Data Reviewed
Vital Signs / I&O / Oxygen:
Vital Signs
Temp Pulse Resp BP Pulse Ox
97.8 F 84 18 129/83 94
07/01/25 07:05 07/01/25 07:05 07/01/25 07:05 07/01/25 07:05 07/01/25 08:28
Intake and Output
06/30/25 07/01/25 07/02/25
06:59 06:59 06:59
Intake Total 420 / 420 1080 / 1080
Output Total 1040 / 1040 450 / 450
Balance -620 / -620 630 / 630
SaO2 94
Nasal Cannula flow liters per 2
minute
Physical Exam
General: Comfortable and Other (NAD, thin/chronically ill appearing)
HEENT: Normocephalic, Anicteric and Moist Mucous Membranes
Cardiovascular: S1-S2 and Regular Rhythm
Respiratory: Clear, Non-Labored Respirations and Other (decreased BS on the L)
GI: Soft, Non Distended and Non Tender
Neurology: Awake, Alert, Oriented and Other (L sided weakness, gaze preference on R)
Skin: Warm, Dry and Good Color
Labs/Micro/Reports
Lab Data
07/01/25 06:57
07/01/25 06:57
Microbiology
06/25/25 10:46 Blood/Venous Blood Culture - Final
No Growth - Final Report
06/25/25 10:36 Blood/Venous Blood Culture - Final
No Growth - Final Report
06/29/25 07:06 Pleural Fluid Body Fluid Culture - Preliminary
No Growth After 18-24 Hours
06/29/25 07:06 Pleural Fluid Gram Stain - Preliminary
[2025-07-01 09:50] VITALS: BP 143/86; PULSE 86
[2025-07-01 09:53] VITALS: BP 143/86; PULSE 71; O2SAT 97
[2025-07-01 11:26] VITALS: BP 118/71
--- NOTE | 2025-07-01 14:01 | PN.IRAD.UPD ---
Update Note - IRAD
- -
8mg TPA,5 mg DORNASE instilled via left chest tube at bedside. Chest tube clamped at 1355. Rn notified. Patient tolerated procedure well.
[2025-07-01] MEDS: FERRLECIT 110 MG IV (15:00)
[2025-07-01 15:49] VITALS: BP 126/76
--- NOTE | 2025-07-01 16:50 | PTCARENOTE ---
Pt awake and alert, oriented x3, irritable/angry, frequently cursing. NOLAND slowly /stiffly; needs encouragement to participate in care/OOB activity. VSS. Currently on room air- pulse ox 93%, pt with (+) slight RABAGO; denies SOB. Lt CT unclamped @
1600; wall suction resumed; CT draining blood-tinged/straw colored fluid at present. CT dsg D./I. Abd soft, rounded, sharon PO; incont BM. Condom cath P/I dalton urine. Resting in chair at present. Will continue to monitor.
[2025-07-01] MEDS: LIPITOR 40 MG PO (17:37)
[2025-07-01] MEDS: LOVENOX 40 MG SC (17:37)
[2025-07-01] MEDS: SENOKOT-S PO (20:14)
[2025-07-01 23:13] VITALS: BP 122/79
[2025-07-02] MEDS: UNASYN IV ×4 (02:24→19:32)
[2025-07-02 07:24] VITALS: BP 134/73
[2025-07-02] MEDS: SINEMET 10-100 1 TABLET PO ×3 (08:06→22:31)
[2025-07-02] MEDS: MUCINEX 600 MG PO ×2 (08:06→19:32)
[2025-07-02] MEDS: LOW STRENGTH ASPIRIN 81 MG PO (08:06)
[2025-07-02] MEDS: CYANOCOBALAMIN 1000 MCG IM (08:07)
[2025-07-02] MEDS: MIRALAX 17 GRAMS PO (08:12)
[2025-07-02 08:48] LABS: Hematocrit 30.6 % (39.0-52.0); Hemoglobin 10.3 g/dL (13.0-18.0); Mean Corp Hgb Conc. 33.7 g/dL (33.0-37.0); Mean Corpuscular Volume 77.5 fL (80.0-94.0); Nucleated Red Blood Cells % 0 % (-); Platelet Count 540 10^3/uL (130-400); Red Cell Dist. Width 14.1 % (11.5-14.5)
--- NOTE | 2025-07-02 09:10 | W.PN.PUL3 ---
Today's Communication / Plan
-
Status post lytic therapy, with significant output about 2 L
Chest x-ray this a.m. significantly improved
Monitor output another 24 hours, if doing well may consider discontinuation of chest tube over the weekend
Continue IV antibiotics, likely to need set up as outpatient for 6-week course
PT OT eval ongoing
Assessment
-
Patient is a 65-year-old male with a past medical history of hypertension, hyperlipidemia, Parkinson's disease, stroke, and dysphagia who presents with generalized weakness and decreased PO intake. He had reportedly fall out of bed and could not
get up. He had a stroke in December 2024, and was noted to have dysphagia. He was discharged from [facility] on a regular diet. Son reports that patient complained about difficulty swallowing the last few days. CXR completed on arrival with large L
sided PNA, chest tube placed by IR on 06/29/25. We are consulted for evaluation 06/29/25.
Large R pleural effusion w/ loculations s/p chest tube placement 06/29/25
Suspect chronic aspiration PNA
Leukocytosis
Anemia, acute--likely iron deficiency
Metabolic acidosis
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
Hypercholesterolemia
Active tobacco use disorder
Progressive expressive aphasia with cognitive decline and progressive ambulatory dysfunction likely due to subacute left MCA infarct with parkinsonism
Chronic back pain
Plan
No oxygen was needed on admission, currently saturating >90% on RA
Prior history of lung disease is NOT noted--was a former smoker, of 30 PY quit in december
At risk for COPD, never had PFTs
Suspect patient has severe aspiration PNA given recent CVA
CXR/CT obtained indicating large pleural effusion
s/p chest tube placement by IR
Chemistry: pH <6.8 - wbc 3953 - glu <30 - ldh 2796--consistent with empyema
Culture negative, cyto negative for malignancy but with heavy neutrophil predominant inflammation
Other imaging reviewed for comparison, not present on CXR 06/25 to the same degree
Repeat CXR showing mild improvement but still remains large
Output >1L initially, overnight diminished output
s/p lytics 07/01, output overnight ~2 L
Chest x-ray this a.m. with significant improvement
Would monitor another 24 hours, if minimal output--may consider discontinuing chest tube
Agree with IV abx --may eventually need PICC placement with 6 week course
Consider ID consult
Speech following
VSE 06/29/25- Patient presents with a grossly functional oral/pharyngeal swallow despite mild lingual and pharyngeal weakness and disorganized initiation with oral transfer. No persistent laryngeal penetration or aspiration identified but risk
elevated given risk factors including but not limited to Parkinson's disease, current respiratory illness and deconditioning. Trace to minimal pharyngeal stasis cleared with secondary swallow. Esophagus with retained contrast mostly cleared
following liquid wash.
Aspiration precautions
Follow up diet recs per team
Prior ECHO results are reviewed indicating stable function
Chemistry suggestive of infection
Smoking history noted--30 pack years noted
At risk for lung disease, await path from fluid as well
Smoking cessation encouraged
Poor PO intake, will need nutrition consult likely
Encourage P.o. intake
PT OT evals
Diagnostic Data
Chest X-Ray:
CT head 01/05/2025: Possible small areas of acute/subacute infarcts in the left frontoparietal lobe. MRI would be of greater sensitivity.
CTA Head/Neck 01/05/2025: No significant vascular occlusion, aneurysm or dissection.
CHEST 06/28/25- No CTA evidence for an acute pulmonary thromboembolism. Large left pleural effusion with complete opacification of the left hemithorax. Compressive atelectasis of the entire left lung.
Mildly enlarged right hilar and subcarinal lymph nodes, nonspecific.
Echo: 06/28/25- 1. TDS. In limited views. Normal biventricular size and function without regional wall motion abnormalities.
2. LVEF is 60-65% by visual estimation. Diastolic function indeterminate.
3. No significant valvular disease. Normal estimated PASP at 24 mmHg.
4. Small pericardial effusion. Large pleural effusions.
5. Compared to prior from January 06, 2025, new small pericardial effusion and new large pleural effusions.
PFT's:
Reports and relevant images were personally reviewed.
Total time spent on this consultation __51__ minutes which includes review of history, physical exam, medications, laboratory data, personal review of imaging, extensive review of outpatient records, discussion with care team and respiratory therapy.
Subjective Data
-
Date of Service:
Date of Service: July 02, 2025
Chief Complaint: Pulmonary Follow Up
Subjective:
Status post lytics 07/01, with significant output ~2L
Doing well, remained stable on room air
No new complaints
Objective Data
Data Reviewed
Vital Signs / I&O / Oxygen:
Vital Signs
Temp Pulse Resp BP Pulse Ox
98.5 F 73 16 134/73 96
07/02/25 07:24 07/02/25 07:24 07/02/25 07:24 07/02/25 07:24 07/02/25 07:24
Intake and Output
07/01/25 07/02/25 07/03/25
06:59 06:59 06:59
Intake Total 1080 / 1080 1730 / 1730
Output Total 450 / 450 1954
Balance 630 / 630 -225 / -225
SaO2 96
Nasal Cannula flow liters per 1
minute
Physical Exam
General: Comfortable and Other (NAD, thin/chronically ill appearing)
HEENT: Normocephalic, Anicteric and Moist Mucous Membranes
Cardiovascular: S1-S2 and Regular Rhythm
Respiratory: Clear, Non-Labored Respirations and Other (decreased BS on the L)
GI: Soft, Non Distended and Non Tender
Neurology: Awake, Alert, Oriented and Other (L sided weakness, gaze preference on R)
Skin: Warm, Dry and Good Color
Labs/Micro/Reports
Lab Data
07/02/25 08:25
Microbiology
06/29/25 07:06 Pleural Fluid Body Fluid Culture - Final
No Growth After 72 Hours
06/29/25 07:06 Pleural Fluid Gram Stain - Final
06/25/25 10:46 Blood/Venous Blood Culture - Final
No Growth - Final Report
06/25/25 10:36 Blood/Venous Blood Culture - Final
No Growth - Final Report
[2025-07-02 09:43] LABS: ALT (SGPT) 21 U/L (0-50); AST (SGOT) 40 U/L (17-59); Albumin 2.5 g/dl (3.5-5.0); Alkaline Phosphatase 78 U/L (38-126); Blood Urea Nitrogen 13 mg/dl (9-20); Calcium 7.7 mg/dl (8.4-10.2); Carbon Dioxide 27 mmol/L (22-30); Chloride 106 mmol/L (98-107); Estimated Creatinine Clearance 89 ml/min; Glucose 106 mg/dl (70-99); Potassium 3.5 mmol/L (3.5-5.1); Sodium 135 mmol/L (135-145); Total Protein 5.2 g/dl (6.3-8.2); eGFR > 60.00
--- NOTE | 2025-07-02 10:11 | CM ---
Chest tube remains TPA administrated yesterday.
Watch for terminal system operator IV antibiotics need.
PT OT indicated SNF [place].
Kamaljit son requested [place] [facility] [place].Will need update to SNF via care port.
Room air Pox 96%.
PLAN To SNF [place].
--- NOTE | 2025-07-02 10:50 | W.PN.HOSP.TC ---
Today's Communication/Plan
-
cont unasyn pending ID
await for removal of chest tube before d/c
Assessment / Plan
Assessment / Plan
65yo M with cognitive impairment, Parkinson, HTN, HLD, CVA with residual R sided weakness and dysphagia brought by son due to declining status after his recent stroke 6 months ago. Found possible aspiration pneumonia and loculated L large pleural
effusion
A/P:
#sepsis on admission with Acute hypoxic insufficiency probably 2/2 complicated pneumonia with unspecified organism, possible aspiration
#Parapneumonic effusion, empyema
#Leukocytosis
CT with large L effusion: s/p chest tube on 06/29/25, Cx pending
ph <6.8, large amount of WBC and high LDH - empyema by definition
MRSA screen neg - stop Doxy
Bcx NTD
switch to Unasyn on 06/28/25
Pulm consult for chest tube mgmt
ID consult for Abx
wean off O2
ProBNP low
#Dysphagia
with concern for aspiration pneumonia - VSE - no signs of aspiration, cont regular diet as agreed with TYPESETTER PERFORATOR OPERATOR
#Elevated ddimer
#Elevated ferritin
acute phase reactant 2/2 pneumonia
#HX of CVA with residual R sided weakness and dysphagia
TYPESETTER PERFORATOR OPERATOR advised regular diet
ASA, statin
#Reactive thrombocytosis
follow CBC
#Elevated troponin
thought to be 2/2 non-ischemic myocardial injury
cannot exclude 2/2 hypoxia
follow trop - decreased to minimal 0.545-0.626-0.325-0.041
EKG with no overt TWI or ST changes concerning for ACS
Echo:Normal biventricular size and function without regional wall motion abnormalities, EF 60-65%, minimal pericardial effusion
#Stage 1 sacrum pressure injury, POA
#Stage 1 bilateral heels pressure injury, POA
Wound care
#Cognitive impairment vs dementia
poor historian
#Hyponatremia
suspect 2/2 pulmonary disease
Improved on FR - liberalize fluid intake
cont to follow BMP
#Ambulatory deficiency
PT/OT recommended STR
#Hx of essential HTN, now with episode of hypotension
BP acceptable with cessation of Norvasc
#Rhabdomyolysis
2/2 falls
improved
stop IVF
#microcytic anemia
check iron, TIBC, ferritin
#Relative b12 deficiency
supplement
#HLD
#parkinsons
cont statin, sinemet
DVT ppx Lovenox
DNR/DNI
I have spent at least 36min reviewing chart, test results, communication with consultants and family and providing direct patient care
Anticipated Discharge: > 48 hours
Subjective/Interval History
-
Date of Service: July 02, 2025
Objective Data
-
Labs:
Laboratory Results
07/02/25
08:25
WBC 7.5
Hgb 10.3 L
Hct 30.6 L
Plt Count 540 H
Sodium 135
Potassium 3.5
Chloride 106
Carbon Dioxide 27
BUN 13
Creatinine 0.5 L
Glucose 106 H
Calcium 7.7 L
Total Bilirubin 0.5
AST 40
ALT 21
Alkaline Phosphatase 78
Vital Signs:
Vital Signs
Temp Pulse Resp BP Pulse Ox
98.5 F 73 16 134/73 96
07/02/25 07:24 07/02/25 07:24 07/02/25 07:24 07/02/25 07:24 07/02/25 08:00
I&O
07/01/25 07/02/25 07/03/25
06:59 06:59 06:59
Intake Total 1080 / 1080 1730 / 1730
Output Total 450 / 450 1954
Balance 630 / 630 -225 / -225
Review of Systems
-
Unable to obtain full review of systems at this time due to: Dementia
History Source: Patient
All other systems: Reviewed and negative
Physical Exam
-
General: No Apparent Distress
HEENT: Normocephalic
GI: Soft, Nontender and Nondistended
Skin: Warm
Neuro: Awake and Alert
Psych: Apparent Dementia
[2025-07-02] MEDS: CALCIUM GLUCONATE 100 IV (11:27)
[2025-07-02] MEDS: FERRLECIT 110 MG IV (14:52)
[2025-07-02 15:15] VITALS: BP 126/65
--- NOTE | 2025-07-02 15:32 | CON.ID ---
Consultation
-
Date/Time Consultation Requested: 07/02/2025 0859
Date/Time Consultation Performed: 07/02/2025 1530
Requesting Provider: Dr. Leiva
Performing Provider: Dr. Genao
Reason for Consultation: Empyema; antibiotic management
Chief Complaint / Past History
History of Present Illness
Michael Rosas is a 65-year-old man being evaluated at the request of Dr. Leiva in regards to antibiotic management of empyema. History is obtained from chart review, along with patient interview.
The patient does not have a significant past medical history, and presented to [facility] ER on 06/25/2025 for evaluation of generalized fatigue and reported failure to thrive. According to reviewed notes, the patient's son reported that
over several days prior to admission patient had increasingly poor appetite, and multiple minor falls. Additionally, mild cough was noted prior to admission, but the patient denied feeling short of breath.
Workup in the ER revealed a left lung base infiltrate suspicious for pneumonia, and a subsequent CT scan revealed a large left pleural effusion with compressive atelectasis. Fluid was aspirated and found to be compatible with empyema although
cultures thus far have been negative. Infectious Diseases is asked to comment upon further antimicrobial management.
During the hospital stay, the patient has remained afebrile. Initial marked leukocytosis has resolved. At this time, he denies any prior fevers or chills. He notes cough although it is nonproductive. A chest tube remains in place at this time.
Past History
Additional Past Medical History:
HTN
Hx CVA (mild residual right weakness)
Dysphagia
Chronic back pain
Additional Past Surgical History:
Spine surgery
Allergy History:
No Known Allergies Allergy (Verified 06/25/25 09:58)
Medications Reviewed: Yes
Current Antibiotics:
Unasyn 3 gm IV q.6 hours (d#8 abx)
Social History
Tobacco: Former Smoker
Alcohol: None
Drug: None
Employment: Retired
Family History
Family History: Not Pertinent
Review of Systems
Vital Signs
Temp Pulse Resp BP Pulse Ox
98.5 F 73 16 134/73 96
07/02/25 07:24 07/02/25 07:24 07/02/25 07:24 07/02/25 07:24 07/02/25 08:00
Physical Exam
Physical Exam
Constitutional: No Acute Distress, Comfortable, Chronically Ill and Non-toxic
Eyes: No Conjunctival Hemorrhage and Sclera Anicteric
Oral: No Thrush and No Ulcers
Cardiovascular: S1/S2; Negative S3/S4
Pulmonary: Rhonchi (Few; scattered), Coarse, Non Labored and Other (Left-sided chest tube in place. Serous fluid)
Gastrointestinal: Soft, Non Tender, Non Distended and Normal Bowel Sounds
Genito-Urinary: Parra and Other (Dark urine)
Extremities: Edema; Negative Cyanosis, Erythema, Splinter Hemorrhage or Venous Insufficiency
Skin: Negative Rash or Jaundice
Neurological: Awake and Alert; Negative Meningeal Signs
Psychological: Calm
Lab / Diagnostic Study Results
07/02/25 08:25
07/02/25 08:25
Abs Immat Gran (auto) 0.1 10^3/uL (0-0.05) H 07/02/25 08:25
Absolute Neuts (auto) 6.5 10^3/uL (1.4-6.5) 07/02/25 08:25
Absolute Lymphs (auto) 0.6 10^3/uL (1.2-3.4) L 07/02/25 08:25
Absolute Monos (auto) 0.3 10^3/uL (0.1-0.6) 07/02/25 08:25
Absolute Basos (auto) 0.0 10^3/uL (0-0.2) 07/02/25 08:25
Immature Gran % 0.9 % (0-0.5) H 07/02/25 08:25
Neutrophils % 86.8 % (42.2-75.2) H 07/02/25 08:25
Lymphocytes % 7.3 % (20.5-51.1) L 07/02/25 08:25
Monocytes % 4.0 % (1.7-9.3) 07/02/25 08:25
Eosinophils % 0.7 % (0-6) 07/02/25 08:25
Basophils % 0.3 % (0-2) 07/02/25 08:25
PT 17.2 Sec (11.4-14.6) H 06/25/25 10:36
INR 1.38 06/25/25 10:36
Lactic Acid 1.3 mmol/L (0.7-2.0) 06/25/25 16:15
Ur Squamous Epith Cells 3-5 /LPF (Few) 06/25/25 12:11
Microbiology Results
Micro:
06/29/25 07:06 Body Fluid Culture - Final
Pleural Fluid No Growth After 72 Hours
Gram Stain - Final
06/25/25 10:46 Blood Culture - Final
Blood/Venous No Growth - Final Report
06/25/25 10:36 Blood Culture - Final
Blood/Venous No Growth - Final Report
06/25/25 16:15 Nasal Screen MRSA (PCR) - Final
Nose MRSA not detected - performed by PCR methodology.
06/25/25 13:42 Legionella Urinary Antigen - Final
Urine Negative for Legionella pneumophila Serogroup 1 antigen.
A negative result does not rule out the possiblity of
Legionella infection due to other serogroups or species of
Legionella. Clinical correlation is recommended.
Streptococcus pneumoniae Antigen (M - Final
Negative for Streptococcus pneumoniae antigen.
A negative result does not exclude infection with
Streptococcus pneumoniae. Clinical correlation is
recommended.
06/25/25 10:36 Influenza Types A & B (FER) - Final
Nasal Swab Negative for Influenza A & B, NAAT
Negative results must be combined with clinical observations
and patient history.
Nucleic Acid Amplification test (NAAT)performed on the
SHEEX platform.
Imaging:
07/02/2025 CXR (portable): marked decreased left chest opacification. No pleural effusion or pneumothorax. A left basilar chest tube remains in place.
06/28/2025 CT chest (PE study): no evidence for acute pulmonary thromboembolism. Large left pleural effusion with complete opacification of the left hemothorax noted. There is compressive atelectasis of the entire left lung. Mildly enlarged right
hilar and subcarinal lymph nodes noted.
Assessment / Plan
Left empyema
Leukocytosis; improved
PNA
HTN
Hx CVA (mild residual right weakness)
Dysphagia
Chronic back pain
Recommendations:
Pleural fluid cultures noted to be negative, although patient on several days of IV antibiotics prior to acquisition of sample which may have sterilized the cultures.
Continue with Unasyn for the present given overall clinical improvement.
Patient will likely need a 3 to 6-week course of IV antibiotics in the treatment of empyema.
Depending upon disposition (SNF vs home), transition to once daily or ertapenem may be an option.
Continue to monitor white count and temperature curve. Follow chest tube output.
[2025-07-02] MEDS: LOVENOX 40 MG SC (17:10)
[2025-07-02] MEDS: LIPITOR 40 MG PO (17:11)
[2025-07-02] MEDS: SENOKOT-S 2 TABLET PO (22:31)
[2025-07-02 23:21] VITALS: BP 150/80
[2025-07-03] MEDS: UNASYN IV ×4 (02:20→19:51)
[2025-07-03 07:00] VITALS: BP 152/76
[2025-07-03] MEDS: MIRALAX 17 GRAMS PO (08:23)
[2025-07-03] MEDS: SINEMET 10-100 1 TABLET PO ×3 (08:23→21:29)
[2025-07-03] MEDS: LOW STRENGTH ASPIRIN 81 MG PO (08:23)
[2025-07-03] MEDS: MUCINEX 600 MG PO ×2 (08:23→19:58)
[2025-07-03] MEDS: FLUSH (NSS) 1 FLUSH IV ×3 (08:24→14:49)
[2025-07-03] MEDS: CYANOCOBALAMIN 1000 MCG IM (08:24)
[2025-07-03 09:40] LABS: Hematocrit 30.7 % (39.0-52.0); Hemoglobin 10.3 g/dL (13.0-18.0); Mean Corp Hgb Conc. 33.6 g/dL (33.0-37.0); Mean Corpuscular Volume 77.7 fL (80.0-94.0); Nucleated Red Blood Cells % 0 % (-); Platelet Count 579 10^3/uL (130-400); Red Cell Dist. Width 14.2 % (11.5-14.5)
[2025-07-03 10:11] LABS: ALT (SGPT) < 10 U/L (0-50); AST (SGOT) 46 U/L (17-59); Albumin 2.5 g/dl (3.5-5.0); Alkaline Phosphatase 77 U/L (38-126); Blood Urea Nitrogen 10 mg/dl (9-20); Calcium 8.1 mg/dl (8.4-10.2); Carbon Dioxide 27 mmol/L (22-30); Chloride 104 mmol/L (98-107); Estimated Creatinine Clearance 89 ml/min; Glucose 97 mg/dl (70-99); Potassium 3.3 mmol/L (3.5-5.1); Sodium 134 mmol/L (135-145); Total Protein 5.5 g/dl (6.3-8.2); eGFR > 60.00
--- NOTE | 2025-07-03 10:52 | W.PN.HOSP.TC ---
Today's Communication/Plan
-
cont tube mgmt
cont Unasyn
Assessment / Plan
Assessment / Plan
65yo M with cognitive impairment, Parkinson, HTN, HLD, CVA with residual R sided weakness and dysphagia brought by son due to declining status after his recent stroke 6 months ago. Found possible aspiration pneumonia and loculated L large pleural
effusion
A/P:
#sepsis on admission with Acute hypoxic insufficiency probably 2/2 complicated pneumonia with unspecified organism, possible aspiration
#Parapneumonic effusion, empyema
#Leukocytosis
CT with large L effusion: s/p chest tube on 06/29/25, Cx NTD
ph <6.8, large amount of WBC and high LDH - empyema by definition
MRSA screen neg - stop Doxy
Bcx NTD
switch to Unasyn on 06/28/25
Pulm consult for chest tube mgmt
ID consult for Abx
wean off O2
ProBNP low
#Dysphagia
with concern for aspiration pneumonia - VSE - no signs of aspiration, cont regular diet as agreed with VEGETABLE WASHER
#Elevated ddimer
#Elevated ferritin
acute phase reactant 2/2 pneumonia
#HX of CVA with residual R sided weakness and dysphagia
VEGETABLE WASHER advised regular diet
ASA, statin
#Reactive thrombocytosis
follow CBC
#Elevated troponin
thought to be 2/2 non-ischemic myocardial injury
cannot exclude 2/2 hypoxia
follow trop - decreased to minimal 0.545-0.626-0.325-0.041
EKG with no overt TWI or ST changes concerning for ACS
Echo:Normal biventricular size and function without regional wall motion abnormalities, EF 60-65%, minimal pericardial effusion
#Stage 1 sacrum pressure injury, POA
#Stage 1 bilateral heels pressure injury, POA
Wound care
#Cognitive impairment vs dementia
poor historian
#Hyponatremia
suspect 2/2 pulmonary disease
Improved on FR - liberalize fluid intake
cont to follow BMP
#Ambulatory deficiency
PT/OT recommended STR
#Hx of essential HTN, now with episode of hypotension
BP acceptable with cessation of Norvasc
#Rhabdomyolysis
2/2 falls
improved
stop IVF
#microcytic anemia
check iron, TIBC, ferritin
#Relative b12 deficiency
supplement
#HLD
#parkinsons
cont statin, sinemet
DVT ppx Lovenox
DNR/DNI
I have spent at least 36min reviewing chart, test results, communication with consultants and family and providing direct patient care
Anticipated Discharge: > 48 hours
Subjective/Interval History
-
Date of Service: July 03, 2025
Objective Data
-
Labs:
Laboratory Results
07/03/25
09:24
WBC 7.8
Hgb 10.3 L
Hct 30.7 L
Plt Count 579 H
Sodium 134 L
Potassium 3.3 L
Chloride 104
Carbon Dioxide 27
BUN 10
Creatinine 0.4 L
Glucose 97
Calcium 8.1 L
Total Bilirubin 0.7
AST 46
ALT < 10
Alkaline Phosphatase 77
Vital Signs:
Vital Signs
Temp Pulse Resp BP Pulse Ox
98 F 73 18 152/76 95
07/03/25 07:00 07/03/25 07:00 07/03/25 07:00 07/03/25 07:00 07/03/25 08:18
I&O
07/02/25 07/03/25 07/04/25
06:59 06:59 06:59
Intake Total 1730 / 1730 2610 / 2610
Output Total 1954 795 / 795
Balance -225 / -225 1814
Review of Systems
-
History Source: Patient
All other systems: Reviewed and negative
Physical Exam
-
General: Comfortable
HEENT: Normocephalic
Respiratory: Clear to Auscultation
Cardiac: Regular Rhythm
GI: Soft, Nontender and Nondistended
Rectal: Brown
Genito-urinary: No Costovertebral Tender
Musculoskeletal: No Clubbing, No Cyanosis and No Edema
Neuro: Awake, Alert, Oriented and AO x 3
Psych: Calm
--- NOTE | 2025-07-03 12:24 | W.PN.PUL3 ---
Today's Communication / Plan
-
- Chest x-ray portable today
- If continues to improve, will DC chest tube
Assessment
-
Patient is a 65-year-old male with a past medical history of hypertension, hyperlipidemia, Parkinson's disease, stroke, and dysphagia who presents with generalized weakness and decreased PO intake. He had reportedly fall out of bed and could not
get up. He had a stroke in December 2024, and was noted to have dysphagia. He was discharged from [facility] on a regular diet. Son reports that patient complained about difficulty swallowing the last few days. CXR completed on arrival with large L
sided PNA, chest tube placed by IR on 06/29/25. We are consulted for evaluation 06/29/25.
#1. Large Left pleural effusion/Empyema with loculations s/p chest tube placement 06/29/25
- Pleural fluid studies exudative, acidotic fluid with very high LDH suggestive of empyema
- Cultures have stayed negative likely related to prior antibiotic use
- Responded well to tPA/DNase with significant improved opacity.
- 70 cc fluid output over the last 24 hours.
- Will get a chest x-ray today if normal, will consider chest tube removal
- Agree with continuing IV Unasyn, antibiotic duration per infectious disease service
- Underlying aspiration likely etiology
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
Hypercholesterolemia
Active tobacco use disorder
Progressive expressive aphasia with cognitive decline and progressive ambulatory dysfunction likely due to subacute left MCA infarct with parkinsonism
Chronic back pain
Plan
No oxygen was needed on admission, currently saturating >90% on RA
Prior history of lung disease is NOT noted--was a former smoker, of 30 PY quit in december
At risk for COPD, never had PFTs
Suspect patient has severe aspiration PNA given recent CVA
CXR/CT obtained indicating large pleural effusion
s/p chest tube placement by IR
Chemistry: pH <6.8 - wbc 3953 - glu <30 - ldh 2796--consistent with empyema
Culture negative, cyto negative for malignancy but with heavy neutrophil predominant inflammation
Other imaging reviewed for comparison, not present on CXR 06/25 to the same degree
Repeat CXR showing mild improvement but still remains large
Output >1L initially, overnight diminished output
s/p lytics 07/01, output overnight ~2 L
Would monitor another 24 hours, if minimal output--may consider discontinuing chest tube
Agree with IV abx --may eventually need PICC placement with 6 week course
Speech following
VSE 06/29/25- Patient presents with a grossly functional oral/pharyngeal swallow despite mild lingual and pharyngeal weakness and disorganized initiation with oral transfer. No persistent laryngeal penetration or aspiration identified but risk
elevated given risk factors including but not limited to Parkinson's disease, current respiratory illness and deconditioning. Trace to minimal pharyngeal stasis cleared with secondary swallow. Esophagus with retained contrast mostly cleared
following liquid wash.
Aspiration precautions
Follow up diet recs per team
Prior ECHO results are reviewed indicating stable function
Chemistry suggestive of infection
Smoking history noted--30 pack years noted
At risk for lung disease, await path from fluid as well
Smoking cessation encouraged
Poor PO intake, will need nutrition consult likely
Encourage P.o. intake
PT OT evals
Diagnostic Data
Chest X-Ray:
CT head 01/05/2025: Possible small areas of acute/subacute infarcts in the left frontoparietal lobe. MRI would be of greater sensitivity.
CTA Head/Neck 01/05/2025: No significant vascular occlusion, aneurysm or dissection.
CHEST 06/28/25- No CTA evidence for an acute pulmonary thromboembolism. Large left pleural effusion with complete opacification of the left hemithorax. Compressive atelectasis of the entire left lung.
Mildly enlarged right hilar and subcarinal lymph nodes, nonspecific.
Echo: 06/28/25- 1. TDS. In limited views. Normal biventricular size and function without regional wall motion abnormalities.
2. LVEF is 60-65% by visual estimation. Diastolic function indeterminate.
3. No significant valvular disease. Normal estimated PASP at 24 mmHg.
4. Small pericardial effusion. Large pleural effusions.
5. Compared to prior from January 06, 2025, new small pericardial effusion and new large pleural effusions.
PFT's:
Reports and relevant images were personally reviewed.
Total time spent on this consultation __41__ minutes which includes review of history, physical exam, medications, laboratory data, personal review of imaging, extensive review of outpatient records, discussion with care team and respiratory therapy.
Subjective Data
-
Date of Service:
Date of Service: July 03, 2025
Chief Complaint: Pulmonary Follow Up
Subjective:
Patient comfortably sitting in bed in no acute distress.
Review of Systems
Genitourinary: Other (Does not report any shortness of breath or chest pain)
Objective Data
Data Reviewed
Vital Signs / I&O / Oxygen:
Vital Signs
Temp Pulse Resp BP Pulse Ox
98 F 73 18 152/76 95
07/03/25 07:00 07/03/25 07:00 07/03/25 07:00 07/03/25 07:00 07/03/25 08:18
Intake and Output
07/02/25 07/03/25 07/04/25
06:59 06:59 06:59
Intake Total 1730 / 1730 2610 / 2610
Output Total 1954 795 / 795
Balance -225 / -225 1815 / 1815
SaO2 95
Nasal Cannula flow liters per 1
minute
Physical Exam
General: Comfortable and Other (NAD, thin/chronically ill appearing)
HEENT: Normocephalic, Anicteric and Moist Mucous Membranes
Cardiovascular: S1-S2 and Regular Rhythm
Respiratory: Clear, Non-Labored Respirations and Other (Good air entry bilaterally)
GI: Soft, Non Distended and Non Tender
Neurology: Awake, Alert and Other (L sided weakness, gaze preference on R)
Skin: Warm, Dry and Good Color
Labs/Micro/Reports
Lab Data
07/03/25 09:24
07/03/25 09:24
Microbiology
06/29/25 07:06 Pleural Fluid Body Fluid Culture - Final
No Growth After 72 Hours
06/29/25 07:06 Pleural Fluid Gram Stain - Final
06/25/25 10:46 Blood/Venous Blood Culture - Final
No Growth - Final Report
06/25/25 10:36 Blood/Venous Blood Culture - Final
No Growth - Final Report
--- NOTE | 2025-07-03 14:16 | CM ---
CM reviewed chart, care ongoing.
Patient remains on IV antibiotics.
Per Pulm- if continues to improve, will d/c chest tube.
Accepting SNFs: [facility], [facility], [facility], [facility], [place], and [facility].
CM will continue to follow for all discharge planning needs.
Plan; SNF once stable for d/c, no auth required
[2025-07-03] MEDS: FERRLECIT 110 MG IV (14:49)
[2025-07-03 15:00] VITALS: BP 130/68
--- NOTE | 2025-07-03 16:27 | PTCARENOTE ---
Pt AAO x3, frequently angry/irritable, needs much encouragement to participate in OOB activity/ADL's. Pt moans/curses when moved/positioned but offers no specific c/o. NOLAND; Rt arm weak; OOB to chair with assist x2; moves slowly. VSS. On room air-
pulse ox96%, no SOB noted. pt with occ loose cough. Abd soft, rounded, sharon PO, appetite fair. Incont dalton urine; condom cath intact. Lt CT to 20 cm wall suction intact; site care given; draining few ml's sl blood- tinged straw colored fluid.
Resting in bed at present. Will continue to monitor.
[2025-07-03] MEDS: LIPITOR 40 MG PO (17:40)
[2025-07-03] MEDS: LOVENOX 40 MG SC (17:40)
[2025-07-03] MEDS: SENOKOT-S PO (19:58)
[2025-07-03 23:32] VITALS: BP 143/78
[2025-07-04] MEDS: UNASYN IV ×4 (02:20→20:36)
[2025-07-04 07:00] VITALS: BP 161/78
[2025-07-04] MEDS: VITAMIN B-12 1000 MCG PO (08:18)
[2025-07-04] MEDS: MUCINEX 600 MG PO ×2 (08:18→20:45)
[2025-07-04] MEDS: SINEMET 10-100 1 TABLET PO ×3 (08:18→21:11)
[2025-07-04] MEDS: LOW STRENGTH ASPIRIN 81 MG PO (08:18)
[2025-07-04] MEDS: MIRALAX 17 GRAMS PO (08:19)
--- NOTE | 2025-07-04 09:55 | W.PN.HOSP.TC ---
Today's Communication/Plan
-
PICC
cont ABx
Assessment / Plan
Assessment / Plan
65yo M with cognitive impairment, Parkinson, HTN, HLD, CVA with residual R sided weakness and dysphagia brought by son due to declining status after his recent stroke 6 months ago. Found possible aspiration pneumonia and loculated L large pleural
effusion, improving s/p chest tube, however fluid Cx neg (probably due to ABx given prior to thoracentesis).
A/P:
#sepsis on admission with Acute hypoxic insufficiency probably 2/2 complicated pneumonia with unspecified organism, possible aspiration
#Parapneumonic effusion, empyema
#Leukocytosis
CT with large L effusion: s/p chest tube on 06/29/25, Cx NTD
ph <6.8, large amount of WBC and high LDH - empyema by definition
MRSA screen neg - stop Doxy
Bcx NTD
switch to Unasyn on 06/28/25, as per ID - will need up to 6 weeeks Abx - PICC ordered on 07/04/25. Option is Ertapenem upon d/c for convenience of administration
Pulm consult for chest tube mgmt
ID consult for Abx
wean off O2
ProBNP low
#Dysphagia
with concern for aspiration pneumonia - VSE - no signs of aspiration, cont regular diet as agreed with TREATER
#Elevated ddimer
#Elevated ferritin
acute phase reactant 2/2 pneumonia
#HX of CVA with residual R sided weakness and dysphagia
TREATER advised regular diet
ASA, statin
#Reactive thrombocytosis
follow CBC
#Elevated troponin
thought to be 2/2 non-ischemic myocardial injury
cannot exclude 2/2 hypoxia
follow trop - decreased to minimal 0.545-0.626-0.325-0.041
EKG with no overt TWI or ST changes concerning for ACS
Echo:Normal biventricular size and function without regional wall motion abnormalities, EF 60-65%, minimal pericardial effusion
#Stage 1 sacrum pressure injury, POA
#Stage 1 bilateral heels pressure injury, POA
Wound care
#Cognitive impairment vs dementia
poor historian
#Hyponatremia
suspect 2/2 pulmonary disease
Improved on FR - liberalize fluid intake
cont to follow BMP
#Ambulatory deficiency
PT/OT recommended STR
#Hx of essential HTN, now with episode of hypotension
BP acceptable with cessation of Norvasc
#Rhabdomyolysis
2/2 falls
improved
stop IVF
#KEVIN
received IV iron
outpatient GI to be considered by PCP
#Relative b12 deficiency
supplement
#HLD
#Parkinson
cont statin, Sinemet
DVT ppx Lovenox
DNR/DNI
I have spent at least 51min reviewing chart, test results, communication with consultants and family and providing direct patient care
Anticipated Discharge: 24 - 48 hours
Subjective/Interval History
-
Date of Service: July 04, 2025
Objective Data
-
Vital Signs:
Vital Signs
Temp Pulse Resp BP Pulse Ox
98 F 76 16 161/78 95
07/04/25 07:00 07/04/25 07:00 07/04/25 07:00 07/04/25 07:00 07/04/25 09:02
I&O
07/03/25 07/04/25 07/05/25
06:59 06:59 06:59
Intake Total 2610 / 2610 890 / 890 100 / 100
Output Total 795 / 795 420 / 420 400 / 400
Balance 1815 / 1815 470 / 470 -300 / -300
Review of Systems
-
History Source: Patient
All other systems: Reviewed and negative
Physical Exam
-
General: No Apparent Distress
GI: Soft, Nontender and Nondistended
Neuro: Awake and Alert
Psych: Calm and Apparent Dementia
--- NOTE | 2025-07-04 11:39 | PN.IRAD.UPD ---
Update Note - IRAD
- -
WENT BEDSIDE TO REMOVE PATIENT'S LEFT SIDED CHEST TUBE, CLEANED PREPPED AND DRAPED PATIENT, REMOVED THALQUICK WITH NO COMPLAINTS AND DRESSED WITH PRIMAPORE, 1130, PER DR. RASMUSSEN NO CXR NECESSARY
--- NOTE | 2025-07-04 12:36 | W.PN.PUL3 ---
Today's Communication / Plan
-
- Chest tube discontinued
- Antibiotics per infectious disease service
- Outpatient follow-up with pulmonary clinic
- Pulmonary team will sign off, please call as needed
Assessment
-
Patient is a 65-year-old male with a past medical history of hypertension, hyperlipidemia, Parkinson's disease, stroke, and dysphagia who presents with generalized weakness and decreased PO intake. He had reportedly fall out of bed and could not
get up. He had a stroke in December 2024, and was noted to have dysphagia. He was discharged from [facility] on a regular diet. Son reports that patient complained about difficulty swallowing the last few days. CXR completed on arrival with large L
sided PNA, chest tube placed by IR on 06/29/25. We are consulted for evaluation 06/29/25.
#1. Large Left pleural effusion/Empyema with loculations s/p chest tube placement 06/29/25
- Pleural fluid studies exudative, acidotic fluid with very high LDH suggestive of empyema
- Cultures have stayed negative likely related to prior antibiotic use
- Responded well to tPA/DNase with significant improved opacity.
- 70 cc fluid output over the last 24 hours. Ches tube removed 07/04.
- Agree with continuing IV Unasyn, antibiotic duration per infectious disease service
- Underlying aspiration likely etiology
- Out patient follow up with Pulmonary Clinic.
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
Hypercholesterolemia
Active tobacco use disorder
Progressive expressive aphasia with cognitive decline and progressive ambulatory dysfunction likely due to subacute left MCA infarct with parkinsonism
Chronic back pain
Plan
No oxygen was needed on admission, currently saturating >90% on RA
Prior history of lung disease is NOT noted--was a former smoker, of 30 PY quit in december
At risk for COPD, never had PFTs
Suspect patient has severe aspiration PNA given recent CVA
CXR/CT obtained indicating large pleural effusion
s/p chest tube placement by IR
Chemistry: pH <6.8 - wbc 3953 - glu <30 - ldh 2796--consistent with empyema
Culture negative, cyto negative for malignancy but with heavy neutrophil predominant inflammation
Other imaging reviewed for comparison, not present on CXR 06/25 to the same degree
Repeat CXR showing mild improvement but still remains large
Output >1L initially, overnight diminished output
s/p lytics 07/01, output overnight ~2 L
Speech following
VSE 06/29/25- Patient presents with a grossly functional oral/pharyngeal swallow despite mild lingual and pharyngeal weakness and disorganized initiation with oral transfer. No persistent laryngeal penetration or aspiration identified but risk
elevated given risk factors including but not limited to Parkinson's disease, current respiratory illness and deconditioning. Trace to minimal pharyngeal stasis cleared with secondary swallow. Esophagus with retained contrast mostly cleared
following liquid wash.
Aspiration precautions
Follow up diet recs per team
Prior ECHO results are reviewed indicating stable function
Chemistry suggestive of infection
Smoking history noted--30 pack years noted
At risk for lung disease, await path from fluid as well
Smoking cessation encouraged
Poor PO intake, will need nutrition consult likely
Encourage P.o. intake
PT OT evals
Diagnostic Data
Chest X-Ray:
CT head 01/05/2025: Possible small areas of acute/subacute infarcts in the left frontoparietal lobe. MRI would be of greater sensitivity.
CTA Head/Neck 01/05/2025: No significant vascular occlusion, aneurysm or dissection.
CHEST 06/28/25- No CTA evidence for an acute pulmonary thromboembolism. Large left pleural effusion with complete opacification of the left hemithorax. Compressive atelectasis of the entire left lung.
Mildly enlarged right hilar and subcarinal lymph nodes, nonspecific.
Echo: 06/28/25- 1. TDS. In limited views. Normal biventricular size and function without regional wall motion abnormalities.
2. LVEF is 60-65% by visual estimation. Diastolic function indeterminate.
3. No significant valvular disease. Normal estimated PASP at 24 mmHg.
4. Small pericardial effusion. Large pleural effusions.
5. Compared to prior from January 06, 2025, new small pericardial effusion and new large pleural effusions.
PFT's:
Reports and relevant images were personally reviewed.
Total time spent on this consultation __38__ minutes which includes review of history, physical exam, medications, laboratory data, personal review of imaging, extensive review of outpatient records, discussion with care team and respiratory therapy.
Subjective Data
-
Date of Service:
Date of Service: July 04, 2025
Chief Complaint: Pulmonary Follow Up
Subjective:
Comfortably sitting in bed in no acute distress.
Review of Systems
Genitourinary: Other (No new pulmonary symptoms reported)
Objective Data
Data Reviewed
Vital Signs / I&O / Oxygen:
Vital Signs
Temp Pulse Resp BP Pulse Ox
98 F 76 16 161/78 95
07/04/25 07:00 07/04/25 07:00 07/04/25 07:00 07/04/25 07:00 07/04/25 09:02
Intake and Output
07/03/25 07/04/25 07/05/25
06:59 06:59 06:59
Intake Total 2610 / 2610 890 / 890 100 / 100
Output Total 795 / 795 420 / 420 400 / 400
Balance 1815 / 1815 470 / 470 -300 / -300
SaO2 95
Nasal Cannula flow liters per 1
minute
Physical Exam
General: Comfortable and Other (NAD, thin/chronically ill appearing)
HEENT: Normocephalic, Anicteric and Moist Mucous Membranes
Cardiovascular: S1-S2 and Regular Rhythm
Respiratory: Clear, Non-Labored Respirations and Other (Good air entry bilaterally)
GI: Soft, Non Distended and Non Tender
Neurology: Awake, Alert and Other (L sided weakness, gaze preference on R)
Skin: Warm, Dry and Good Color
Labs/Micro/Reports
Lab Data
07/03/25 09:24
07/03/25 09:24
Microbiology
06/29/25 07:06 Pleural Fluid Body Fluid Culture - Final
No Growth After 72 Hours
06/29/25 07:06 Pleural Fluid Gram Stain - Final
--- NOTE | 2025-07-04 14:11 | W.PN.ID1 ---
Date of Service
Date of Service: July 04, 2025
Today's Communication
Continue antibiotics.
Assessment / Plan
Left empyema
- Culture-negative although patient on abx prior to thoracentesis
Leukocytosis; improved
PNA
HTN
Hx CVA (mild residual right weakness)
Dysphagia
Chronic back pain
Recommendations:
Pleural fluid cultures noted to be negative, although patient on several days of IV antibiotics prior to acquisition of sample which may have sterilized the cultures.
Continue with Unasyn for the present given overall clinical improvement.
Patient will need a 3 to 6-week course of IV antibiotics in the treatment of empyema.
Depending upon disposition (SNF vs home), transition to once daily ertapenem may be an option.
- Await further information regarding disposition.
Continue to monitor white count and temperature curve.
����������������������������������������������������������
Chief Complaint
-: Other (Empyema)
Subjective / Review of Systems
Review of Systems: No Fever, No Chills, Cough and No Sputum Production
Vital Signs / Physical Exam
Vital Signs
Vital Signs
Temp Pulse Resp BP Pulse Ox
98 F 76 16 161/78 95
07/04/25 07:00 07/04/25 07:00 07/04/25 07:00 07/04/25 07:00 07/04/25 09:02
Physical Exam
Constitutional: Comfortable, Chronically Ill and Non-toxic
Eyes: Sclera Anicteric
Cardiovascular: S1/S2; Negative S3/S4
Pulmonary: Non Labored
Gastrointestinal: Soft, Non Tender and Non Distended
Neurological: Awake and Alert
Psychological: Calm
Objective Data
Lab Data
Lab Results
07/03/25 09:24
07/03/25 09:24
PT 17.2 Sec (11.4-14.6) H 06/25/25 10:36
INR 1.38 06/25/25 10:36
APTT 36.5 Sec (23.4-35.0) H 06/25/25 10:36
Estimated Creat Clear 89 ml/min 07/03/25 09:24
Lactic Acid 1.3 mmol/L (0.7-2.0) 06/25/25 16:15
Total Bilirubin 0.7 mg/dl (0.2-1.3) 07/03/25 09:24
AST 46 U/L (17-59) 07/03/25 09:24
ALT < 10 U/L (0-50) 07/03/25 09:24
Alkaline Phosphatase 77 U/L (38-126) 07/03/25 09:24
Most recent labs reviewed.
Micro Results:
06/29/25 07:06 Body Fluid Culture - Final
Pleural Fluid No Growth After 72 Hours
Gram Stain - Final
06/25/25 10:46 Blood Culture - Final
Blood/Venous No Growth - Final Report
06/25/25 10:36 Blood Culture - Final
Blood/Venous No Growth - Final Report
06/25/25 16:15 Nasal Screen MRSA (PCR) - Final
Nose MRSA not detected - performed by PCR methodology.
06/25/25 13:42 Legionella Urinary Antigen - Final
Urine Negative for Legionella pneumophila Serogroup 1 antigen.
A negative result does not rule out the possiblity of
Legionella infection due to other serogroups or species of
Legionella. Clinical correlation is recommended.
Streptococcus pneumoniae Antigen (M - Final
Negative for Streptococcus pneumoniae antigen.
A negative result does not exclude infection with
Streptococcus pneumoniae. Clinical correlation is
recommended.
06/25/25 10:36 Influenza Types A & B (FER) - Final
Nasal Swab Negative for Influenza A & B, NAAT
Negative results must be combined with clinical observations
and patient history.
Nucleic Acid Amplification test (NAAT)performed on the
[employer] NOW platform.
Imaging:
07/02/2025 CXR (portable): marked decreased left chest opacification. No pleural effusion or pneumothorax. A left basilar chest tube remains in place.
06/28/2025 CT chest (PE study): no evidence for acute pulmonary thromboembolism. Large left pleural effusion with complete opacification of the left hemothorax noted. There is compressive atelectasis of the entire left lung. Mildly enlarged right
hilar and subcarinal lymph nodes noted.
Care Review
Plan reviewed with: Physician (Hospitalist)
[2025-07-04 14:46] VITALS: BP 153/81; PULSE 74; O2SAT 99
[2025-07-04 15:00] VITALS: BP 156/85
[2025-07-04 16:27] VITALS: BP 156/85
[2025-07-04] MEDS: LIPITOR 40 MG PO (17:18)
[2025-07-04] MEDS: LOVENOX 40 MG SC (17:18)
--- NOTE | 2025-07-04 19:01 | PTCARENOTE ---
PICC line placed and ready to be used as per VAT.
[2025-07-04] MEDS: FLUSH (NSS) 1 FLUSH IV (20:44)
[2025-07-04] MEDS: SENOKOT-S PO (20:46)
[2025-07-04 23:23] VITALS: BP 157/83
[2025-07-05] MEDS: UNASYN IV ×3 (02:49→13:42)
[2025-07-05 06:58] LABS: ALT (SGPT) 16 U/L (0-50); AST (SGOT) 47 U/L (17-59); Albumin 2.5 g/dl (3.5-5.0); Alkaline Phosphatase 90 U/L (38-126); Blood Urea Nitrogen 7 mg/dl (9-20); Calcium 8.1 mg/dl (8.4-10.2); Carbon Dioxide 29 mmol/L (22-30); Chloride 103 mmol/L (98-107); Estimated Creatinine Clearance 89 ml/min; Glucose 94 mg/dl (70-99); Hematocrit 29.6 % (39.0-52.0); Hemoglobin 10.1 g/dL (13.0-18.0); Mean Corp Hgb Conc. 34.1 g/dL (33.0-37.0); Mean Corpuscular Volume 79.8 fL (80.0-94.0); Nucleated Red Blood Cells % 0 % (-); Platelet Count 658 10^3/uL (130-400); Potassium 3.3 mmol/L (3.5-5.1); Red Cell Dist. Width 14.4 % (11.5-14.5); Sodium 135 mmol/L (135-145); Total Protein 5.5 g/dl (6.3-8.2); eGFR > 60.00
[2025-07-05] MEDS: VITAMIN B-12 1000 MCG PO (07:48)
[2025-07-05] MEDS: LOW STRENGTH ASPIRIN 81 MG PO (07:48)
[2025-07-05] MEDS: SINEMET 10-100 1 TABLET PO ×3 (07:48→22:28)
[2025-07-05] MEDS: MUCINEX 600 MG PO ×2 (07:48→22:28)
[2025-07-05] MEDS: FLUSH (NSS) 1 FLUSH IV ×3 (07:49→17:02)
[2025-07-05] MEDS: MIRALAX 17 GRAMS PO (07:49)
[2025-07-05 08:26] VITALS: BP 151/82
--- NOTE | 2025-07-05 09:06 | W.PN.HOSP.TC ---
Today's Communication/Plan
-
see bold
Assessment / Plan
Assessment / Plan
65yo M with cognitive impairment, Parkinson, HTN, HLD, CVA with residual R sided weakness and dysphagia brought by son due to declining status after his recent stroke 6 months ago. Found possible aspiration pneumonia and loculated L large pleural
effusion, improving s/p chest tube, however fluid Cx neg (probably due to ABx given prior to thoracentesis).
A/P:
#Sepsis on admission with Acute hypoxic insufficiency probably 2/2 complicated pneumonia with unspecified organism, possible aspiration
#L parapneumonic effusion, empyema
#Leukocytosis
CT with large L effusion: s/p chest tube on 06/29/25, Cx NTD
ph <6.8, large amount of WBC and high LDH - empyema by definition
MRSA screen neg - stop Doxy. Bcx NTD
switch to Unasyn on 06/28/25, as per ID - will need up to 6 weeeks Abx - PICC ordered on 07/04/25. Option is Ertapenem upon d/c for convenience of administration
Appreciate pulmonology input, chest tube removed 07/04/2025
IV Unasyn changed to IV ertapenem, PICC placed
ID recommends discharge on ertapenem 1 g daily to complete a 6-week course of IV antibiotics
Plan for discharge to short-term rehab tomorrow
#Dysphagia
With concern for aspiration pneumonia
VSE - no signs of aspiration, cont regular diet as agreed with SCRAP METAL COLLECTOR
#Elevated ddimer
#Elevated ferritin
Acute phase reactant 2/2 pneumonia
#HX of CVA with residual R sided weakness and dysphagia
SCRAP METAL COLLECTOR advised regular diet
ASA, statin
#Reactive thrombocytosis
Follow CBC
#Elevated troponin
Thought to be 2/2 non-ischemic myocardial injury, cannot exclude 2/2 hypoxia
Follow trop - decreased to minimal 0.545-0.626-0.325-0.041
EKG with no overt TWI or ST changes concerning for ACS
Echo:Normal biventricular size and function without regional wall motion abnormalities, EF 60-65%, minimal pericardial effusion
#Stage 1 sacrum pressure injury, POA
#Stage 1 bilateral heels pressure injury, POA
Wound care
#Hypokalemia
Replete
#Cognitive impairment vs dementia
Poor historian
#Hyponatremia
Suspect 2/2 pulmonary disease
Improved on FR - liberalize fluid intake, trend Na
#Ambulatory deficiency
PT/OT recommended STR
#History of essential HTN, with intermittent of hypotension
Resume lisinopril 5 mg daily
Stay off amlodipine
#Rhabdomyolysis
2/2 falls
Improved status post IV fluids
#KEVIN
Received IV iron
outpatient GI to be considered by PCP
#Relative b12 deficiency
Supplement
#HLD
#Parkinson
cont statin, Sinemet
DVT ppx Lovenox
DNR/DNI
Total time spent to see the patient on the floor, examine the patient, review data and lab results, discuss treatment plan with patient, nursing staff around 40 minutes.
Physical Exam
General: No acute distress
HEENT: Normocephalic, Atraumatic, EOMI, MMM
Respiratory: Diminished breath sounds at the bases
Cardiac: Normal S1/S2, Regular Rate and Rhythm
GI: Soft, Nontender, Nondistended, Normal Bowel Sounds
Extremities: No Clubbing, Cyanosis, or Edema
Neuro: Nonfocal/Grossly Intact
Anticipated Discharge: Within 24 hours
Subjective/Interval History
-
Date of Service: July 05, 2025
Patient denies chest pain, shortness of breath, coughing. No fever, no vomiting.
Objective Data
-
Labs:
Laboratory Results
07/05/25
06:05
WBC 10.0
Hgb 10.1 L
Hct 29.6 L
Plt Count 658 H
Sodium 135
Potassium 3.3 L
Chloride 103
Carbon Dioxide 29
BUN 7 L
Creatinine 0.5 L
Glucose 94
Calcium 8.1 L
Total Bilirubin 0.6
AST 47
ALT 16
Alkaline Phosphatase 90
Vital Signs:
Vital Signs
Temp Pulse Resp BP Pulse Ox
97.7 F 77 18 151/82 98
07/05/25 08:26 07/05/25 08:26 07/05/25 08:26 07/05/25 08:26 07/05/25 08:26
I&O
07/04/25 07/05/25 07/06/25
06:59 06:59 06:59
Intake Total 890 / 890 580 / 580
Output Total 420 / 420 1500 / 1500
Balance 470 / 470 -920 / -920
[2025-07-05 09:35] VITALS: BP 124/71; PULSE 75; O2SAT 96
[2025-07-05 09:40] VITALS: BP 124/71; PULSE 75; O2SAT 96
[2025-07-05 10:32] VITALS: BP 124/71; PULSE 75; O2SAT 96
[2025-07-05] MEDS: KCL 40 MEQ PO (11:18)
--- NOTE | 2025-07-05 14:22 | W.PN.ID1 ---
Date of Service
Date of Service: July 05, 2025
Today's Communication
Continue antibiotics. Transition to once daily ertapenem.
Assessment / Plan
Left empyema
- Culture-negative, although patient on abx prior to thoracentesis
Leukocytosis; improved
PNA
HTN
Hx CVA (mild residual right weakness)
Dysphagia
Chronic back pain
Recommendations:
Pleural fluid cultures noted to be negative, although patient on several days of IV antibiotics prior to acquisition of sample which may have sterilized the cultures.
Patient will need a 6-week course of IV antibiotics in the treatment of empyema.
Patient for transfer to [facility] facility to complete course of antibiotics.
Will transition to once daily or ertapenem.
Follow weekly CBC and BMP.
����������������������������������������������������������
Chief Complaint
-: Other (Left empyema)
Subjective / Review of Systems
Review of Systems: No Fever, No Chills, No Cough and No Sputum Production
Vital Signs / Physical Exam
Vital Signs
Vital Signs
Temp Pulse Resp BP Pulse Ox
97.7 F 77 18 151/82 98
07/05/25 08:26 07/05/25 08:26 07/05/25 08:26 07/05/25 08:26 07/05/25 08:26
Physical Exam
Constitutional: Comfortable, Chronically Ill and Non-toxic
Eyes: Sclera Anicteric
Cardiovascular: S1/S2; Negative S3/S4
Pulmonary: Non Labored
Gastrointestinal: Soft, Non Tender and Non Distended
Neurological: Awake and Alert
Psychological: Calm
Objective Data
Lab Data
Lab Results
07/05/25 06:05
07/05/25 06:05
PT 17.2 Sec (11.4-14.6) H 06/25/25 10:36
INR 1.38 06/25/25 10:36
APTT 36.5 Sec (23.4-35.0) H 06/25/25 10:36
Estimated Creat Clear 89 ml/min 07/05/25 06:05
Lactic Acid 1.3 mmol/L (0.7-2.0) 06/25/25 16:15
Total Bilirubin 0.6 mg/dl (0.2-1.3) 07/05/25 06:05
AST 47 U/L (17-59) 07/05/25 06:05
ALT 16 U/L (0-50) 07/05/25 06:05
Alkaline Phosphatase 90 U/L (38-126) 07/05/25 06:05
Most recent labs reviewed.
Micro Results:
06/29/25 07:06 Body Fluid Culture - Final
Pleural Fluid No Growth After 72 Hours
Gram Stain - Final
06/25/25 10:46 Blood Culture - Final
Blood/Venous No Growth - Final Report
06/25/25 10:36 Blood Culture - Final
Blood/Venous No Growth - Final Report
06/25/25 16:15 Nasal Screen MRSA (PCR) - Final
Nose MRSA not detected - performed by PCR methodology.
06/25/25 13:42 Legionella Urinary Antigen - Final
Urine Negative for Legionella pneumophila Serogroup 1 antigen.
A negative result does not rule out the possiblity of
Legionella infection due to other serogroups or species of
Legionella. Clinical correlation is recommended.
Streptococcus pneumoniae Antigen (M - Final
Negative for Streptococcus pneumoniae antigen.
A negative result does not exclude infection with
Streptococcus pneumoniae. Clinical correlation is
recommended.
06/25/25 10:36 Influenza Types A & B (FER) - Final
Nasal Swab Negative for Influenza A & B, NAAT
Negative results must be combined with clinical observations
and patient history.
Nucleic Acid Amplification test (NAAT)performed on the
[employer] platform.
Imaging:
07/02/2025 CXR (portable): marked decreased left chest opacification. No pleural effusion or pneumothorax. A left basilar chest tube remains in place.
06/28/2025 CT chest (PE study): no evidence for acute pulmonary thromboembolism. Large left pleural effusion with complete opacification of the left hemothorax noted. There is compressive atelectasis of the entire left lung. Mildly enlarged right
hilar and subcarinal lymph nodes noted.
Care Review
Plan reviewed with: Physician (Hospitalist)
--- NOTE | 2025-07-05 15:09 | CM ---
6-week course of IV antibiotics for treatment of empyema. Transition to daily dose ertapenem. Discharge POC: SNF. [place] [facility] will probably have beds available on 07/06/25.
[2025-07-05 15:56] VITALS: BP 151/80
[2025-07-05] MEDS: ZESTRIL 5 MG PO (17:02)
[2025-07-05] MEDS: INVANZ 60 MG IV (17:02)
--- NOTE | 2025-07-05 17:08 | PTCARENOTE ---
Pt AAO x3, VENETIE IRA; forgetful; easily irritated. NOLAND; RUE/RLE weak; OOB to chair with assist x2; needs much encouragement to participate in OOB activity. VSS. On room air- pulse ox 98%, no c/o SOB, pt has occ loose, non-productive cough. Abd soft,
rounded, sharon PO. Incont dark dalton urine; condom cath P/I. Lt chest dsg D/I. Resting in bed at present; son at bedside. Will continue to monitor.
[2025-07-05] MEDS: LIPITOR 40 MG PO (17:59)
[2025-07-05] MEDS: LOVENOX 40 MG SC (17:59)
[2025-07-05] MEDS: SENOKOT-S 2 TABLET PO (22:29)
[2025-07-05 23:00] VITALS: BP 140/79
[2025-07-06 04:57] LABS: Blood Urea Nitrogen 7 mg/dl (9-20); Calcium 7.8 mg/dl (8.4-10.2); Carbon Dioxide 29 mmol/L (22-30); Chloride 104 mmol/L (98-107); Estimated Creatinine Clearance 89 ml/min; Glucose 98 mg/dl (70-99); Magnesium 2.1 mg/dl (1.6-2.3); Potassium 3.4 mmol/L (3.5-5.1); Sodium 135 mmol/L (135-145); eGFR > 60.00
[2025-07-06 05:08] LABS: Hematocrit 28.9 % (39.0-52.0); Hemoglobin 9.7 g/dL (13.0-18.0); Mean Corp Hgb Conc. 33.6 g/dL (33.0-37.0); Mean Corpuscular Volume 79.4 fL (80.0-94.0); Platelet Count 619 10^3/uL (130-400); Red Cell Dist. Width 14.6 % (11.5-14.5)
[2025-07-06 07:30] VITALS: BP 138/85
[2025-07-06] MEDS: SINEMET 10-100 1 TABLET PO ×2 (08:01→15:30)
[2025-07-06] MEDS: LOW STRENGTH ASPIRIN 81 MG PO (08:01)
[2025-07-06] MEDS: MUCINEX 600 MG PO (08:01)
[2025-07-06] MEDS: VITAMIN B-12 1000 MCG PO (08:01)
[2025-07-06] MEDS: ZESTRIL 5 MG PO (08:02)
[2025-07-06] MEDS: MIRALAX PO (08:37)
--- NOTE | 2025-07-06 08:56 | W.PN.HOSP.TC ---
Today's Communication/Plan
-
Discharged to short-term rehab today
Assessment / Plan
Assessment / Plan
65yo M with cognitive impairment, Parkinson, HTN, HLD, CVA with residual R sided weakness and dysphagia brought by son due to declining status after his recent stroke 6 months ago. Found possible aspiration pneumonia and loculated L large pleural
effusion, improving s/p chest tube, however fluid Cx neg (probably due to ABx given prior to thoracentesis).
A/P:
#Sepsis on admission with Acute hypoxic insufficiency probably 2/2 complicated pneumonia with unspecified organism, possible aspiration
#L parapneumonic effusion, empyema
#Leukocytosis
CT with large L effusion: s/p chest tube on 06/29/25, Cx NTD
ph <6.8, large amount of WBC and high LDH - empyema by definition
MRSA screen neg - stop Doxy. Bcx NTD
switch to Unasyn on 06/28/25, as per ID - will need up to 6 weeeks Abx - PICC ordered on 07/04/25. Option is Ertapenem upon d/c for convenience of administration
Appreciate pulmonology input, chest tube removed 07/04/2025
IV Unasyn changed to IV ertapenem, PICC placed
ID recommends discharge on ertapenem 1 g daily to complete a 6-week course of IV antibiotics through 08/05/2025
Medically stable for discharge to short-term rehab today
#Dysphagia
With concern for aspiration pneumonia
VSE - no signs of aspiration, cont regular diet as agreed with BATTER DEPOSITOR
#Elevated ddimer
#Elevated ferritin
Acute phase reactant 2/2 pneumonia
#HX of CVA with residual R sided weakness and dysphagia
BATTER DEPOSITOR advised regular diet
ASA, statin
#Reactive thrombocytosis
Follow CBC
#Elevated troponin
Thought to be 2/2 non-ischemic myocardial injury, cannot exclude 2/2 hypoxia
Follow trop - decreased to minimal 0.545-0.626-0.325-0.041
EKG with no overt TWI or ST changes concerning for ACS
Echo:Normal biventricular size and function without regional wall motion abnormalities, EF 60-65%, minimal pericardial effusion
#Stage 1 sacrum pressure injury, POA
#Stage 1 bilateral heels pressure injury, POA
Wound care
#Hypokalemia
Replete prior to dc
#Cognitive impairment vs dementia
Poor historian
#Hyponatremia
Suspect 2/2 pulmonary disease
Improved on FR - liberalize fluid intake, trend Na
#Ambulatory deficiency
PT/OT recommended STR
#History of essential HTN, with intermittent of hypotension
Resume lisinopril 5 mg BID
Stay off amlodipine
#Rhabdomyolysis
2/2 falls
Improved status post IV fluids
#KEVIN
Received IV iron
outpatient GI to be considered by PCP
#Relative b12 deficiency
Supplement
#HLD
#Parkinson
Cont statin, Sinemet
#Underweight BMI
Encourage oral intake
DVT ppx Lovenox
DNR/DNI
Physical Exam
General: No acute distress
HEENT: Normocephalic, Atraumatic, EOMI, MMM
Respiratory: Diminished breath sounds at the bases
Cardiac: Normal S1/S2, Regular Rate and Rhythm
GI: Soft, Nontender, Nondistended, Normal Bowel Sounds
Extremities: No Clubbing, Cyanosis, or Edema
Neuro: Nonfocal/Grossly Intact
Anticipated Discharge: Today
Subjective/Interval History
-
Date of Service: July 06, 2025
Patient denies chest pain, shortness of breath, or coughing. No fever, no vomiting.
Objective Data
-
Labs:
Laboratory Results
07/06/25
04:25
WBC 7.8
Hgb 9.7 L
Hct 28.9 L
Plt Count 619 H
Sodium 135
Potassium 3.4 L
Chloride 104
Carbon Dioxide 29
BUN 7 L
Creatinine 0.5 L
Glucose 98
Calcium 7.8 L
Vital Signs:
Vital Signs
Temp Pulse Resp BP Pulse Ox
98.2 F 68 16 168/70 95
07/06/25 07:30 07/06/25 08:02 07/06/25 07:30 07/06/25 08:02 07/06/25 07:30
I&O
07/05/25 07/06/25 07/07/25
06:59 06:59 06:59
Intake Total 580 / 580 900 / 900
Output Total 1500 / 1500 925 / 925
Balance -920 / -920 -
[2025-07-06] MEDS: KCL 40 MEQ PO (10:18)
--- NOTE | 2025-07-06 11:27 | CM ---
Addendum entered by Babs Tovar 07/06/25 11:46:
[facility]
[phone]
[phone]
Original Note:
Reviewed chart. IMM given to emilie Rosas in light of patient's cognitive impairment.Confirmed bed availability for today after 5pm. Pt and emilie Mari made aware at [facility]. Ambulance transport forms completed. [facility] is aware
of pt's IV ABX. PICC line in place.
Plan: DC to [facility] via ambulance.
--- NOTE | 2025-07-06 11:41 | W.DCSUMMARY ---
Discharge Summary
Discharge Data
Date of Admission: 06/25/25
Date of Discharge: 07/06/25
-
Pending Results: No
Hospital Course
Discharge diagnosis:
Sepsis on admission
Acute hypoxic respiratory insufficiency
Pneumonia, probable aspiration
Left empyema
Dysphagia
History of stroke with residual right-sided weakness and dysphagia
Reactive thrombocytosis
Nonischemic myocardial injury troponin elevation
Hypokalemia
Hyponatremia
Cognitive impairment
Rhabdomyolysis
Essential hypertension
Iron deficiency anemia
Parkinson's disease
B12 deficiency
Underweight
Consults: Pulmonology, ID
Procedures:
06/29/2025: Left chest tube placement by IR
Chest CT:
No CTA evidence for an acute pulmonary thromboembolism.
Large left pleural effusion with complete opacification of the left hemithorax. Compressive atelectasis of the entire left lung.
Mildly enlarged right hilar and subcarinal lymph nodes, nonspecific.
Hospital course:
65-year-old male with a past medical history of hypertension, hyperlipidemia, Parkinson's disease, stroke, and dysphagia who was admitted for sepsis secondary to pneumonia and left empyema. Patient was seen in conjunction with pulmonology and ID.
He was treated with IV antibiotics. He had a chest CT, which showed a large left-sided pleural effusion. He had left chest tube placement by IR on 06/29/2025. The fluid was exudative. Cultures were negative, as he received antibiotics prior to
obtaining the the pleural fluid.
Patient did have acute hypoxic respiratory insufficiency. He required 2-3 L, and was successfully weaned to room air.
Patient had a fall prior to admission, and had rhabdomyolysis. This resolved with IV fluids. PT recommended short-term rehab.
Patient had hyponatremia upon admission. Suspect this is due to his pulmonary disease. This resolved with fluid restriction and IV fluids.
Patient was seen in conjunction with speech pathology, and he was cleared for a regular diet. VSE was negative for aspiration.
Patient had hypokalemia. This was repleted.
He was also found to have B12 deficiency and iron deficiency anemia. He received IV iron while in the hospital, and was started on B12 supplements.
Pulmonology managed the patient's chest tube. The chest tube was removed on 07/04/2025. Patient did well. ID recommends discharge on ertapenem through 08/05/2025 to complete a 6-week course. He needs to follow-up with his PCP 1 week after he
leaves rehab.
Disposition: Short-term rehab
Discharge planning: Required 40 minutes
Discharge Plan
-
Patient Disposition: Assisted/SNF
Discharge Diagnosis/Procedures: Sepsis, left-sided pneumonia with empyema, history of stroke with dysphagia, hypokalemia
Condition: Good
Diet: Regular
Activity: As tolerated
Blood Work: CBC & BMP every Saturday
Activity Restrictions/Additional Instructions:
The infection doctor recommends you take ertapenem 1 g IV through 08/05/25.
Please follow-up with your primary care provider 1 week after you leave rehab.
Wound Care Instructions
R back wound-clean with saline, silicone border foam, change q 3 days and prn loosened dressing.
Protective silicone border foam to sacrum-change q 3 days and prn loosened dressing.
Zinc barrier ointment to penis/scrotal skin bid.
Air mattress
Turning schedule
Soft heel relief boots as tolerated; elevate heels off bed with pillow/s while boots off.
Pressure redistributing chair cushion (i.e. Air chair cushion).
Follow up with wound director medicare sales or at wound care center if needed, call for an appointment.
Referrals:
Jessica Rendon, DO [Active, Pulmonary Medicine] - in one month
Nasra Tipton MD, Resident [Family Provider, General] - in one to two weeks
Referral Note: referral to GI for EGD/COlonoscopy 2/2 KEVIN
Prescriptions:
New
sennosides-docusate sodium [Senna Plus] 8.6-50 mg Tablet
2 tab PO HS Qty: 0 0RF
cyanocobalamin (vitamin B-12) [Vitamin B-12] 500 mcg Tablet
1,000 mcg PO DAILY Qty: 0 0RF
aspirin 81 mg Tablet,Chewable
81 mg PO DAILY Qty: 0 0RF
Ertapenem [Invanz] 1000 MG
0.9% Sodium Chloride [Nss] 50 ML
120 mls/hr IV Q24H
Ordered By: Javier Rodgers MD
Last Taken: 07/05/25 17:02 60 mls
Continued
atorvastatin 40 mg Tablet
40 mg PO QPM Qty: 30 0RF
carbidopa-levodopa 10-100 mg Tablet
1 tab PO TID
lisinopril 5 mg Tablet
5 mg PO BID
Discontinued
amlodipine 5 mg tablet
5 mg PO BID
Discharge Orders:
Discharge Patient (As Directed); Ordered 07/06/25
Ordered By: Javier Rodgers
Discharge Date and Time
Print Language: TAJIK
--- NOTE | 2025-07-06 12:50 | PN.CDI ---
CDI
- -
CDI:
Physician Documentation Request
Admit Date: 06/25/25 12:41
Dear Doctor Do,
Please review the following and provide your response in the progress notes.
Clinical Indicators:
Height: 5'6
Weight: 114 lbs
BMI: 18.4
Other Clinical Notes: Market Research Consultant note indicates underweight
If possible, please provide an associated diagnosis related to the abnormal BMI, such as:
Underweight
Cachectic
Other (please specify)
Use of terms such as suspected, likely, concern for, or probable (associated with a specific diagnosis that is being evaluated, monitored, or treated as if it exists) are acceptable and can be coded in the inpatient setting, when documented at the
time of discharge.
Thank you,
Vinod Cotto RN
CDI Specialist
Please use your independent medical judgment in providing your response.
--- NOTE | 2025-07-06 13:59 | W.PN.ID1 ---
Date of Service
Date of Service: July 06, 2025
Today's Communication
Continue ertapenem.
Assessment / Plan
Left empyema
- Culture-negative, although patient on abx prior to thoracentesis
Leukocytosis; improved
PNA
HTN
Hx CVA (mild residual right weakness)
Dysphagia
Chronic back pain
Recommendations:
Pleural fluid cultures noted to be negative, although patient on several days of IV antibiotics prior to acquisition of sample which may have sterilized the cultures.
Patient will need a 6-week course of IV antibiotics in the treatment of empyema.
Patient for eventual transfer to [facility] facility to complete course of antibiotics.
Continue ertapenem.
Follow weekly CBC and BMP.
Infusion sheet has been placed on paper chart.
����������������������������������������������������������
Chief Complaint
-: Other (Left empyema)
Subjective / Review of Systems
Review of Systems: No Fever and No Chills
Vital Signs / Physical Exam
Vital Signs
Vital Signs
Temp Pulse Resp BP Pulse Ox
98.2 F 68 16 168/70 95
07/06/25 07:30 07/06/25 08:02 07/06/25 07:30 07/06/25 08:02 07/06/25 07:30
Physical Exam
Constitutional: Comfortable, Chronically Ill and Non-toxic
Eyes: Sclera Anicteric
Cardiovascular: S1/S2; Negative S3/S4
Pulmonary: Coarse and Non Labored
Gastrointestinal: Soft, Non Tender and Non Distended
Neurological: Awake and Alert
Psychological: Calm
Objective Data
Lab Data
Lab Results
07/06/25 04:25
07/06/25 04:25
PT 17.2 Sec (11.4-14.6) H 06/25/25 10:36
INR 1.38 06/25/25 10:36
APTT 36.5 Sec (23.4-35.0) H 06/25/25 10:36
Estimated Creat Clear 89 ml/min 07/06/25 04:25
Lactic Acid 1.3 mmol/L (0.7-2.0) 06/25/25 16:15
Total Bilirubin 0.6 mg/dl (0.2-1.3) 07/05/25 06:05
AST 47 U/L (17-59) 07/05/25 06:05
ALT 16 U/L (0-50) 07/05/25 06:05
Alkaline Phosphatase 90 U/L (38-126) 07/05/25 06:05
Most recent labs reviewed.
Micro Results:
06/29/25 07:06 Body Fluid Culture - Final
Pleural Fluid No Growth After 72 Hours
Gram Stain - Final
06/25/25 10:46 Blood Culture - Final
Blood/Venous No Growth - Final Report
06/25/25 10:36 Blood Culture - Final
Blood/Venous No Growth - Final Report
06/25/25 16:15 Nasal Screen MRSA (PCR) - Final
Nose MRSA not detected - performed by PCR methodology.
06/25/25 13:42 Legionella Urinary Antigen - Final
Urine Negative for Legionella pneumophila Serogroup 1 antigen.
A negative result does not rule out the possiblity of
Legionella infection due to other serogroups or species of
Legionella. Clinical correlation is recommended.
Streptococcus pneumoniae Antigen (M - Final
Negative for Streptococcus pneumoniae antigen.
A negative result does not exclude infection with
Streptococcus pneumoniae. Clinical correlation is
recommended.
06/25/25 10:36 Influenza Types A & B (FER) - Final
Nasal Swab Negative for Influenza A & B, NAAT
Negative results must be combined with clinical observations
and patient history.
Nucleic Acid Amplification test (NAAT)performed on the
[employer] platform.
Imaging:
07/02/2025 CXR (portable): marked decreased left chest opacification. No pleural effusion or pneumothorax. A left basilar chest tube remains in place.
06/28/2025 CT chest (PE study): no evidence for acute pulmonary thromboembolism. Large left pleural effusion with complete opacification of the left hemothorax noted. There is compressive atelectasis of the entire left lung. Mildly enlarged right
hilar and subcarinal lymph nodes noted.
[2025-07-06 15:20] VITALS: BP 144/82
[2025-07-06] MEDS: INVANZ 60 MG IV (15:30)
[2025-07-06] MEDS: KCL 20 MEQ PO (15:32)
== END 2025-07-06 18:40 | DRG 871 ==
LOC: 4 EAST ACU 12:41
PROVIDERS: Internal Medicine; Radiology Vascular & Interventional Radiology; ADMITTING PHYSICIAN Family Medicine; CONSULT PHYSICIAN Internal Medicine; CONSULT PHYSICIAN Internal Medicine Infectious Disease; EMERGENCY PHYSICIAN Emergency Medicine
PROC: 0W9B30Z Drainage of Left Pleural Cavity with Drainage Device, Percutaneous Approach (ICD-10-PCS; 2025-06-29)
PROC: 3E0L3GC Introduction of Other Therapeutic Substance into Pleural Cavity, Percutaneous Approach (ICD-10-PCS; 2025-07-01)
PROC: 3E0L317 Introduction of Other Thrombolytic into Pleural Cavity, Percutaneous Approach (ICD-10-PCS; 2025-07-01)
PROC: 02HV33Z Insertion of Infusion Device into Superior Vena Cava, Percutaneous Approach (ICD-10-PCS; 2025-07-04)
DX: A41.89 Other specified sepsis (principal); J69.0 Pneumonitis due to inhalation of food and vomit; J86.9 Pyothorax without fistula; I69.351 Hemiplegia and hemiparesis following cerebral infarction affecting right dominant side; E87.1 Hypo-osmolality and hyponatremia; M62.82 Rhabdomyolysis; I5A Non-ischemic myocardial injury (non-traumatic); E87.20 Acidosis, unspecified; R47.01 Aphasia; I31.39 Other pericardial effusion (noninflammatory); J98.11 Atelectasis; Z68.1 Body mass index [BMI] 19.9 or less, adult; J91.8 Pleural effusion in other conditions classified elsewhere; R62.7 Adult failure to thrive; G89.29 Other chronic pain; I10 Essential (primary) hypertension; R06.89 Other abnormalities of breathing; M54.9 Dorsalgia, unspecified; E87.6 Hypokalemia; G20.A1 Parkinson's disease without dyskinesia, without mention of fluctuations; E78.00 Pure hypercholesterolemia, unspecified; R41.89 Other symptoms and signs involving cognitive functions and awareness; E53.8 Deficiency of other specified B group vitamins; L89.151 Pressure ulcer of sacral region, stage 1; L89.621 Pressure ulcer of left heel, stage 1; L89.611 Pressure ulcer of right heel, stage 1; D50.9 Iron deficiency anemia, unspecified; F17.200 Nicotine dependence, unspecified, uncomplicated; R26.2 Difficulty in walking, not elsewhere classified; D75.838 Other thrombocytosis; E86.1 Hypovolemia; R63.6 Underweight; R09.02 Hypoxemia; I69.391 Dysphagia following cerebral infarction; W06.XXXA Fall from bed, initial encounter; Y93.89 Activity, other specified; Y92.003 Bedroom of unspecified non-institutional (private) residence as the place of occurrence of the external cause; Z66 Do not resuscitate; Z79.82 Long term (current) use of aspirin; Z11.52 Encounter for screening for COVID-19; Z79.899 Other long term (current) drug therapy
CPT/HCPCS: 32557; 32561; 71045; 71275; 74230; 80048; 80053; 81003; 81015; 82150; 82533; 82550; 82570; 82607; 82728; 82945; 83540; 83550; 83605; 83615; 83735; 83880; 83930; 83935; 83986; 84100; 84300; 84443; 84478; 84484; 85025; 85027; 85379; 85610; 85730; 87015; 87040; 87070; 87205; 87449; 87502; 87641; 87811; 87899; 88112; 88305; 89051; 92610; 92611; 93005; 93306; 93970; 96361; 96365; 96367; 97163; 97167; 97530; 97535; 99152; 99153; 99291; C1729; C1769; J1335; J2916; J2997; Q9967